=== PATIENT | male | born 1960 | race Hispanic/Latino ===

== ENCOUNTER 2020-05-10 15:14 | Emergency (ER) | payer MEDICARE ==
--- OUTSIDE RECORDS SUMMARY | 2020-05-10 15:16 | XMS REPORT | Continuity of Care Document ---
:1960 Author Organization [facility] t Address [address] [place] [address] Care Team Providers Name Role Phone Unavailable Unavailable Unavailable Problems Condition Condition Condition Status Onset Resolution Last Treating Co mments Source Name Details Category Date Date Treatment Clinician Date Combined Combined Diagnosis Active [facility] - insufficie insufficie Me moria ncy and ncy and l corporo-ve corporo-ve Ou tpati nous nous ent occlusive occlusive Clin ics erectile erectile dysfunctio dysfunctio n n Elevated Elevated Diagnosis Active [facility] PSA PSA [facility] BPH loc BPH loc Diagnosis Active [facility] w/o ur w/o ur [facility] - obs/LUTS obs/LUTS [facility] Allergies, Adverse Reactions, Alerts This patient has no known allergies or adverse reactions. Medications Ordered Filled Start Stop Current Ordering Indication Dosage Frequency Signature Comments Components Source Medication Medication Date Date Medication? Clinician (SIG) Name Name Valsartan Valsartan Yes [place] [address] [facility] Apriso Apriso Yes [place] [address] [facility] [place] [facility] Dexilant Dexilant Yes [place] [address] [facility] Tamsulosin Tamsulosin 2019- No [place] [address] [address] HCl HCl 08-03 Marcelino [facility] - 00:00 [facility] :00 l [facility] Procedures This patient has no known procedures. Encounters Start End Encounter Admission Attending Care Care Encounter Source Date/Time Date/Time Type Type Clinicians Facility Department ID 2020-03-08 2020-03-08 [facility] [id number] [facility] [address] 09[facility]00 09:00:00 t Specialty/U [facility] kes - Specialty rology [facility] /Urology Clinic l Clinic Outpati ent Clinics 2019-12-07 2019-12-07 [facility] [id number] [facility] [address] 09:30[facility]00 09:30:00 t Specialty/U [facility] kes - Specialty rology Memori a /Urology Clinic l Clinic Outpati ent Clinics 2019-09-06 2019-09-06 [facility] [id number] [facility] 10:30:00 10:30:00 t Specialty/U [facility]inta kes - Specialty rology Memori a /Urology Clinic l Clinic Outpati ent Clinics 2019-06-26 2019-06-26 [facility] [id number] [address] 12:44:00 12:44:00 t Specialty/U Aminta kes - Specialty rology Memori a /Urology Clinic l Clinic Outpati ent Clinics 2019-06-20 2019-06-20 [facility] [id number] [address] 10:00:00 10:00:00 t Specialty/U Aminta kes - Specialty rology Memori a /Urology Clinic l Clinic Outpati ent Clinics 2019 2019 [facility] [id number] 12:45:00 12:45:00 t Specialty/U Aminta kes - Specialty rology Memori a /Urology Clinic l Clinic Outpati ent Clinics 2019-06-05 2019-06-05 [facility] [id number] [address] 10:30:00 10:30:00 t Specialty/U Aminta kes - Specialty rology Memori a /Urology Clinic l Clinic Outpati ent Clinics Results This patient has no known results.
--- OUTSIDE RECORDS SUMMARY | 2020-05-10 15:16 | XMS REPORT ---
:1960 Author Organization [employer] Care Team Providers Name Role Phone [place] Benson Provider Role Unavailable Allergies, Adverse Reactions, Alerts Substance Reaction Event Type N.K.D.A. 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 Assessment BPH loc w/o ur obs/LUTS N40.0 Acti ve Assessment Elevated PSA R97.20 Active Medications Medication Code Code Instructions Start End Status Dosage System Date Date Dexilant [facility] 17819149177 60 MG Orally Active 1 caps ule Once a day Valsartan [facility] 50986918459 160 MG Orally Active 1 ta blet Once a day Apriso [facility] 32179804354 0.375 GM Orally Active 4 ca psules Once a day in the morning Tamsulosin HCl [facility] 89804753491 0.4 MG Orally Active 1 capsule Once a day Results No Known Results Summary Purpose eClinicalWorks Submission
--- NOTE | 2020-05-10 16:14 | RAD REPORT ---
EXAM DESCRIPTION: RAD - Chest Single View - 05/10/2020 4:01 pm CLINICAL HISTORY: CHEST PAIN, hypertension COMPARISON: January 2014 TECHNIQUE: AP portable chest image was obtained 05/10/2020 4:01 pm . FINDINGS: Lungs are clear. Heart and vasculature are normal. No measurable pleural effusion and no p neumothorax. No acute bony abnormality seen. No acute aortic findings suspected. IMPRESSION: No acute cardiopulmonary process. No significant change from comparison.
[2020-05-10 16:27] LABS: Absolute Lymphocytes (CBC) 1.7 K/uL (0.7-4.9); Basophils % 1.3 % (0-1.3); Hematocrit 36.8 % (39.6-49.0); Lymphocytes % 24.1 % (15.3-44.8); MPV 11.7 fL (7.6-11.3); RBC Red Blood Cell Count 4.35 M/uL (4.33-5.43)
[2020-05-10 16:28] LABS: Protime INR 1.07
[2020-05-10 16:44] LABS: ALT/SGPT 27 U/L (12-78); AST/SGOT 19 U/L (15-37); Albumin 3.2 g/dL (3.4-5.0); Alkaline Phosphatase 104 U/L (45-117); BUN Blood Urea Nitrogen 21 mg/dL (7-18); Bicarbonate 25 mmol/L (21-32); Bilirubin Direct 0.2 mg/dL (0-0.2); Bilirubin Total 0.6 mg/dL (0.2-1.0); Glucose Level 237 mg/dL (74-106); Magnesium 2.1 mg/dL (1.8-2.4); NT PRO-BNP 422 pg/mL (<125); Potassium 4.9 mmol/L (3.5-5.1); Protein, Total 7.9 g/dL (6.4-8.2); Sodium Level 136 mmol/L (136-145); Troponin (Emerg Dept Use Only) < 0.02 ng/mL (0.0-0.045)
--- NOTE | 2020-05-10 16:52 | ER ---
Nurse's Notes [facility] Name: Ranjit Connor Age: 59 yrs Sex: Male : 1960 Arrival Date: 05/10/2020 Time: 15:17 Bed 2 Private MD: Aracely Orosco H Diagnosis: Essential (primary) hypertension Presentation: 05/10 15:24 Chief complaint: Patient states: BP 206/82 earlier today at the dentists office. + YOST. ll1 Coronavirus screen: Client denies travel out of the [place] in the last 14 days. At this time, the client does not indicate any symptoms associated with coronavirus-19. Ebola Screen: Patient denies travel to an Ebola-affected area in the 21 days before illness onset. Initial Sepsis Screen: Does the patient meet any 2 criteria? No. Patient's initial sepsis screen is negative. Does the patient have a suspected source of infection? No. Patient's initial sepsis screen is negative. Risk Assessment: Do you want to hurt yourself or someone else? Patient reports no desire to harm self or others. Onset of symptoms was May 10, 2020. 15:24 Method Of Arrival: Ambulatory ll1 15:24 Acuity: ALEXANDER 3 ll1 Historical: - Allergies: 15:26 No Known Allergies; ll1 - PMHx: 15:26 Hypertension; Glaucoma; Diabetes - IDDM; ll1 - PSHx: 15:26 L eye retinal surgery S/P 2002; oral; L BKA; ll1 - Immunization history:: Flu vaccine is not up to date. - Social history:: Smoking status: Patient denies any tobacco usage or history of. Screenin:00 Abuse screen: Denies threats or abuse. Nutritional screening: No deficits noted. em Tuberculosis screening: No symptoms or risk factors identified. Fall Risk None identified. Assessment: 16:00 General: Appears in no apparent distress. comfortable, Behavior is calm, cooperative, em appropriate for age, Denies fever. Pain: Complains of pain in chest. Neuro: Level of Consciousness is awake, alert, obeys commands, Oriented to person, place, time, situation, Appropriate for age Reports blurred vision dizziness, headache. Cardiovascular: Capillary refill < 3 seconds Patient's skin is warm and dry. Respiratory: Airway is patent Respiratory effort is even, unlabored, Respiratory pattern is regular, symmetrical. GI: Patient currently denies nausea, vomiting. Derm: Skin is intact, is healthy with good turgor, Skin is pink, warm \T\ dry. 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 Vital Signs: 15:24 BP 180 / 82; Pulse 85; Resp 18; Temp 97.4; Pulse Ox 100% ; Weight 113.85 kg; Height 5 ll1 ft. 6 in. (167.64 cm); Pain 5/10; 16:34 BP 154 / 82; Pulse 82; Resp 18; Pulse Ox 100% on R/A; em 15:24 Body Mass Index 40.51 (113.85 kg, 167.64 cm) ll1 ED Course: 15:17 Patient arrived in ED. mr 15:17 Aracely Orosco DO is Private Physician. mr 15:25 Triage completed. ll1 15:26 Arm band placed on Patient placed in an exam room, on a stretcher. ll1 15:31 Dorita Bunch FNP-C is PHCP. kb 15:31 Alexis Marks MD is Attending Physician. kb 15:53 Mike Partida, PERRY is Primary Nurse. em 16:00 XRAY Chest (1 view) In Process Unspecified. EDMS 16:00 Patient has correct armband on for positive identification. Placed in gown. Bed in low em position. Call light in reach. surveillance monitor on. Pulse ox on. NIBP on. 16:05 Initial lab(s) drawn, by me, sent to lab. Inserted saline lock: 22 gauge in left em antecubital area, using aseptic technique. Blood collected. 16:20 EKG done, by ED staff, reviewed by Dorita BATES. em 16:51 Aracely Orosco DO is Referral Physician. kb 17:05 No provider procedures requiring assistance completed. IV discontinued, intact, tw2 bleeding controlled, No redness/swelling at site. Pressure dressing applied. Administered Medications: No medications were administered Outcome: 16:51 Discharge ordered by . kb 17:05 Discharged to home ambulatory. tw2 17:05 Condition: stable 17:05 Discharge instructions given to patient, Instructed on discharge instructions, follow up and referral plans. Demonstrated understanding of instructions, follow-up care. 17:09 Patient left the ED. tw2 Signatures: Dispatcher [employer] Dorita Saldaña, PAULO DRUMMOND-Francesca Ruano Edgar, RN RN Cordelia Killian RN RN tw2 Eugenie Mota RN RN ll1
--- NOTE | 2020-05-10 16:52 | EDPHYS ---
Physician Documentation [facility] Name: Ranjit Connor Age: 59 yrs Sex: Male : 1960 Arrival Date: 05/10/2020 Time: 15:17 Bed 2 Private MD: Aracely Orosco H ED Physician Alexis Marks HPI: 05/10 16:23 This 59 yrs old Male presents to ER via Ambulatory with complaints of High kb Blood Pressure. 16:23 The patient has elevated blood pressure and discovered this at a physician's office, kb and sent to the emergency department for evaluation. Onset: The symptoms/episode began/occurred this morning. Associated signs and symptoms: Pertinent positives: chest pain, headache, lightheadedness, Pertinent negatives: dizziness, dyspnea, nausea, visual changes, vomiting, weakness. The patient has experienced similar episodes in the past, chronically. The patient has been recently seen by a physician:. Pt reports he went to the dentist this morning and BP was high. States he has had some lightheadedness, headache and "maybe a little chest pressure." States he has had the symptoms for over a year so he didn't think anything of them. Reports he does not check his BP regularly and is on Losartan 50mg BID for HTN. States he hadn't been to the dentist in a long time so he thinks that is what made it high. . Historical: - Allergies: 15:26 No Known Allergies; ll1 - PMHx: 15:26 Hypertension; Glaucoma; Diabetes - IDDM; ll1 - PSHx: 15:26 L eye retinal surgery S/P 2002; oral; L BKA; ll1 - Immunization history:: Flu vaccine is not up to date. - Social history:: Smoking status: Patient denies any tobacco usage or history of. ROS: 16:22 Constitutional: Negative for fever, chills, and weight loss, Neck: Negative for injury, kb pain, and swelling, Respiratory: Negative for shortness of breath, cough, wheezing, and pleuritic chest pain, Abdomen/GI: Negative for abdominal pain, nausea, vomiting, diarrhea, and constipation, Back: Negative for injury and pain, MS/Extremity: Negative for injury and deformity, Skin: Negative for injury, rash, and discoloration. 16:22 Cardiovascular: Positive for chest pressure. 16:22 Neuro: Positive for headache, lightheaded. Exam: 16:22 Constitutional: This is a well developed, well nourished patient who is awake, alert, kb and in no acute distress. Head/Face: Normocephalic, atraumatic. Chest/axilla: Normal chest wall appearance and motion. Nontender with no deformity. No lesions are appreciated. Cardiovascular: Regular rate and rhythm with a normal S1 and S2. No gallops, murmurs, or rubs. Normal PMI, no JVD. No pulse deficits. Respiratory: Lungs have equal breath sounds bilaterally, clear to auscultation and percussion. No rales, rhonchi or wheezes noted. No increased work of breathing, no retractions or nasal flaring. Abdomen/GI: Soft, non-tender, with normal bowel sounds. No distension or tympany. No guarding or rebound. No evidence of tenderness throughout. Back: No spinal tenderness. No costovertebral tenderness. Full range of motion. Skin: Warm, dry with normal turgor. Normal color with no rashes, no lesions, and no evidence of cellulitis. MS/ Extremity: Pulses equal, no cyanosis. Neurovascular intact. Full, normal range of motion. Neuro: Awake and alert, GCS 15, oriented to person, place, time, and situation. Cranial nerves II-XII grossly intact. Motor strength 5/5 in all extremities. Sensory grossly intact. Cerebellar exam normal. Normal gait. 16:22 ECG was reviewed by the Attending Physician. Vital Signs: 15:24 BP 180 / 82; Pulse 85; Resp 18; Temp 97.4; Pulse Ox 100% ; Weight 113.85 kg; Height 5 ll1 ft. 6 in. (167.64 cm); Pain 5/10; 16:34 BP 154 / 82; Pulse 82; Resp 18; Pulse Ox 100% on R/A; em 15:24 Body Mass Index 40.51 (113.85 kg, 167.64 cm) ll1 MDM: 15:31 Patient medically screened. kb 16:22 Data reviewed: vital signs, nurses notes. Data interpreted: Pulse oximetry: on room air kb is 100 %. Interpretation: normal. 16:50 Counseling: I had a detailed discussion with the patient and/or guardian regarding: the kb historical points, exam findings, and any diagnostic results supporting the discharge/admit diagnosis, lab results, radiology results, the need for outpatient follow up, a family practitioner, to return to the emergency department if symptoms worsen or persist or if there are any questions or concerns that arise at home. 05/10 15:38 Order name: Basic Metabolic Panel; Complete Time: 16:48 kb 05/10 15:38 Order name: CBC with Diff; Complete Time: 16:29 kb 05/10 15:38 Order name: LFT's; Complete Time: 16:48 kb 05/10 15:38 Order name: Magnesium; Complete Time: 16:48 kb 05/10 15:38 Order name: NT PRO-BNP; Complete Time: 16:48 kb 05/10 15:38 Order name: PT-INR; Complete Time: 16:35 kb 05/10 15:38 Order name: Troponin (emerg Dept Use Only); Complete Time: 16:48 kb 05/10 15:38 Order name: XRAY Chest (1 view); Complete Time: 16:18 kb 05/10 15:38 Order name: EKG; Complete Time: 15:39 kb 05/10 15:38 Order name: Cardiac monitoring; Complete Time: 16:34 kb 05/10 15:38 Order name: EKG - Nurse/Tech; Complete Time: 16:34 kb 05/10 15:38 Order name: IV Saline Lock; Complete Time: 16:34 kb 05/10 15:38 Order name: Labs collected and sent; Complete Time: 16:34 kb 05/10 15:38 Order name: O2 Per Protocol; Complete Time: 15:39 kb 05/10 15:38 Order name: O2 Sat Monitoring; Complete Time: 15:39 kb EC:22 Rate is 80 beats/min. Rhythm is regular. QRS [place] is Normal. [place] interval is normal at kb 144 msec. QRS interval is normal at 74 msec. QT interval is normal at 368 msec. Administered Medications: No medications were administered Disposition: 05/10/20 16:51 Discharged to Home. Impression: Essential (primary) hypertension. - Condition is Stable. - Discharge Instructions: Hypertension, [id number], Managing Your Hypertension. - Medication Reconciliation Form, Thank You Letter, Antibiotic Education, Prescription Opioid Use form. - Follow up: Emergency Department; When: As needed; Reason: Worsening of condition. Follow up: Aracely Orosco DO; When: 2 - 3 days; Reason: Recheck today's complaints, Continuance of care, Re-evaluation by your physician. - Notes: Keep BP log and take to follow up appt with Dr Orosco Addendum: 05/11/2020 17:55 Co-signature as Attending Physician, Alexis Marks MD I agree with the assessment and c goncalves plan of care. Signatures: Dispatcher [employer] EDDorita Paulson, PAULO DRUMMOND-Alexis Watt MD MD cha Wise, Tara, RN RN tw2 Eugenie Mota RN RN ll1 Corrections: (The following items were deleted from the chart) 05/10 17:09 16:51 05/10/2020 16:51 Discharged to Home. Impression: Essential (primary) tw2 hypertension. Condition is Stable. Forms are Medication Reconciliation Form, Thank You Letter, Antibiotic Education, Prescription Opioid Use. Follow up: Emergency Department; When: As needed; Reason: Worsening of condition. Follow up: Aracely Orosco; When: 2 - 3 days; Reason: Recheck today's complaints, Continuance of care, Re-evaluation by your physician. kb
[2020-05-10 17:56] VITALS: TEMP 97.4; O2SAT 100
[2020-05-10 18:03] VITALS: BP 154/82
--- NOTE | 2020-05-12 11:14 | EKG ---
Test Date: 2020-05-10 Test Time: 16:19:27 Pot Lining Supervisor: HONORIO MEASUREMENT RESULTS: Intervals: Rate: 80 HI: 144 QRSD: 74 QT: 368 QTc: 424 [place]: P: 55 HI: 144 QRS: 51 T: 46 INTERPRETIVE STATEMENTS: Normal sinus rhythm Normal ECG Compared to ECG 02/23/2014 14:56:06 No significant changes Electronically Signed On 05-12-20 11:13:30 CDT by Chace Mcbride
== END 2020-05-10 17:09 | disposition home or self-care (01) ==
LOC: ER 15:14
DX: I10 Essential (primary) hypertension (principal); E11.9 Type 2 diabetes mellitus without complications
CPT/HCPCS: 36415; 71045; 80048; 80076; 83735; 83880; 84484; 85025; 85610; 93005; 99284

== ENCOUNTER 2022-04-14 14:15 | Observation (INO) | payer OTHER ==
--- OUTSIDE RECORDS SUMMARY | 2022-04-14 14:19 | XMS REPORT | Continuity of Care Document ---
:1960 Author Organization [facility] t Address [address] [place] [address] Care Team Providers Name Role Phone Unavailable Unavailable Unavailable Problems This patient has no known problems. Allergies, Adverse Reactions, Alerts This patient has no known allergies or adverse reactions. Medications Ordered Filled Start Stop Current Ordering Indication Dosage Frequency Signature Comments Components Source Medication Medication Date Date Medication? Clinician (SIG) Name Name Valsartan Valsartan Yes [place] 1 tablet Common [facility] Apriso Apriso Yes [place] 4 capsules Comm on [place]ino in the [facility] Dexilant Dexilant Yes [place] 1 capsule C [facility]mon [facility] Tamsulosin Tamsulosin 2019- No [place] 1 capsule Common HCl HCl 03-04 [facility] 00:00 - [facility] : [facility] Procedures This patient has no known procedures. Encounters Start End Encounter Admission Attending Care Care Encounter Source Date/Time Date/Time Type Type Clinicians Facility Department ID 2021-03-12 2021-03-12 [facility] [id number] Common 00:00:00 00:00:00 [facility] 2021-03-11 2021-03-11 [facility] [id number] Common 00:00:00 00:00:00 [facility] 2020-09-09 2020-09-09 [facility] [id number] Common 00:00:00 00:00:00 [facility] 2020-03-08 2020-03-08 [id number] Common 09:00:00 09:00:00 t Specialty/U [facility] Special[facility] - [facility] 2019-12-07 2019-12-07 [facility] [id number] Common 09:30:00 09:30:00 t Specialty/[facility] [place] Specialty [facility] - [facility] 2019-09-06 2019-09-06 Out[facility] [id number] Common 10:30:00 10:30:00 t Specialty/[facility] Specialty [facility] - [facility]rology [facility] 2019-06-26 2019-06-26 Outpatient [facility] [place] [id number] Common 12:44:00 12:44:00 t Specialty/[facility] [place] Specialty [facility]y - [facility]rology [facility] 2019-06-20 2019-06-20 Outpatient [facility] [place] [id number] Common 10:00:00 10:00:00 t Specialty/[facility] [place] Specialty [facility] - [facility] 2019 2019 Outpatient [facility] [place] [id number] Common 12:45:00 12:45:00 t Specialty/U [place] Specialty rology - [facility] 2019-06-05 2019-06-05 Outpatient [facility] [place] [id number] Common 10:30:00 10:30:00 t Specialty/U [facility] [place] Specialty rology - [facility] Results This patient has no known results.
[2022-04-14] MEDS ORDERED: NA CHLORIDE 0.9% 1,000 ML ONE (15:03)
[2022-04-14 15:10] LABS: Urine Blood Trace-intact (Negative); Urine Glucose 3+ (Negative); Urine Protein 2+ (Negative); Urine Specific Gravity 1.025 (1.005-1.030); Urine pH 5.5 (5.0-7.0)
[2022-04-14 15:28] LABS: Protime INR 1.09
[2022-04-14 15:32] LABS: SARS-CoV-2 Antigen Rapid Res Negative (Negative)
[2022-04-14 15:34] LABS: Absolute Lymphocytes (CBC) 1.4 K/uL (0.7-4.9); Hematocrit 36.9 % (39.6-49.0); Lymphocytes % 10.6 % (15.3-44.8); MCV 86.9 fL (80-100); MPV 10.8 fL (7.6-11.3); RBC Red Blood Cell Count 4.24 M/uL (4.33-5.43)
--- NOTE | 2022-04-14 15:53 | RAD REPORT ---
EXAM DESCRIPTION: RAD - Chest Single View - 04/14/2022 3:37 pm CLINICAL HISTORY: COUGH Chest pain. COMPARISON: Chest Single View dated 05/10/2020; CHEST SINGLE VIEW dated 02/23/2014; CHEST SINGLE VIEW dated 01/28/2010 FINDINGS: Portable technique limits examination quality. Interstitial markings are mildly prominent. Small nodular focus in the inferior right lung is noted, nonspecific. The heart is normal in size. No displaced fractures.Followup nonemergent CT chest would be useful for assessment of the nodular density.
[2022-04-14 16:27] LABS: Albumin 3.3 g/dL (3.4-5.0); Bilirubin Direct 0.1 mg/dL (0-0.2); Bilirubin Total 0.6 mg/dL (0.2-1.0); Potassium 5.2 mmol/L (3.5-5.1); Protein, Total 8.2 g/dL (6.4-8.2); Troponin High Sensitivity 12.2 pg/mL (<58.9)
--- NOTE | 2022-04-14 16:57 | EDPHYS ---
Physician Documentation [facility] Name: Ranjit Connor Age: 61 yrs Sex: Male : 1960 Arrival Date: 04/14/2022 Time: 14:17 Bed 14 Private MD: Aracely Orosco H ED Physician Alexis Marks HPI: 04/14 16:48 This 61 yrs old Male presents to ER via Ambulatory with complaints of Abnormal aby Lab Results, Shaking. 16:48 The patient has shortness of breath at rest. Onset: The symptoms/episode began/occurred aby 2 day(s) ago. Duration: The symptoms are continuous, and are steadily getting worse. Historical: - Allergies: 14:45 No Known Allergies; jl7 - Home Meds: 14:46 Apriso 0.375 gram oral cp24 4 caps once daily [Active]; Dexilant 60 mg oral CpDB 1 cap jl7 once daily [Active]; latanoprost ophthalmic (eye) [Active]; Levemir U-100 Insulin 100 unit/mL subcutaneous soln twice a day [Active]; metoprolol tartrate 50 mg Oral tab [Active]; montelukast 10 mg oral tab 1 tab once daily [Active]; pioglitazone 30 mg oral tab 1 tab once daily [Active]; tamsulosin 0.4 mg oral cap 1 cap once daily [Active]; - PMHx: 14:45 Diabetes - IDDM; Glaucoma; Hypertension; ulcerative colitis; jl7 - PSHx: 14:45 BKA - left; jl7 - Immunization history:: Client reports receiving the 2nd dose of the Covid vaccine. - Social history:: Smoking status: Patient denies any tobacco usage or history of. ROS: 16:49 Constitutional: Negative for fever, chills, and weight loss, Eyes: Negative for injury, aby pain, redness, and discharge, ENT: Negative for injury, pain, and discharge, Neck: Negative for injury, pain, and swelling, Abdomen/GI: Negative for abdominal pain, nausea, vomiting, diarrhea, and constipation, Back: Negative for injury and pain, : Negative for injury, bleeding, discharge, and swelling, Skin: Negative for injury, rash, and discoloration, Neuro: Negative for headache, weakness, numbness, tingling, and seizure, Psych: Negative for depression, anxiety, suicide ideation, homicidal ideation, and hallucinations, Allergy/Immunology: Negative for hives, rash, and allergies, Endocrine: Negative for neck swelling, polydipsia, polyuria, polyphagia, and marked weight changes. 16:49 Cardiovascular: Positive for chest pain. 16:49 Respiratory: Positive for cough, shortness of breath, at rest. 16:49 MS/extremity: Positive for decreased range of motion, pain, swelling, of the right leg. Exam: 16:49 Constitutional: This is a well developed, well nourished patient who is awake, alert, aby and in no acute distress. Head/Face: Normocephalic, atraumatic. Eyes: Pupils equal round and reactive to light, extra-ocular motions intact. Lids and lashes normal. Conjunctiva and sclera are non-icteric and not injected. Cornea within normal limits. Periorbital areas with no swelling, redness, or edema. ENT: Nares patent. No nasal discharge, no septal abnormalities noted. Tympanic membranes are normal and external auditory canals are clear. Oropharynx with no redness, swelling, or masses, exudates, or evidence of obstruction, uvula midline. Mucous membranes moist. Neck: Trachea midline, no thyromegaly or masses palpated, and no cervical lymphadenopathy. Supple, full range of motion without nuchal rigidity, or vertebral point tenderness. No Meningismus. Chest/axilla: Normal chest wall appearance and motion. Nontender with no deformity. No lesions are appreciated. Back: No spinal tenderness. No costovertebral tenderness. Full range of motion. Male : Normal genitalia with no discharge or lesions. Skin: Warm, dry with normal turgor. Normal color with no rashes, no lesions, and no evidence of cellulitis. Neuro: Awake and alert, GCS 15, oriented to person, place, time, and situation. Cranial nerves II-XII grossly intact. Motor strength 5/5 in all extremities. Sensory grossly intact. Cerebellar exam normal. Normal gait. Psych: Awake, alert, with orientation to person, place and time. Behavior, mood, and affect are within normal limits. 16:49 Cardiovascular: Rate: tachycardic, actual rate is 101 bpm, Rhythm: regular, Pulses: Pulses are 4+ in bilateral radial, brachial, femoral, popliteal, posterior tibial and and dorsalis pedis arteries.. Heart sounds: normal, normal S1and S2, no S3 or S4, no murmur, no rub, no gallop, Edema: 2+ edema to level of right midcalf, JVD: is noted bilaterally, to 2 cm. 16:49 ECG was reviewed by the Attending Physician. Vital Signs: 14:42 BP 190 / 95; Pulse 103; Resp 17; Temp 98.7; Pulse Ox 98% ; Weight 116.57 kg; Height 5 jl7 ft. 7 in. (170.18 cm); Pain 0/10; 16:00 BP 169 / 78; Pulse 107; Resp 25; Pulse Ox 100% on R/A; em6 19:06 BP 158 / 81; Pulse 101; Resp 19; Pulse Ox 97% on R/A; lg3 14:42 Body Mass Index 40.25 (116.57 kg, 170.18 cm) jl7 MDM: 14:45 Patient medically screened. aby 16:51 Differential diagnosis: CHF exacerbation, abnormal EKG, coronary artery disease chest aby wall pain, Cholelithiasis costochondritis, hiatal hernia, pneumonia, pulmonary embolus, pneumonia, pulmonary edema, reactive airway disease, Sepsis. Antibiotic administration: Not indicated. HEART Score: History: Moderately Suspicious (1), ECG: Non specific repolarization disturbance / LBTB / PM (1), Age: > 45 and < 65 years (1), Risk Factors: > or = 3 Risk factors for atherosclerotic disease (2), [Hypercholesterolemia] [Hypertension] [DM] [+ Family HX] [Obesity] Troponin: < or = 1 x Normal Limit (0). The patient was given aspirin in the Emergency Department. The patient's Wells Deep Vein Thrombosis Score was calculated as follows: the patients entire leg is swollen (1.0 Pts) Heart Rate >100 BPM (1.5 Pts) Total Score: 0-2 Pts- Low Risk. The patient's pulmonary embolism risk score was calculated as follows: the patients heart rate is greater than 100 beats per minute (1.5 Pts) Total Score: 0-2 points. This patient was found to be at low risk for a pulmonary embolism by using the Well's assessment criteria the patients heart rate is greater than 100 beats per minute (1.5 Pts) Total Score: 0-2 points. This patient was found to be at low risk for a pulmonary embolism by using the Well's assessment criteria. DOROTHY Risk Score: 1 - Three or more CAD risk factors, 1- Known CAD, 1 - Recent [<24hrs] Severe Angina, TOTAL SCORE = 3. Immunization status: Influenza vaccine: within last 5 years. Data reviewed: vital signs, nurses notes, EMS record, lab test result(s), EKG, radiologic studies, plain films. Data interpreted: monitor tech: rate is 107 beats/min, rhythm is regular. 04/14 14:47 Order name: Basic Metabolic Panel; Complete Time: 16:39 [facility] 04/14 14:47 Order name: CBC with Diff; Complete Time: 15:59 [facility] 04/14 14:47 Order name: LFT's; Complete Time: 16:39 [facility] 04/14 14:47 Order name: Magnesium; Complete Time: 16:39 [facility] 04/14 14:47 Order name: NT PRO-BNP; Complete Time: 16:39 [facility] 04/14 14:47 Order name: PT-INR; Complete Time: 15:59 [facility] 04/14 14:47 Order name: Troponin HS; Complete Time: 16:39 [facility] 04/14 14:47 Order name: XRAY Chest (1 view); Complete Time: 15:59 [facility] 04/14 14:47 Order name: SARS RAPID; Complete Time: 15:59 [facility] 04/14 15:11 Order name: Urine Dipstick-Ancillary; Complete Time: 15:59 EDMS 04/14 15:55 Order name: Glucose, Ancillary Testing; Complete Time: 15:59 EDMS 04/14 14:47 Order name: EKG - Nurse/Tech; Complete Time: 14:47 mb7 04/14 14:47 Order name: EKG; Complete Time: 14:48 [facility] 04/14 14:47 Order name: Cardiac monitoring; Complete Time: 14:48 [facility] 04/14 14:47 Order name: EKG - Nurse/Tech; Complete Time: 14:48 [facility] 04/14 14:47 Order name: IV Saline Lock; Complete Time: 15:10 [facility] 04/14 14:47 Order name: Labs collected and sent; Complete Time: 15:10 [facility] 04/14 14:47 Order name: O2 Per Protocol; Complete Time: 14:48 [facility] 04/14 14:47 Order name: O2 Sat Monitoring; Complete Time: 14:48 [facility] 04/14 14:47 Order name: Urine Dipstick-Ancillary (obtain specimen); Complete Time: 15:10 [facility] 04/14 16:51 Order name: EKG; Complete Time: 16:52 bd EC:49 Rate is 101 beats/min. Rhythm is regular. QRS Alpine is Normal. SC interval is normal. aby QRS interval is normal. QT interval is normal. No Q waves. T waves are Normal. No ST changes noted. Clinical impression: Abnormal EKG without significant change and No evidence of ischemia. Interpreted by me. Reviewed by me. Administered Medications: 07:20 Drug: Semglee 100 unit/mL 25 units Route: Sub-Q; Site: left lower abdomen; em6 18:00 Follow up: Response: No adverse reaction em6 15:10 Drug: NS 0.9% 1000 ml Route: IV; Rate: 75 ml/hr; Site: left antecubital; em6 17:00 Drug: Nitro-Bid (nitroglycerin) Ointment 2 % 1 inches Route: Transdermal; Site: em6 anterior chest wall; 18:00 Follow up: Response: No adverse reaction em6 17:00 Drug: Lasix (furosemide) 60 mg Route: IVP; Site: left antecubital; em6 18:00 Follow up: Response: No adverse reaction em6 17:00 Drug: Aspirin Chewable Tablet 162 mg Route: PO; em6 18:00 Follow up: Response: No adverse reaction em6 17:00 Drug: Tylenol 1000 mg Route: PO; em6 18:00 Follow up: Response: No adverse reaction em6 17:20 Drug: Kayexalate (polystyrene) 45 grams Route: PO; em6 18:00 Follow up: Response: No adverse reaction em6 17:20 Drug: Lopressor (metoprolol TARTRATE) 50 mg Route: PO; em6 18:00 Follow up: Response: No adverse reaction em6 17:20 Drug: Insulin Regular Human 5 units {Co-Signature: jd3 (Alfred Ibrahim RN).} Route: em6 IVP; Site: left antecubital; 19:23 Follow up: Response: No adverse reaction em6 Disposition Summary: 04/14/22 16:57 Hospitalization Ordered Hospitalization Status: Inpatient Admission aby Provider: Charanjit Fernandez cha Location: Telemetry/MedSurg (Inpatient) aby Condition: Fair aby Problem: new aby Symptoms: have improved aby Bed/Room Type: Standard aby Room Assignment: 425(04/14/22 18:49) dw Diagnosis - Dyspnea aby - Systolic (congestive) heart failure aby - Acute kidney failure, unspecified - ON CHRONIC aby - Hyperkalemia aby - Essential (primary) hypertension aby - Obesity, unspecified aby Forms: - Medication Reconciliation Form aby - SBAR form aby Signatures: Dispatcher [employer] Karen Otero RN RN dw Anderson, Corey, MD MD cha Leal, Jahala, RN RN jl7 Francesca Morrison7 Aminta Parrish RN RN em6 Alfred Ibrahim RN jd3 Corrections: (The following items were deleted from the chart) 18:49 16:57 aby dw
--- NOTE | 2022-04-14 16:57 | ER ---
Nurse's Notes [facility] Name: Ranjit Connor Age: 61 yrs Sex: Male : 1960 Arrival Date: 04/14/2022 Time: 14:17 Bed 14 Private MD: Aracely Orosco H Diagnosis: Dyspnea;Systolic (congestive) heart failure;Acute kidney failure, unspecified-ON CHRONIC;Hyperkalemia;Essential (primary) hypertension;Obesity, unspecified Presentation: 04/14 14:42 Chief complaint: Patient states: Sent by PCP for potassium 6.2. Coronavirus screen: At jl7 this time, the client does not indicate any symptoms associated with coronavirus-19. Ebola Screen: No symptoms or risks identified at this time. Initial Sepsis Screen: Does the patient meet any 2 criteria? No. Patient's initial sepsis screen is negative. Does the patient have a suspected source of infection? No. Patient's initial sepsis screen is negative. Risk Assessment: Do you want to hurt yourself or someone else? Patient reports no desire to harm self or others. Onset of symptoms was April 13, 2022. 14:42 Method Of Arrival: Ambulatory 7 14:42 Acuity: ALEXANDER 2 jl7 Triage Assessment: 14:46 General: Appears in no apparent distress. uncomfortable, Behavior is calm, cooperative, jl7 appropriate for age. Pain: Denies pain. Historical: - Allergies: 14:45 No Known Allergies; jl7 - Home Meds: 14:46 Apriso 0.375 gram oral cp24 4 caps once daily [Active]; Dexilant 60 mg oral CpDB 1 cap jl7 once daily [Active]; latanoprost ophthalmic (eye) [Active]; Levemir U-100 Insulin 100 unit/mL subcutaneous soln twice a day [Active]; metoprolol tartrate 50 mg Oral tab [Active]; montelukast 10 mg oral tab 1 tab once daily [Active]; pioglitazone 30 mg oral tab 1 tab once daily [Active]; tamsulosin 0.4 mg oral cap 1 cap once daily [Active]; - PMHx: 14:45 Diabetes - IDDM; Glaucoma; Hypertension; ulcerative colitis; jl7 - PSHx: 14:45 BKA - left; jl7 - Immunization history:: Client reports receiving the 2nd dose of the Covid vaccine. - Social history:: Smoking status: Patient denies any tobacco usage or history of. Screenin:00 Abuse screen: Denies threats or abuse. Nutritional screening: No deficits noted. em6 Tuberculosis screening: No symptoms or risk factors identified. Fall Risk IV access (20 points). Total Lorenz Fall Scale indicates No Risk (0-24 pts). Assessment: 15:00 General: Appears comfortable, Behavior is cooperative. Pain: Complains of pain in left em6 low back and right low back Pain does not radiate. Pain currently is 6 out of 10 on a pain scale. Quality of pain is described as pressure, sharp, Pain began 1 day ago. Is continuous. Neuro: Chavez Agitation-Sedation Scale (RASS): 0 - Alert and Calm Level of Consciousness is awake, alert, obeys commands, Oriented to person, place, time, situation, Reports headache frontal area. Cardiovascular: Heart tones present Patient's skin is warm and dry. Rhythm is sinus rhythm. Respiratory: Airway is patent Respiratory effort is even, labored, Respiratory pattern is regular, symmetrical, Breath sounds are clear bilaterally. GI: Abdomen is non-distended. : No signs and/or symptoms were reported regarding the genitourinary system. EENT: No signs and/or symptoms were reported regarding the EENT system. Derm: No signs and/or symptoms reported regarding the dermatologic system. Musculoskeletal: Amputation of left leg. shakiness. 15:58 Reassessment: notified provider of the new symptoms. no new orders. . Pain: Complains em6 of pain in back Pain does not radiate. Pain currently is 6 out of 10 on a pain scale. Neuro: Level of Consciousness is awake, alert, obeys commands, Oriented to person, place, time, situation. Cardiovascular: Reports chest pain. Respiratory: Reports shortness of breath. 17:00 Reassessment: Patient appears in no apparent distress at this time. Patient is alert, em6 oriented x 3, equal unlabored respirations, skin warm/dry/pink. Patient states symptoms have improved. shakiness and chest pain has stopped.. 18:00 Reassessment: Patient appears in no apparent distress at this time. Patient and/or em6 family updated on plan of care and expected duration. Pain level reassessed. Patient is alert, oriented x 3, equal unlabored respirations, skin warm/dry/pink. 19:38 General: attempted to call report. no answer on 4th floor. will try again. lg3 20:20 General: spoke with Mulugetae on 4th floor. nurse not avaliable and will call back. . lg3 Vital Signs: 14:42 BP 190 / 95; Pulse 103; Resp 17; Temp 98.7; Pulse Ox 98% ; Weight 116.57 kg; Height 5 jl7 ft. 7 in. (170.18 cm); Pain 0/10; 16:00 BP 169 / 78; Pulse 107; Resp 25; Pulse Ox 100% on R/A; em6 19:06 BP 158 / 81; Pulse 101; Resp 19; Pulse Ox 97% on R/A; lg3 14:42 Body Mass Index 40.25 (116.57 kg, 170.18 cm) jl7 ED Course: 14:17 Patient arrived in ED. mr 14:17 Aracely Orosco DO is Private Physician. mr 14:45 Triage completed. jl7 14:45 Alexis Marks MD is Attending Physician. aby 14:46 Arm band placed on right wrist. jl7 14:47 EKG done, by ED staff, reviewed by Alexis Marks MD. mb7 14:47 Patient has correct armband on for positive identification. Placed in gown. Bed in low mb7 position. Call light in reach. Side rails up X 1. Door closed. Noise minimized. Warm blanket given. Client placed on continuous cardiac and pulse oximetry monitoring. NIBP monitoring applied. compliance monitor on. 15:10 SARS RAPID Sent. em6 15:10 Inserted saline lock: in left antecubital area, using aseptic technique. Blood em6 collected. 15:24 Alfred Ibrahim, PERRY is Primary Nurse. jd3 15:39 XRAY Chest (1 view) In Process Unspecified. EDMS 16:55 Charanjit Fernandez MD is Hospitalizing Provider. aby 19:07 No provider procedures requiring assistance completed. Patient admitted, IV remains in lg3 place. intact, No redness/swelling at site. Administered Medications: 07:20 Drug: Semglee 100 unit/mL 25 units Route: Sub-Q; Site: left lower abdomen; em6 18:00 Follow up: Response: No adverse reaction em6 15:10 Drug: NS 0.9% 1000 ml Route: IV; Rate: 75 ml/hr; Site: left antecubital; em6 17:00 Drug: Nitro-Bid (nitroglycerin) Ointment 2 % 1 inches Route: Transdermal; Site: em6 anterior chest wall; 18:00 Follow up: Response: No adverse reaction em6 17:00 Drug: Lasix (furosemide) 60 mg Route: IVP; Site: left antecubital; em6 18:00 Follow up: Response: No adverse reaction em6 17:00 Drug: Aspirin Chewable Tablet 162 mg Route: PO; em6 18:00 Follow up: Response: No adverse reaction em6 17:00 Drug: Tylenol 1000 mg Route: PO; em6 18:00 Follow up: Response: No adverse reaction em6 17:20 Drug: Kayexalate (polystyrene) 45 grams Route: PO; em6 18:00 Follow up: Response: No adverse reaction em6 17:20 Drug: Lopressor (metoprolol TARTRATE) 50 mg Route: PO; em6 18:00 Follow up: Response: No adverse reaction em6 17:20 Drug: Insulin Regular Human 5 units {Co-Signature: angelique (Alfred Ibrahim RN).} Route: em6 IVP; Site: left antecubital; 19:23 Follow up: Response: No adverse reaction em6 Medication: 19:08 VIS not applicable for this client. lg3 Outcome: 16:57 Decision to Hospitalize by Provider. aby 19:07 Admitted to Med/surg accompanied by tech. lg3 19:07 Condition: stable 19:07 Instructed on the need for admit, Demonstrated understanding of instructions. 21:46 Patient left the ED. kl Signatures: Dispatcher [employer] EDMS Kami Mota RN RN kl Anderson, Corey, MD MD cha Rivera, Mary mr Leal, Jahala, RN RN jl7 Davies, Jonathon, RN RN jd3 Gibson, Lacie, RN RN lg3 Breneman, Mary Aminta Kirkpatrick RN RN em6 Alfred merino Corrections: (The following items were deleted from the chart) 15:16 15:00 Musculoskeletal: Amputation of left leg. em6 em6
[2022-04-14] MEDS ORDERED: ASPIRIN 81 MG CHEWABLE TABLET ONE (17:02)
[2022-04-14] MEDS ORDERED: FUROSEMIDE 20 MG/ 2ML VIAL ONE (17:02)
[2022-04-14] MEDS ORDERED: ACETAMINOPHEN 500 MG TAB ONE (17:03)
[2022-04-14] MEDS ORDERED: FUROSEMIDE 40 MG/4 ML VIAL ONE (17:03)
[2022-04-14] MEDS ORDERED: NITROGLYCERIN 1 GM PKT TD ONE (17:08)
[2022-04-14] MEDS ORDERED: METOPROLOL TAR 50 MG TAB ONE (17:38)
[2022-04-14] MEDS ORDERED: INSULIN GLARGINE 100 UNIT/ML SQ ONE (17:38)
[2022-04-14] MEDS ORDERED: SOD POLYSTYREN SUL 15 GM/60 ML UCUP ONE (17:39)
[2022-04-14] MEDS ORDERED: INSULIN -REGULAR HUMAN 50 UNIT/0.5 ML ML ONE (17:39)
--- NOTE | 2022-04-14 19:48 | P.HP ---
Certification for Inpatient Patient admitted to: Inpatient With expected LOS: <2 Midnights Patient will require the following post-hospital care: None Practitioner: I am a practitioner with admitting privileges, knowledge of patient current condition, hospital course, and medical plan of care. Services: Services provided to patient in accordance with Admission requirements found in Title 42 Section 412.3 of the Code of Federal Regulations <Harvey Duran - Last Filed: 04/14/22 19:43> Patient History Date of Service: 04/14/22 Reason for admission: MANPREET, hyperkalemia History of Present Illness: 61-year-old male with history of CKD 3 baseline creatinine around 1.6, diabetes mellitus type 2insulin-dependent, hypertension and ulcerative colitis presented to the emergency department today for abnormal lab, chest pain. He was told that his sugar was high and his potassium was also elevated by his physician and was referred to the emergency department. He was evaluated here in the emergency department his labs were significant for acute kidney injury with creatinine of 2.06 GFR 36 BUN 42 potassium 5.2 glucose 317 BNP 1065 white blood cell count 13.1 urine with 2+ protein 3+ glucose trace blood. His initial high- sensitivity troponin was 12.2 EKG without STEMI criteria present chest x-ray showed mildly prominent interstitial markings with small nodular focus in the inferior right lung noted which is nonspecific follow-up nonemergent CT chest would be useful for assessment of nodular density. Patient with history of left BKA has pitting edema of the right lower extremity he was given IV Lasix as well as Kayexalate in the emergency department to address his mild hyperkalemia, ED provider wishes to admit for further evaluation and management. - Past Medical/Surgical History Diabetic: Yes -: Diabetes mellitus type 2insulin-dependent -: CKD 3 -: Ulcerative colitis -: Hypertension -: Left BKA Psychosocial/ Personal History: Patient is disabled, lives at home with his daughter - Family History Mother -: Heart disease, Diabetes Father -: Heart disease - Social History Smoking Status: Never smoker Alcohol use: No CD- Drugs: No Caffeine use: Yes Place of Residence: Home <Harvey Duran - Last Filed: 04/14/22 19:43> Date of Service: 04/15/22 <Charanjit Fernandez - Last Filed: 04/15/22 19:25> Allergies No Known Allergies Allergy (Verified 04/14/22 23:07) Home Medications: Dexlansoprazole [Dexilant] 60 mg PO SEECOM 04/15/22 Insulin Detemir [Levemir] See Protocol SQ BID 04/15/22 Latanoprost/Pf [Latanoprost 0.005% Eye Drop] 1 gtt EACH EYE BEDTIME 04/15/22 Mesalamine [Apriso] 4 tab PO DAILY 04/15/22 Metoprolol Succinate [Toprol Xl*] 50 mg PO DAILY 04/15/22 Montelukast [Singulair*] 10 mg PO DAILY 04/15/22 Pioglitazone HCl 30 mg PO DAILY 04/15/22 Tamsulosin [Flomax*] 0.4 mg PO DAILY 04/15/22 Review of Systems 10-point ROS is otherwise unremarkable General: Malaise Cardiovascular: Chest Pain <Harvey Duran - Last Filed: 04/14/22 19:43> Physical Examination - Physical Exam General: Alert, In no apparent distress, Oriented x3 HEENT: Atraumatic, PERRLA, Mucous membr. moist/pink, EOMI, Sclerae nonicteric Neck: Supple, 2+ carotid pulse no bruit, No LAD Respiratory: Clear to auscultation bilaterally, Normal air movement Cardiovascular: Regular rate/rhythm, Normal S1 S2 Capillary refill: <2 Seconds Gastrointestinal: Normal bowel sounds, No tenderness Musculoskeletal: No tenderness Integumentary: No rashes Neurological: Normal speech, Normal strength at 5/5 x4 extr, Normal tone, Normal affect - Studies Laboratory Data (last 24 hrs) 04/14/22 15:01: PT 12.0, INR 1.09 04/14/22 15:01: WBC 13.10 H, Hgb 12.3 L, Hct 36.9 L, Plt Count 110 L 04/14/22 15:01: Sodium 136, Potassium 5.2 H, BUN 42 H, Creatinine 2.06 H, Glucose 317 H, Magnesium 2.0, Total Bilirubin 0.6, AST 16, ALT 23, Alkaline Phosphatase 100 <Harvey Duran - Last Filed: 04/14/22 19:43> Assessment and Plan - Plan Assessment: MANPREET superimposed on CKD 3 with mild hyperkalemia Pedal edema, elevated BNP suspect new onset CHF-unknown EF Diabetes mellitus type 2insulin-dependent with hyperglycemia Hypertension Ulcerative colitis Plan: MANPREET superimposed on CKD 3 with mild hyperkalemia: Nephrology consulted, renal ultrasound ordered patient was given IV Lasix in the emergency department as he appeared to be volume overloaded with pedal edema, elevated BNP. Patient takes hydrochlorothiazide at home continue gentle diuresis with Lasix. Appreciate further input from nephrology. Renal diet. Pedal edema, elevated BNP suspect new onset CHFunknown EF: Echocardiogram ordered, continue gentle diuresis. Patient's beta-garett continued, he was taken off of losartan by his PCP given his renal dysfunction. Hold hydrochlorothiazide at this time. Diabetes mellitus type 2insulin-dependent with hyperglycemia: ACHS Accu-Chek, sliding scale insulin. Continue long-acting insulin when doses verified. Hypertension: Continue home dose of metoprolol was recently taken off of losartan. Ulcerative colitis: No active flare, continue medications once verified. DVT PPX: Heparin Code status: Full Discharge Plan: Home Plan to discharge in: 48 Hours - Advance Directives Does patient have a Living Will: No Does patient have a Durable POA for Healthcare: No - Code Status/Comfort Care Code Status Assessed: Yes (Full code) Critical Care: No Time Spent Managing Pts Care (In Minutes): 70 <Harvey Duran - Last Filed: 04/14/22 19:43> Physician Review: Patient Assessed, Agree with Above Assessment and Plan <Charanjit Fernandez - Last Filed: 04/15/22 19:25>
[2022-04-14] MEDS ORDERED: ONDANSETRON 4 MG/2 ML VIAL IV PRN (21:44)
[2022-04-14] MEDS: INSULIN -REGULAR HUMAN 50 UNIT/0.5 ML ML SQ SCH (21:44)
[2022-04-14] MEDS ORDERED: ACETAMINOPHEN 500 MG TAB PO PRN (21:44)
[2022-04-14] MEDS: TAMSULOSIN 0.4 MG SR CAP PO SCH (22:58)
[2022-04-14] MEDS: HEPARIN 5000 UNIT/ML 1 ML VIAL SQ SCH (22:59)
[2022-04-15 03:44] LABS: Absolute Lymphocytes (CBC) 1.1 K/uL (0.7-4.9); Hematocrit 30.6 % (39.6-49.0); Lymphocytes % 6.4 % (15.3-44.8); MPV 10.9 fL (7.6-11.3); RBC Red Blood Cell Count 3.55 M/uL (4.33-5.43)
[2022-04-15 04:11] LABS: Albumin 2.7 g/dL (3.4-5.0); Bilirubin Total 0.8 mg/dL (0.2-1.0); Magnesium 1.5 mg/dL (1.8-2.4); Potassium 4.4 mmol/L (3.5-5.1); Protein, Total 6.7 g/dL (6.4-8.2); Thyroid Stimulating Hormone 1.08 uIU/mL (0.360-3.740); Troponin High Sensitivity 28.8 pg/mL (<58.9)
[2022-04-15] MEDS: METOPROLOL XL 50 MG TAB PO SCH (05:47)
--- NOTE | 2022-04-15 06:53 | RAD REPORT ---
EXAM DESCRIPTION: US - Renal Ultrasound-Complete - 04/15/2022 4:49 am CLINICAL HISTORY: MANPREET/HyperK COMPARISON: Abdomen Exam Complete dated 12/15/2021 FINDINGS: The right kidney measures grossly 12.5 x 6.1 cm. The left kidney measures grossly 11.3 x 5.8 cm. No significant change in renal size since the November comparison study. Renal cortical thickness and echogenicity are normal. No hydronephrosis or suspicious renal mass. Renal detail is limited by body habitus affects and patient mobility limitations. No bladder wall thickening or mass. No intraluminal stone or mass. IMPRESSION: No hydronephrosis or suspicious renal mass. No significant changes from the November 2021 study.
[2022-04-15] MEDS: INSULIN -REGULAR HUMAN 50 UNIT/0.5 ML ML SQ SCH ×4 (07:30→21:55)
[2022-04-15] MEDS: FUROSEMIDE 20 MG/ 2ML VIAL IV SCH ×2 (09:00→17:48)
[2022-04-15] MEDS: HEPARIN 5000 UNIT/ML 1 ML VIAL SQ SCH ×2 (09:00→21:56)
[2022-04-15 11:51] VITALS: O2SAT 97
--- NOTE | 2022-04-15 12:14 | P.CNS ---
Date of Consult: 04/15/22 Reason for Consult: Renal insufficiency, recent hyperkalemia Requesting Physician: Harvey Duran Chief Complaint: MANPREET, hyperkalemia Allergies No Known Allergies Allergy (Verified 04/14/22 23:07) Home Medications: Dexlansoprazole [Dexilant] 60 mg PO SEECOM 04/15/22 Insulin Detemir [Levemir] See Protocol SQ BID 04/15/22 Latanoprost/Pf [Latanoprost 0.005% Eye Drop] 1 gtt EACH EYE BEDTIME 04/15/22 Mesalamine [Apriso] 4 tab PO DAILY 04/15/22 Metoprolol Succinate [Toprol Xl*] 50 mg PO DAILY 04/15/22 Montelukast [Singulair*] 10 mg PO DAILY 04/15/22 Pioglitazone HCl 30 mg PO DAILY 04/15/22 Tamsulosin [Flomax*] 0.4 mg PO DAILY 04/15/22 - Past Medical/Surgical History Diabetic: Yes -: Diabetes mellitus type 2insulin-dependent -: CKD 3 -: Ulcerative colitis -: Hypertension -: Left BKA Psychosocial/ Personal History: Patient is disabled, lives at home with his daughter - Family History Mother Medical History: Heart disease, Diabetes Father Medical History: Heart disease - Social History Smoking Status: Former smoker Alcohol use: No CD- Drugs: No Caffeine use: Yes Place of Residence: Home Physical Examination Temp Pulse Resp BP Pulse Ox 98.7 F 101 H 19 158/81 H 95 04/15/22 11:43 04/15/22 11:48 04/15/22 11:48 04/15/22 11:48 04/15/22 08:00 Laboratory Data (last 24 hrs) 04/14/22 15:01: PT 12.0, INR 1.09 04/14/22 15:01: WBC 13.10 H, Hgb 12.3 L, Hct 36.9 L, Plt Count 110 L 04/14/22 15:01: Sodium 136, Potassium 5.2 H, BUN 42 H, Creatinine 2.06 H, Glucose 317 H, Magnesium 2.0, Total Bilirubin 0.6, AST 16, ALT 23, Alkaline Phosphatase 100
--- NOTE | 2022-04-15 17:11 | EKG ---
Test Date: 2022-04-14 Test Time: 14:44:50 Flarer: MB MEASUREMENT RESULTS: Intervals: Rate: 101 CT: QRSD: 140 QT: 368 QTc: 477 [place]: P: CT: QRS: 126 T: 67 INTERPRETIVE STATEMENTS: Wide QRS rhythm with fusion complexes Right bundle branch block Abnormal ECG Compared to ECG 05/10/2020 16:19:27 Uncertain supraventricular rhythm now present Fusion complex(es) now present Right bundle-branch block now present Sinus rhythm no longer present Electronically Signed On 04-15-22 17:06:52 CDT by Chace Mcbride
--- NOTE | 2022-04-15 19:10 | P.PN ---
Subjective Date of Service: 04/15/22 Chief Complaint: MANPREET, hyperkalemia Subjective: No new changes No acute events since admission. He reports no specific complaints. He denies dysuria, but has noted urinary dribbling/incontinence at times. Review of Systems 10-point ROS is otherwise unremarkable Genitourinary: Urgency, Incontinence Physical Examination - Vital Signs Temperature: 98.0 F Blood Pressure: 162/74 Pulse: 92 Respirations: 18 Pulse Ox (%): 96 - Physical Exam General: Alert, In no apparent distress, Oriented x2 HEENT: Atraumatic, PERRLA, Mucous membr. moist/pink, EOMI, Sclerae nonicteric Neck: Supple, JVD not distended Respiratory: Normal air movement, Diminished Cardiovascular: Regular rate/rhythm, No gallops, No rubs, No murmurs, Edema (1- 2+ RLE) Gastrointestinal: Normal bowel sounds, Soft and benign, Non-distended, No tenderness, No rebound, No guarding Musculoskeletal: No clubbing, Other (s/p left BKA) Integumentary: No rashes Neurological: Normal speech, Cranial nerves 3-12 intact, Normal affect Assessment And Plan - Plan # KDIGO Stage II Acute Kidney Injury on Chronic Kidney Disease Stage III - Nephrology consulted and spoke with Dr. Sauceda - recommendations appreciated - Creatinine = 2.06 -> 2.17 (baseline creatinine ~1.4-1.6) - Urinalysis = 3+ glucose, trace blood, 2+ protein - Renal ultrasound = "no hydronephrosis or suspicious renal mass. No significant changes from the November 2021 study. " - Monitor creatinine and urine output - Renally dose medications # Suspect Acute on Chronic Decompensated Congestive Heart Failure with Unknown Ejection Fraction # SIRS Criteria (Tachycardia, Tachypnea, Leukocytosis) suspect due to above - currently no evidence of infection - Consult Cardiology - recommendations appreciated - Chest x-ray = "interstitial markings are mildly prominent. Small nodular focus in the inferior right lung is noted, nonspecific. The heart is normal in size. No displaced fractures.Followup nonemergent CT chest would be useful for assessment of the nodular density." - Ordered lactate, BCx, CT chest given SIRS criteria - if evidence of infect ion is noted, antibiotics should be started per sepsis protocol - Ordered transthoracic echocardiogram - Diuresis with IV furosemide for today - Daily weights - Strict I/O - Cardiac diet, 1.5 L fluid restriction, 2 g Na restriction # Hyperglycemia in Type II Diabetes Mellitus - Hgb A1c = 9.0 % - Correction scale insulin ordered # Ulcerative Colitis # Hypertension - Hold home losartan and mesalamine given MANPREET Charanjit Fernandez M.D.
--- NOTE | 2022-04-15 20:40 | RAD REPORT ---
EXAM DESCRIPTION: CT - Thorax Wo Con - 04/15/2022 8:31 pm CLINICAL HISTORY: leukocytosis, abnormal CXR, nodule? COMPARISON: Chest Single View dated 04/14/2022 FINDINGS: Chest Wall: No suspicious thyroid nodules or pathologic lymphadenopathy. Lungs: No acute abnormality. Pleura: No significant effusions or pneumothorax. Mediastinum/heidi: No pathologic lymphadenopathy. Pulmonary arteries/Aorta: Limited evaluation without contrast. No aortic aneurysm. Heart: No significant pericardial effusion. Normal heart size. Mild coronary artery calcifications. Upper abdomen: No acute abnormality. Bones: No acute abnormality. All CT scans are performed using dose optimization technique as appropriate and may include automated exposure control or mA/KV adjustment according to patient size. IMPRESSION: No acute findings within the chest. No suspicious pulmonary nodules. No evidence of pneu monia.
[2022-04-15] MEDS: TAMSULOSIN 0.4 MG SR CAP PO SCH (21:57)
[2022-04-16 03:32] LABS: Urine Bacteria <20 /HPF (<20); Urine Bilirubin NEGATIVE (Negative); Urine Blood 1+ (Negative); Urine Clarity Clear (Clear); Urine Color Light-Yellow (Yellow); Urine Glucose NEGATIVE (Negative); Urine Mucus Slight /HPF (None Seen); Urine Protein 1+ (Negative); Urine RBC <5 /HPF (None Seen); Urine Urobilinogen Normal (Normal); Urine pH 5.5 (5.0-7.0)
[2022-04-16 03:44] LABS: Hematocrit 31.8 % (39.6-49.0); Lymphocytes % 19.5 % (15.3-44.8); MCV 85.7 fL (80-100); MPV 10.8 fL (7.6-11.3); RBC Red Blood Cell Count 3.71 M/uL (4.33-5.43)
[2022-04-16 03:56] LABS: Albumin 2.8 g/dL (3.4-5.0); Bilirubin Total 1.1 mg/dL (0.2-1.0); Magnesium 1.5 mg/dL (1.8-2.4); Potassium 3.5 mmol/L (3.5-5.1)
[2022-04-16] MEDS: METOPROLOL XL 50 MG TAB PO SCH (06:03)
--- NOTE | 2022-04-16 06:53 | ECHO ---
HEIGHT: 5 ft 7 in WEIGHT: 257 lb 0 oz DATE OF STUDY: 04/15/[address]: Harvey Duran NP 2-DIMENSIONAL: YES M.MODE: YES DOPPLER: YES COLOR FLOW: YES TDS: YES PORTABLE: YES DEFINITY: NO BUBBLE STUDY: NO DIAGNOSIS: CHEST PAIN, LEG EDEMA CARDIAC HISTORY: CATHERIZATION: NO SURGERY: NO PROSTHETIC VALVE: NO PACEMAKER: NO MEASUREMENTS (cm) DIASTOLIC (NORMALS) SYSTOLIC (NORMALS) IVSd (0.6-1.2) LA Diam (1.9-4.0) LVEF % LVIDd (3.5-5.7) LVIDs (2.0-3.5) %FS % LVPWd (0.6-1.2) Ao Diam (2.0-3.7) 2 DIMENSIONAL ASSESSMENT: RIGHT ATRIUM: LEFT ATRIUM: RIGHT VENTRICLE: LEFT VENTRICLE: TRICUSPID VALVE: MITRAL VALVE: PULMONIC VALVE: AORTIC VALVE: PERICARDIAL EFFUSION: AORTIC ROOT: LEFT VENTRICULAR WALL MOTION: DOPPLER/COLOR FLOW: COMMENTS: TECHNICALLY DIFFICULT. GROSSLY NORMAL LEFT VENTRICULAR EJECTION FRACTION AND SIZE. NO EFFUSION. TECHNOLOGIST: MANA MORRELL
[2022-04-16 06:54] VITALS: BMI 39.8
--- NOTE | 2022-04-16 08:06 | P.DS ---
Admission Date: 04/14/22 Discharge Date: 04/16/22 Primary Care Provider: Dr. Orosco Disposition: ROUTINE DISCHARGE Discharge Condition: GOOD Reason for Admission: MANPREET, hyperkalemia Consultations: 1. Nephrology 2. Cardiology Hospital Course: - Plan DIAGNOSES: # KDIGO Stage II Acute Kidney Injury on Chronic Kidney Disease Stage III # Suspect Acute on Chronic Decompensated Congestive Heart Failure with Unknown Ejection Fraction # SIRS Criteria (Tachycardia, Tachypnea, Leukocytosis) suspect due to above - currently no evidence of infection # Hyperglycemia in Type II Diabetes Mellitus # Ulcerative Colitis # Hypertension HOSPITAL COURSE: Mr. Ranjit Connor is a pleasant 61-year-old male with a past medical history significant for chronic kidney disease stage III, chronic congestive heart failure, type 2 diabetes mellitus, ulcerative colitis, hypertension who was admitted to the [facility] on 04/14/2022 for acute kidney injury and congestive heart failure exacerbation. He was admitted to the Medicine service. Initially, he met SIRS criteria, which was thought to be secondary to his congestive heart failure exacerbation. No infection was identified during his hospital course. Urinalysis was not consistent with a urinary tract infection. CT chest revealed, "No acute findings within the chest. No suspicious pulmonary nodules. No evidence of pneumonia." Cardiology was consulted and he was treated with IV diuretics, with improvement in symptoms. Nephrology was consulted and he was evaluated by Dr. Sauceda. He believes the acute kidney injury to be multifactorial in nature and that the anasarca may have been exacerbated by the pioglitazone that he takes at home. His creatinine and urine output have remained stable during his hospitalization and Dr. Sauceda has cleared him for discharge with close outpatient follow-up. He recommended that, at discharge, he started taking losartanhydrochlorothiazide 50 mg-12.5 mg daily. He was provided diabetic education, and he was able to check his blood glucose himself under the supervision of our nursing staff. On 04/16/2022, he was seen on morning rounds and deemed medically stable for discharge. He was discharged with instructions to schedule follow-up appointments with his PCP (Dr. Orosco) in 3-5 days, with Cardiology (Dr. Mcbride) in 5-7 days, and with Nephrology (Dr. Sauceda) in 3-5 days. He was provided prescriptions for losartanhydrochlorothiazide and magnesium oxide. He and his family members were given the opportunity to ask questions and reported no further questions. Furthermore, all questions were answered to the best of my ability. Today, I personally spent 20 minutes on his case, of which greater than 50% of the time was spent in patient education, counseling, and coordination of care as described above. - Physical Exam General: Alert, In no apparent distress, Oriented x2 HEENT: Atraumatic, PERRLA, Mucous membr. moist/pink, EOMI, Sclerae nonicteric Neck: Supple, JVD not distended Respiratory: Normal air movement, Diminished Cardiovascular: Regular rate/rhythm, No gallops, No rubs, No murmurs, Edema (1- 2+ RLE) Gastrointestinal: Normal bowel sounds, Soft and benign, Non-distended, No tenderness, No rebound, No guarding Musculoskeletal: No clubbing, Other (s/p left BKA) Integumentary: No rashes Neurological: Normal speech, Cranial nerves 3-12 intact, Normal affect Vital Signs/Physical Exam: Temp Pulse Resp BP Pulse Ox 97.5 F 85 17 141/65 H 96 04/16/22 04:00 04/16/22 06:03 04/16/22 04:00 04/16/22 06:03 04/16/22 04:00 Laboratory Data at Discharge: WBC 10.40 K/uL (4.3-10.9) 04/16/22 03:04 Hgb 11.0 g/dL (13.6-17.9) L 04/16/22 03:04 Hct 31.8 % (39.6-49.0) L 04/16/22 03:04 Plt Count 97 K/uL (152-406) L 04/16/22 03:04 PT 12.0 SECONDS (9.5-12.5) 04/14/22 15:01 INR 1.09 04/14/22 15:01 Sodium 136 mmol/L (136-145) 04/16/22 03:04 Potassium 3.5 mmol/L (3.5-5.1) D 04/16/22 03:04 BUN 42 mg/dL (7-18) H 04/16/22 03:04 Creatinine 2.18 mg/dL (0.55-1.3) H 04/16/22 03:04 Glucose 157 mg/dL (74-106) H 04/16/22 03:04 Magnesium 1.5 mg/dL (1.8-2.4) L 04/16/22 03:04 Total Bilirubin 1.1 mg/dL (0.2-1.0) H 04/16/22 03:04 AST 32 U/L (15-37) 04/16/22 03:04 ALT 31 U/L (12-78) 04/16/22 03:04 Alkaline Phosphatase 91 U/L (45-117) 04/16/22 03:04 Triglycerides 100 mg/dL (<150) 04/15/22 02:57 Cholesterol 118 mg/dL (<200) 04/15/22 02:57 HDL Cholesterol 35 mg/dL (40-60) L 04/15/22 02:57 Cholesterol/HDL Ratio 3.37 04/15/22 02:57 Home Medications: Dexlansoprazole [Dexilant] 60 mg PO SEECOM 04/15/22 Insulin Detemir [Levemir] See Protocol SQ BID 04/15/22 Latanoprost/Pf [Latanoprost 0.005% Eye Drop] 1 gtt EACH EYE BEDTIME 04/15/22 Mesalamine [Apriso] 4 tab PO DAILY 04/15/22 Metoprolol Succinate [Toprol Xl*] 50 mg PO DAILY 04/15/22 Montelukast [Singulair*] 10 mg PO DAILY 04/15/22 Tamsulosin [Flomax*] 0.4 mg PO DAILY 04/15/22 Lancets/Blood Glucose Strips [Fora [id number] Strp-Lnct] 1 each TID #100 unit 04/16/22 Lancets/Blood Glucose Strips [Gojji Lancet 30G-Gluc Tst Strp] 1 each TID #100 strip 04/16/22 Lancets/Blood Glucose Strips [Pogo Automatic Test Cartridge] 1 each SEECOM #1 unit 04/16/22 Losartan/Hydrochlorothiazide [Losartan-Hctz 50-12.5 mg Tab] 1 tab PO DAILY #30 tab 04/16/22 Magnesium Oxide [Mag 0X*] 400 mg PO DAILY #30 tab 04/16/22 New Medications: Lancets/Blood Glucose Strips [Fora [id number] Strp-Lnct] 1 each MC TID #100 unit Lancets/Blood Glucose Strips [Gojji Lancet 30G-Gluc Tst Strp] 1 each TID #100 strip Losartan/Hydrochlorothiazide [Losartan-Hctz 50-12.5 mg Tab] 1 tab PO DAILY #30 tab Magnesium Oxide [Mag 0X*] 400 mg PO DAILY #30 tab Lancets/Blood Glucose Strips [Pogo Automatic Test Cartridge] 1 each SEECOM #1 unit Physician Discharge Instructions: 1. Please schedule a follow-up appointment with your PCP (Dr. Orosco) in 3-5 days 2. Please schedule a follow-up appointment with Nephrology (Dr. Sauceda) in 3-5 days Please stop taking Pioglitazone (Actos) as this may worsen your swelling Diet: Renal Activity: Ad blanca Followup: Marlon Sauceda [ACTIVE - CAN ADMIT] - Kwesi WEBSTER,Aracely Sotelo DO [Primary Care Provider] - Chace Mcbride MD [ACTIVE - CAN ADMIT] - Time spent managing pt's care (in minutes): 20
[2022-04-16 08:51] VITALS: BP 118/58; TEMP 97
[2022-04-16] MEDS: FUROSEMIDE 20 MG/ 2ML VIAL IV SCH (09:06)
[2022-04-16] MEDS: HEPARIN 5000 UNIT/ML 1 ML VIAL SQ SCH (09:06)
[2022-04-16] MEDS: INSULIN -REGULAR HUMAN 50 UNIT/0.5 ML ML SQ SCH ×2 (09:06→11:43)
--- NOTE | 2022-04-16 10:50 | P.PN ---
Nephrology note (S) Pt feels better overall, no CP or dyspnea, discharge plan discussed (O) Vitals reviewed in the EMR PE: Gen: Appears ill, NAD HEENT: Head atraumatic, sclera anicteric, LFNC Resp: b/l air entry, no rhonchi CVS: RRR, no loud murmurs Abd: Soft, obese, NT Ext: 2+ edema of Rt leg, Lt BKA Derm: No rashes Neuro: Awake, alert, oriented, no myoclonus or tremors observed Labs reviewed in the EMR 1. Abnormal results of kidney function studies 2. Stage II MANPREET 3. Underlying CKD III unspecified 4. Hyperkalemia 5. Proteinuria, unspecified 6. 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 Leukocytosis -Cr level higher today than level checked as an OP Mon which was ~ 1.8 and levels earlier in the year ranged from ~ 1.3-1.6 mg/dl. Sub-acute worsening of renal function may be multifactorial, no obstructive uropathy noted on u/s although pt reports some dribbling/reduced stream of urine at times. -UA does not show any active sediment other than proteinuria, UACR done recently revealed macroalbumiuria. -ACEi on hold but will need to resume as OP once renal function stable for anti proteinuric effects, may place on concurrent scheduled cation exchanger to prev ent hyperkalemia issues. Will employ lower dose of Losartan initially coupled with HCTZ at 50/12.5 mg qd -Needs optimized DM control and diabetic education, was not check FSBG at home, resumed basal Insulin. Educate potentially on bolus insulin. As OP will explore use of SGLT2i and GLP-1 agonist additional therapies -Will seek to optimize BP control as OP Marlon Sauceda MD, SINAN
[2022-04-17] MEDS ORDERED: LOSARTAN/HCTZ 50-12.5 PO SCH (09:00)
[2022-04-17] MEDS ORDERED: MAGNESIUM OXIDE 400 MG TAB PO SCH (10:00)
--- NOTE | 2022-04-19 18:25 | CON ---
Date of Consultation: 04/15/2022 Reason For Consultation: Atypical chest pain. History Of Present Illness: Mr. Connor is a patient, who has had diabetes, hypertension, ulcerative colitis. He is status post left BKA. Came in with nonspecific symptoms including atypical chest alfredo n. He had some abnormal lab results by his primary care. He came in with shaking. No nausea, vomit ing, diaphoresis, PND, orthopnea, pedal edema, palpitations, or syncope. He has already ruled out fo r an NC. Past Medical History: As stated above. Allergies: NONE. Medications: Include aspirin, Dexilant, insulin, metoprolol, Singulair, tamsulosin, and he also take s pioglitazone. Review of Systems: Negative. Social History: Negative. Family History: Negative. Physical Examination: Vital Signs: His blood pressure is 162/74, pulse is 92, afebrile, sinus rhythm. HEENT: Negative. Neck: Supple with no bruit. Chest: Clear to auscultation and percussion. Cardiac: Revealed a regular rhythm and rate. No murmurs, gallops, or rubs. Abdomen: Benign. Extremities: Revealed no clubbing, cyanosis, or edema. Diagnostic Data: Creatinine was 2.17. White count is 17,000, hemoglobin is 10.4. Glucose was 133. BNP was 1065. Echocardiogram was perfectly normal. Chest x-ray showed nodular density in the infer ior right lung, CT was recommended. Chest CT was negative. Renal ultrasound was negative. Impression And Plan: This is a patient with nonspecific symptoms check atypical chest pain, myocardi al infarction ruled out. Echocardiogram is normal. Chest x-ray is normal. EKG showed sinus rhythm, wide-complex right bundle-branch block. He has a left below-knee amputation, has some kind of infec tion causing his white count to be so elevated. His kidney function needs to be evaluated and follow ed by Nephrology down the road and his primary care physician. I agree with his present regimen. Lo w-dose Lasix was given. The patient is feeling better. I am comfortable with him going home. I viraj l make plans for him to have an outpatient Lexiscan and see me because of his very high risk factor p rofile. BUBBA/RENO Voice ID: [id number] Report ID: [id number]
== END 2022-04-16 12:45 | disposition home or self-care (01) ==
LOC: ER 14:15 → 4TH 19:03 → INTOOBSV 19:03
PROVIDERS: ADMIT Internal Medicine; ATTEND Internal Medicine
DX: N17.9 Acute kidney failure, unspecified (principal); I12.9 Hypertensive chronic kidney disease with stage 1 through stage 4 chronic kidney disease, or unspecified chronic kidney disease; N18.30 Chronic kidney disease, stage 3 unspecified; R60.0 Localized edema; E87.5 Hyperkalemia; K51.90 Ulcerative colitis, unspecified, without complications; R00.0 Tachycardia, unspecified; D72.829 Elevated white blood cell count, unspecified; R06.82 Tachypnea, not elsewhere classified; E11.65 Type 2 diabetes mellitus with hyperglycemia; Z89.512 Acquired absence of left leg below knee; Z79.4 Long term (current) use of insulin; I50.9 Heart failure, unspecified
CPT/HCPCS: 93005; 93306; 87040 ×2; 87088; 85025 ×3; 81001; 87086; 80048; 36415 ×2; 83735 ×3; 85610; 80061; 82947 ×8; 80076; 83605; 84443; 81003; 83036; 84484 ×3; 84439; 80053 ×2; 84145; 83880; 71250; 71045; 76770; 96375; 96372; 96374; 99285; 87811; J1940 ×5; J1815 ×4; J1644 ×4; J7030; G0378 ×3

== ENCOUNTER 2024-05-30 10:34 | Inpatient (IN) | payer OTHER ==
[2024-05-30] MEDS ORDERED: VANCOMYCIN 1 GM/VIAL ONE (11:20)
[2024-05-30] MEDS ORDERED: CEFEPIME 2 GM VIAL ONE (11:20)
[2024-05-30] MEDS ORDERED: NA CHLORIDE 0.9% 250 ML ONE (11:21)
[2024-05-30] MEDS ORDERED: NA CHLORIDE 0.9% 100 ML ONE ×2 (11:21→13:52)
[2024-05-30 11:55] LABS: Absolute Basophils 0.1 K/uL (0-0.5); Absolute Lymphocytes (CBC) 1.4 K/uL (0.7-4.9); Absolute Monocytes 1.4 K/uL (0.1-1.3); Basophils % 0.4 % (0-1.3); Eosinophils % 0.2 % (0-4.4); Hematocrit 37.7 % (39.6-49.0); Hemoglobin 12.2 g/dL (13.6-17.9); Lymphocytes % 8.7 % (15.3-44.8); MCH 27.4 pg (27.0-35.0); MCHC 32.3 g/dL (32.0-36.0); MCV 84.7 fL (80-100); MPV 10.2 fL (7.6-11.3); Monocytes % 8.7 % (3.3-12.3); Platelets 144 thou/uL (152-406); RBC Red Blood Cell Count 4.45 M/uL (4.33-5.43); Red Cell Distribution Width 15.6 % (12.1-15.2)
--- NOTE | 2024-05-30 11:58 | RAD REPORT ---
Exam:Foot Right 3 View CLINICAL HISTORY: Right foot pain FINDINGS: No fracture seen. Subluxation second, third and fourth proximal phalanges. Lucency with a sclerotic border proximal aspect of the fifth metatarsal appears chronic. No acute bony destruction seen. Vascular calcifications noted. Large plantar calcaneal spur
[2024-05-30 11:59] LABS: PT Prothrombin Time 13.7 SECONDS (9.4-12.5); PTT, Activated Partial Thromb 33.1 SECONDS (24.3-36.9); Protime INR 1.23
[2024-05-30 12:07] LABS: Albumin 2.8 g/dL (3.4-5.0); Albumin/Globulin Ratio 0.6 (1.1-1.8); Anion Gap 10.2 mEq/L (5.0-15.0); Bilirubin Total 1.3 mg/dL (0.2-1.0); Globulin 4.8 g/dL (2.3-3.5); Potassium 4.2 mEq/L (3.5-5.1); Protein, Total 7.6 g/dL (6.4-8.2)
[2024-05-30] MEDS ORDERED: NA CHLORIDE 0.9% 500 ML ONE (12:44)
--- NOTE | 2024-05-30 12:44 | EDPHYS ---
Physician Documentation [facility] Name: Ranjit Connor Age: 63 yrs Sex: Male : 1960 Arrival Date: 05/30/2024 Time: 10:34 Bed 18 Private MD: ED Physician Donald Gutierres HPI: 05/30 11:37 This 63 yrs old Male presents to ER via Wheelchair with complaints of Foot rt sores. 11:37 Patient presents to the ED with wound to the right foot starting 5 days ago. Patient rt has a discoloration of the fourth digit, drainage from that area. Start having proximal erythema, streaking. Was seen by PCP, sent to ED for further evaluation. Symptoms are moderate in severity, no other aggravating or alleviating factors.. Historical: - Allergies: : No Known Allergies; iw - PMHx: :54 Diabetes - IDDM; Hypertension; Glaucoma; ulcerative colitis; iw - PSHx: :54 BKA - left; iw - Immunization history:: Adult Immunizations not up to date. - Infectious Disease History:: Denies. - Social history:: Smoking status: Patient denies any tobacco usage or history of. - Family history:: not pertinent. ROS: 11:37 Constitutional: Negative for fever, chills, and weight loss, Cardiovascular: Negative rt for chest pain, palpitations, and edema, Respiratory: Negative for shortness of breath, cough, wheezing, and pleuritic chest pain, Abdomen/GI: Negative for abdominal pain, nausea, vomiting, diarrhea, and constipation, 11:37 MS/extremity: Positive for erythema, Wound, Exam: 11:37 Constitutional: This is a well developed, well nourished patient who is awake, alert, rt and in no acute distress. Head/Face: Normocephalic, atraumatic. Chest/axilla: Normal chest wall appearance and motion. Nontender with no deformity. No lesions are appreciated. Cardiovascular: Regular rate and rhythm with a normal S1 and S2. No gallops, murmurs, or rubs. Normal PMI, no JVD. No pulse deficits. Respiratory: Lungs have equal breath sounds bilaterally, clear to auscultation and percussion. No rales, rhonchi or wheezes noted. No increased work of breathing, no retractions or nasal flaring. Abdomen/GI: Soft, non-tender, with normal bowel sounds. No distension or tympany. No guarding or rebound. No evidence of tenderness throughout. 11:37 ECG was reviewed by the Attending Physician. 11:37 Musculoskeletal/extremity: Right fourth toe is dusky, there is proximal erythema with warmth, scant amount malodorous drainage. Vital Signs: 10:52 BP 128 / 71; Pulse 107; Resp 16; Temp 97.8; Pulse Ox 100% ; Weight 84.82 kg; Height 5 iw ft. 7 in. ; Pain 10/10; 11:30 BP 121 / 67; Pulse 102; Resp 18; Pulse Ox 99% on R/A; db 10:52 Body Mass Index 29.29 (84.82 kg, 170.18 cm) iw 10:52 Pain Scale: Adult iw MDM: 10:58 Medical Screening Exam initiated rt 12:44 Differential Diagnosis Cellulitis, osteomyelitis, gangrene. Data reviewed: vital signs, rt nurses notes, lab test result(s), EKG, radiologic studies. Consideration of Admission/Observation Patient was admitted/placed on observation. Management of patient was discussed with the following: Filling Winder: Discussed with patient's surgeon, will operate tomorrow. Independent interpretation of the following test(s) in the Emergency Department X-Ray: My interpretation is No osteomyelitis seen on my interpretation of x-ray images. Care significantly affected by the following chronic conditions: Diabetes. Counseling: I had a detailed discussion with the patient and/or guardian regarding the historical points, exam findings, and any diagnostic results supporting the discharge/admit diagnosis, lab results, radiology results, the need for further work-up and treatment in the hospital. Response to treatment: There is no appreciated change of the patient's symptoms at this time. 05/30 11:08 Order name: Blood Culture Adult (2) rt 05/30 11:08 Order name: CBC with Diff; Complete Time: 12:00 rt 05/30 11:08 Order name: CMP; Complete Time: 12:18 rt 05/30 11:08 Order name: Lactate w/ 2H reflex if indic.; Complete Time: 12:18 rt 05/30 11:08 Order name: Protime (+inr); Complete Time: 12:00 rt 05/30 11:08 Order name: Ptt, Activated; Complete Time: 12:00 rt 05/30 13:08 Order name: CBC with Automated Diff EDMS 05/30 13:08 Order name: CBC with Automated Diff EDMS 05/30 13:08 Order name: CBC with Automated Diff EDMS 05/30 13:08 Order name: CBC with Automated Diff EDMS 05/30 13:08 Order name: Comprehensive Metabolic Panel EDMS 05/30 13:08 Order name: Comprehensive Metabolic Panel EDMS 05/30 13:08 Order name: Comprehensive Metabolic Panel EDMS 05/30 13:08 Order name: Comprehensive Metabolic Panel EDMS 05/30 13:08 Order name: Lipid Profile EDMS 05/30 13:08 Order name: Lipid Profile EDMS 05/30 13:08 Order name: Magnesium EDMS 05/30 13:08 Order name: Magnesium EDMS 05/30 13:08 Order name: Magnesium EDMS 05/30 13:08 Order name: Magnesium EDMS 05/30 13:08 Order name: Troponin High Sensitivity EDMS 05/30 13:08 Order name: Troponin High Sensitivity EDMS 05/30 13:08 Order name: Troponin High Sensitivity EDMS 05/30 13:21 Order name: Vancomycin Level Trough EDMS 05/30 11:08 Order name: Foot Right 3 View XRAY; Complete Time: 12:00 rt 05/30 16:13 Order name: US; Complete Time: 16:13 EDMS 05/30 13:08 Order name: CONS Physician Consult EDMS 05/30 11:08 Order name: Cardiac monitoring; Complete Time: 11:52 rt 05/30 11:08 Order name: EKG - Nurse/Tech; Complete Time: 11:52 rt 05/30 11:08 Order name: IV Saline Lock - Large Bore; Complete Time: 11:57 rt 05/30 11:08 Order name: Labs collected and sent; Complete Time: 11:52 rt 05/30 11:08 Order name: O2 Per Protocol; Complete Time: 11:52 rt 05/30 11:08 Order name: O2 Sat Monitoring; Complete Time: 11:52 rt 05/30 11:08 Order name: Vital Signs; Complete Time: 11:52 rt EC:37 Rate is 106 beats/min. Rhythm is regular, Sinus tachycardia with No ectopy. Right axis rt deviation noted. ME interval is normal. QRS interval is normal. QT interval is normal. No Q waves. T waves are Normal. No ST changes noted. Interpreted by me. Administered Medications: 12:41 Discontinued: cefepime2 grams IVPB at 200 ml/hr once over 30 mins; (mix in NS 100 mL) ar6 14:51 Discontinued: vancomycin1 grams IVPB once over 2 hrs ar6 14:52 Discontinued: ns 0.9% 500 ml IV at 500 ml once; to be given as a bolus over 60 minutes ar6 11:48 Drug: Cefepime IVPB 2 grams IVPB at 200 ml/hr once over 30 mins; (mix in NS 100 mL) db Route: IVPB; Rate: 200 ml/hr; Infused Over: 30 mins; Site: right antecubital; 12:18 Follow up: Response: No adverse reaction; IV Status: Completed infusion; IV Intake: ar6 100ml 12:30 Drug: vancoMYCIN IVPB 1 grams IVPB once over 2 hrs Route: IVPB; Infused Over: 2 hrs; ar6 Site: right antecubital; 14:51 Follow up: Response: No adverse reaction; IV Status: Completed infusion ar6 12:47 Drug: NS 0.9% IV 500 ml IV at 500 ml once; to be given as a bolus over 60 minutes ar6 Route: IV; Rate: 500 ml; Site: right antecubital; 14:52 Follow up: Response: No adverse reaction; IV Status: Completed infusion; IV Intake: ar6 500ml Disposition Summary: 05/30/24 12:43 Hospitalization Ordered Notes: Hospitalization Status: Inpatient Admission rt Provider: Timur Bustamante rt Location: Telemetry/[facility] (Inpatient) rt Condition: Fair rt Problem: new rt Symptoms: are unchanged rt Bed/Room Type: Standard rt Room Assignment: 219(05/30/24 13:12) bd Diagnosis - Gangrene to right fourth toe rt - Sepsis rt Forms: - Medication Reconciliation Form rt - SBAR form rt - Leadership Thank You Letter rt Critical care time excluding procedures: 12:44 Critical care time: Bedside Care: 30 minutes, Consultation: 5 minutes. Total time: 35 rt minutes Signatures: Dispatcher [employer] EDMS Mami Fenton Irene, RN RN iw Marcelle Carballo RN RN db Donald Gutierres MD MD rt Natalya Henriquez RN RN ar6 Corrections: (The following items were deleted from the chart) 11:08 11:08 BLOOD CULTURE*+BA.LAB.BRZ ordered. EDMS EDMS : 11:08 CBC+H.LAB.BRZ ordered. EDMS EDMS : 11:08 COMPREHENSIVE METABOLIC PANEL+C.LAB.BRZ ordered. EDMS EDMS : 11:08 LACTATE+C.LAB.BRZ ordered. EDMS EDMS : 11:08 PROTIME (+INR)+COAG.LAB.BRZ ordered. EDMS EDMS : 11:08 PTT, ACTIVATED+COAG.LAB.BRZ ordered. EDMS EDMS : 11:08 Foot Right 3 View+RAD.RAD.BRZ ordered. EDMS EDMS 13:12 12:43 rt bd
--- NOTE | 2024-05-30 12:44 | ER ---
Nurse's Notes [facility] Name: Ranjit Connor Age: 63 yrs Sex: Male : 1960 Arrival Date: 05/30/2024 Time: 10:34 Bed 18 Private MD: Diagnosis: Gangrene to right fourth toe;Sepsis Presentation: 05/30 10:52 Chief complaint: Patient states: wound to right 4th and fifth toes for about 5 days, is iw diabetic. Coronavirus screen: At this time, the client does not indicate any symptoms associated with coronavirus-19. Ebola Screen: No symptoms or risks identified at this time. Initial Sepsis Screen: Does the patient meet any 2 criteria? HR > 90 bpm. Does the patient have a suspected source of infection? No. Patient's initial sepsis screen is negative. Risk Assessment: Do you want to hurt yourself or someone else? Patient reports no desire to harm self or others. Onset of symptoms was May 25, 2024. 10:52 Method Of Arrival: Wheelchair iw 10:52 Acuity: ALEXANDER 3 iw Historical: - Allergies: 10:54 No Known Allergies; iw - PMHx: 10:54 Diabetes - IDDM; Hypertension; Glaucoma; ulcerative colitis; iw - PSHx: 10:54 BKA - left; iw - Immunization history:: Adult Immunizations not up to date. - Infectious Disease History:: Denies. - Social history:: Smoking status: Patient denies any tobacco usage or history of. - Family history:: not pertinent. Screenin:56 [facility] ED Fall Risk Assessment (Adult) History of falling in the last 3 months, db including since admission No falls in past 3 months (0 pts) Confusion or Disorientation No (0 pts) Intoxicated or Sedated No (0 pts) Impaired Gait Yes (1 pt) Mobility Assist Device Used Yes (1 pt) Altered Elimination No (0 pt) Score/Fall Risk Level 0 - 2 = Low Risk Oriented to surroundings, Maintained a safe environment. Abuse screen: Denies threats or abuse. Denies injuries from another. Nutritional screening: No deficits noted. Tuberculosis screening: No symptoms or risk factors identified. Assessment: 11:27 Reassessment: Patient appears in no apparent distress at this time. Patient and/or db family updated on plan of care and expected duration. Pain level reassessed. Patient is alert, oriented x 3, equal unlabored respirations, skin warm/dry/pink. General: Appears in no apparent distress. comfortable, Behavior is calm, cooperative. Pain: Complains of pain in left foot. Neuro: Level of Consciousness is awake, alert, obeys commands, Oriented to person, place, time, situation. Respiratory: Airway is patent Respiratory effort is even, unlabored, Respiratory pattern is regular, symmetrical. Derm: Skin is black, Wound noted right foot. 11:57 Reassessment: DR. DE PAZ AT BEDSIDE. db 13:43 Reassessment: per pharmacy; add additional vancomycin to order. ar6 14:50 Reassessment: pt to go up at 1519. ar6 Vital Signs: 10:52 BP 128 / 71; Pulse 107; Resp 16; Temp 97.8; Pulse Ox 100% ; Weight 84.82 kg; Height 5 iw ft. 7 in. ; Pain 10/10; 11:30 BP 121 / 67; Pulse 102; Resp 18; Pulse Ox 99% on R/A; db 10:52 Body Mass Index 29.29 (84.82 kg, 170.18 cm) iw 10:52 Pain Scale: Adult iw ED Course: 10:39 Patient arrived in ED. mr 10:40 Donald Gutierres MD is Attending Physician. rt 10:54 Triage completed. iw 10:55 Arm band placed on. iw 10:57 Marcelle Carballo, RN is Primary Nurse. db 11:27 First set of blood cultures drawn by me. db 11:27 EKG done, reviewed by Donald Gutierres MD. db 11:38 Initial lab(s) drawn, by me, sent to lab. Inserted saline lock: 20 gauge in right db antecubital area, using aseptic technique. Blood collected. Flushed with 10 mL NS. 11:38 Second set of blood cultures drawn by me. db 11:50 Foot Right 3 View XRAY In Process Unspecified. EDMS 11:56 Patient has correct armband on for positive identification. Bed in low position. Call db light in reach. Side rails up X 1. Pulse ox on. NIBP on. Warm blanket given. 12:24 Primary Nurse role handed off by Marcelle Carballo, PERRY bd 12:40 Natalya Henriquez RN is Primary Nurse. ar6 12:43 Timur Bustamante MD is Hospitalizing Provider. rt Administered Medications: 12:41 Discontinued: cefepime2 grams IVPB at 200 ml/hr once over 30 mins; (mix in NS 100 mL) ar6 14:51 Discontinued: vancomycin1 grams IVPB once over 2 hrs ar6 14:52 Discontinued: ns 0.9% 500 ml IV at 500 ml once; to be given as a bolus over 60 minutes ar6 11:48 Drug: Cefepime IVPB 2 grams IVPB at 200 ml/hr once over 30 mins; (mix in NS 100 mL) db Route: IVPB; Rate: 200 ml/hr; Infused Over: 30 mins; Site: right antecubital; 12:18 Follow up: Response: No adverse reaction; IV Status: Completed infusion; IV Intake: ar6 100ml 12:30 Drug: vancoMYCIN IVPB 1 grams IVPB once over 2 hrs Route: IVPB; Infused Over: 2 hrs; ar6 Site: right antecubital; 14:51 Follow up: Response: No adverse reaction; IV Status: Completed infusion ar6 12:47 Drug: NS 0.9% IV 500 ml IV at 500 ml once; to be given as a bolus over 60 minutes ar6 Route: IV; Rate: 500 ml; Site: right antecubital; 14:52 Follow up: Response: No adverse reaction; IV Status: Completed infusion; IV Intake: ar6 500ml Intake: 12:18 IV: 100ml; Total: 100ml. ar6 14:52 IV: 500ml; Total: 600ml. ar6 Outcome: 12:43 Decision to Hospitalize by Provider. rt 16:27 Patient left the ED. ar6 Signatures: Dispatcher [employer] EDMS Mami Fenton Mary, Reg Reg mr Gale Duran, PERRY AMADOR iw Marcelle Carballo RN RN db Donald Gutierres MD MD rt Natalya Henriquez RN RN ar6 Corrections: (The following items were deleted from the chart) 10:55 10:52 Pulse 107bpm; Resp 16bpm; Pulse Ox 100%; Temp 97.8F; 84.82 kg; Height 5 ft. 7 iw in.; BMI: 29.2; Pain 10, Adult; iw
--- NOTE | 2024-05-30 12:57 | CON ---
Date of Consultation: 05/30/2024 Reason For Service: Gangrene of the right fourth toe with cellulitis of the foot. History Of Present Illness: This is the case of a 63-year-old patient, known by us in the past due t o history of peripheral vascular disease. Unfortunately, he also had amputation of the opposite leg, now comes with few-day history of discoloration of the right fourth toe. There is also erythema of the right foot. He does not recall any trauma to that area. There is no dysuria, hematuria, hematoc hezia, melena. Denies any recent traveling out of the country. Denies any family member sick at [facility]. Past Medical History: Peripheral vascular disease, hypertension, heart disease. Social History: He does not smoke. He does not drink alcohol. Medications: Reviewed. Past Surgical History: Include left below-knee amputations, multiple right leg wounds in the past, a nd also heart stent. Review of Systems: Ten points otherwise unremarkable. Physical Examination: General: The patient is awake, alert, in no distress. HEENT: Pupils are equal and reactive. Anicteric. No jaundice. Neck: Supple. Chest: Bilateral breath sounds. Heart: S1, S2. Abdomen: Soft and depressible. No tenderness. Extremities: Over the right foot area, the patient has diminished pulses, dorsal, chronic, and on th e right fourth toe, the patient has a gangrenous toe with wet component on it. Over the dorsum of th e foot, the patient has erythema associated with cellulitis. X-ray shows no fracture seen. Assessment: This is a 63-year-old patient with gangrene of the fourth toe and cellulitis of the foot . The patient was explained the need for amputation of the fourth toe. I will not leave an open wou nd in that area and will require wound care. We still encouraged him antibiotics and control diabete s. We also advised him vascular workup while we are taking care of the wound that this amputation wi ll leave since we might have to leave it close by secondary intention. Even with little bit of infec tion and still healing process to happen, I need to control diabetes, nutrition, offloading, diabetic shoes, and also check his circulation. He understands. The patient was booked in OR. PEE/RENO Voice ID: [id number] Report ID: [id number]
[2024-05-30] MEDS ORDERED: ACETAMINOPHEN 500 MG TAB PO PRN (12:58)
[2024-05-30] MEDS: VANCOMYCIN 500 MG in NA CHLORIDE 0.9% 100 ML IVPB SCH (13:30)
[2024-05-30] MEDS ORDERED: HYDRALAZINE HCL 10 MG TABLET PO PRN (13:36)
[2024-05-30] MEDS ORDERED: SODIUM CHLORIDE 0.9% 10ML INJ IV PRN (13:43)
--- NOTE | 2024-05-30 13:44 | P.HP ---
Certification for Inpatient Patient admitted to: Inpatient With expected LOS: >2 Midnights <AryanKerri Khan - Last Filed: 05/30/24 16:52> Patient History Date of Service: 05/30/24 Reason for admission: Diabetic ulcer/necrotic fourth toe History of Present Illness: Mr. Connor is a 63-year-old male with a past medical history of diabetes, hypertension, CAD, CKD III, PAD, ulcerative colitis, and GERD. He has been seeing Dr. Parrish for a right foot wound for several weeks. On evaluation today his right lower leg was tense, warm, erythematous, with a fourth toe necrosis. He was directed to the ED to be admitted for surgical debridement/amputation tomorrow. Vital signs stable, afebrile, on assessment patient is in no acute distress. Left BKA well-healed right leg from knee to toes with tight edema, erythema, fourth toe with necrosis. Will obtain arterial ultrasound prior to admission. Labs CBC shows a white count of 15.8 with neutrophils of 82%, H/H 12.2/37.7, creatinine 2.38 with a GFR of 30, blood cultures obtained, lactate 1.2 Imaging "No fracture seen. Subluxation second, third, and fourth proximal phalanges. Lucency with sclerotic border proximal aspect of the fifth metatarsal appears chronic. No acute bony destruction seen. Vascular calcifications noted. Large plantar calcaneal spur." Vancomycin and cefepime started in the ED - Past Medical/Surgical History Diabetic: Yes -: Diabetes mellitus type 2insulin-dependent -: CKD 3 -: Ulcerative colitis -: Hypertension -: Left BKA -: cardiac stents Psychosocial/ Personal History: Patient is disabled, lives at home with his daughter - Family History Mother -: Heart disease, Diabetes Father -: Heart disease - Social History Smoking Status: Former smoker Alcohol use: No CD- Drugs: No Caffeine use: Yes Place of Residence: Home <Kerri Baeza - Last Filed: 05/30/24 16:52> Date of Service: 06/02/24 <Timur Bustamante - Last Filed: 06/02/24 19:43> Allergies No Known Allergies Allergy (Verified 04/08/23 06:05) Home Medications: Insulin Detemir [Levemir] See Protocol SQ BID 04/15/22 Metoprolol Succinate [Toprol Xl*] 100 mg PO DAILY 04/15/22 Montelukast [Singulair*] 10 mg PO DAILY 04/15/22 Tamsulosin [Flomax*] 0.4 mg PO DAILY 04/15/22 Losartan/Hydrochlorothiazide [Losartan-Hctz 50-12.5 mg Tab] 1 tab PO DAILY #30 tab 04/16/22 Aspirin Chewable [Aspirin Chewable*] 81 mg PO DAILY 04/06/23 Clopidogrel Bisulfate [Plavix] 75 mg PO DAILY 04/06/23 Empagliflozin [Jardiance] 25 mg PO DAILY 04/06/23 Rosuvastatin Calcium 5 mg PO DAILY 04/06/23 Insulin Glargine,Hum.rec.anlog [Lantus] unit SQ 05/30/24 Isosorbide Mononitrate [Isosorbide Mononitrate ER] 30 mg PO DAILY 05/30/24 Review of Systems 10-point ROS is otherwise unremarkable General: As per HPI Eyes: Unremarkable ENT: Unremarkable Respiratory: Unremarkable Cardiovascular: Unremarkable Gastrointestinal: Unremarkable Genitourinary: Unremarkable Musculoskeletal: Foot Pain Integumentary: As per HPI Neurological: Unremarkable Lymphatics: Unremarkable <Kerri Baeza Bill - Last Filed: 05/30/24 16:52> Physical Examination - Physical Exam General: Alert, In no apparent distress, Oriented x3 HEENT: Atraumatic, Normocephalic Neck: Supple Respiratory: Normal air movement Cardiovascular: Regular rate/rhythm, Normal S1 S2 Capillary refill: <2 Seconds Gastrointestinal: Soft and benign, Non-distended Musculoskeletal: Other (Tenderness to right dorsal foot, scant pulses, left BKA) Integumentary: Erythema, Warmth, Other (Fourth toe with dark blue cyanotic coloration) Neurological: Normal speech, Normal tone, Normal affect Lymphatics: No axilla or inguinal lymphadenopathy External genitalia: Deferred Rectal: Deferred - Studies Laboratory Data (last 24 hrs) 05/30/24 05/30/24 05/30/24 11:38 11:38 11:38 WBC 15.80 H Hgb 12.2 L Hct 37.7 L Plt Count 144 L PT 13.7 H INR 1.23 APTT 33.1 Sodium 134 L Potassium 4.2 BUN 26 H Creatinine 2.38 H Glucose 70 L Total Bilirubin 1.3 H AST 45 H ALT 42 Alkaline Phosphatase 148 H <Kerri Baeza - Last Filed: 05/30/24 16:52> - Studies Microbiology Data (last 24 hrs): 05/30/24 11:38 Blood - Blood Aerobic Blood Culture - Final Staph Aureus 05/30/24 11:38 Blood - Blood Blood Culture Gram Stain - Final 05/30/24 11:38 Blood - Blood Anaerobic Blood Culture - Final Staph Aureus 05/30/24 11:38 Blood - Blood Gram Stain - Final 05/30/24 11:27 Blood - Blood Aerobic Blood Culture - Final Staph Aureus 05/30/24 11:27 Blood - Blood Blood Culture Gram Stain - Final 05/30/24 11:27 Blood - Blood Anaerobic Blood Culture - Final Staph Aureus 05/30/24 11:27 Blood - Blood Gram Stain - Final <Timur Bustamante - Last Filed: 06/02/24 19:43> Assessment and Plan - Plan Necrosis fourth left toe Arterial ultrasound right lower extremity (within normal, mild PAD) Consult Dr. Parrish Continue IV antibiotics Pain control Heparin 5000 subcu every 8h NPO p MN Diabetes Monitor and trend SSI coverage ADA diet CKD Vancomycin levels Monitor creatinine closely Avoid nephrotoxic substances Consult Dr. Sauceda CAD EKG Serial troponins Metoprolol 100 mg p.o. daily Isosorbide 30 mg p.o. daily Plavix 75 mg p.o. daily Ulcerative colitis/GERD Mesalamine Protonix - Advance Directives Does patient have a Living Will: No Does patient have a Durable POA for Healthcare: No - Code Status/Comfort Care Code Status Assessed: Yes (Full) <Kerri Baeza - Last Filed: 05/30/24 16:52> Date of Service: 05/30/24 Patient was seen and examined. Events of the last 24 hours have been noted. Spoke with with ANG regarding patient's clinical picture after evaluating and examining the patient independently. I performed a substantial part of the MDM during this patient's care today. I personally made or approved the documented management plan and acknowledge its risk of complications. I agree with the findings and documentation provided in the ANG's notes. Patient doing better. Continue with antibiotic therapy and continue with surgical intervention. PT eval <Timur Bustamante - Last Filed: 06/02/24 19:43>
[2024-05-30] MEDS ORDERED: VANCOMYCIN 500 MG/VIAL ONE (13:52)
[2024-05-30] MEDS: MESALAMINE 400 MG CAPSULE.DR PO SCH ×2 (14:00→17:54)
--- NOTE | 2024-05-30 16:12 | RAD REPORT ---
EXAMINATION: US Lower Extremity Artery [employer] CLINICAL INDICATION: Male, 63 years old. [facility] right lower leg right lower ext TECHNIQUE: Arterial duplex ultrasound was performed of the Right lower extremity with real-time, colo r-flow, and spectral wave Doppler evaluation. COMPARISON: No prior exam. FINDINGS: Mild plaque throughout the evaluated arterial system. Triphasic waveforms are seen throughout the ev aluated Right lower extremity arterial system, to the level of the dorsalis pedis artery, with the exception of the SPECK DYER which shows biphasic waveforms. No other suspicious findings. IMPRESSION: Mild peripheral vascular disease.
[2024-05-30] MEDS: HEPARIN 5000 UNIT/ML 1 ML VIAL SQ SCH (17:54)
[2024-05-30] MEDS: INSULIN REGULAR (HUMAN) 100 UNIT/ML SQ SCH (18:00)
[2024-05-30] MEDS: FENTANYL CITR 100 MCG/2 ML IV PRN (20:19)
[2024-05-30] MEDS: MONTELUKAST 10 MG TAB PO SCH (20:19)
[2024-05-30] MEDS: PANTOPRAZOLE 40 MG INJ IVP SCH (20:19)
[2024-05-30] MEDS: CEFEPIME 1 GM in NA CHLORIDE 0.9% 100 ML IV SCH (20:19)
[2024-05-30] MEDS: ROSUVASTATIN 5 MG TAB PO SCH (20:19)
[2024-05-31 04:49] LABS: Absolute Basophils 0.1 K/uL (0-0.5); Absolute Eosinophils 0.1 K/uL (0-0.5); Absolute Lymphocytes (CBC) 1.1 K/uL (0.7-4.9); Absolute Monocytes 1.2 K/uL (0.1-1.3); Absolute Neutrophil 10.1 K/uL (1.8-8.0); Basophils % 0.6 % (0-1.3); Eosinophils % 0.5 % (0-4.4); Hematocrit 32.1 % (39.6-49.0); Hemoglobin 10.6 g/dL (13.6-17.9); Lymphocytes % 9.1 % (15.3-44.8); MCH 27.9 pg (27.0-35.0); MCV 84.4 fL (80-100); Monocytes % 9.4 % (3.3-12.3); Neutrophils % 80.4 % (41.7-73.7); Platelets 129 thou/uL (152-406); Red Cell Distribution Width 14.9 % (12.1-15.2)
[2024-05-31] MEDS: D10W 250 ML IV ONE (05:05)
[2024-05-31] MEDS ORDERED: D50W 25 GM/50 ML SYRINGE IV PRN (05:08)
[2024-05-31] MEDS: D10W 125 ML IV PRN (05:13)
[2024-05-31 05:31] LABS: Albumin 2.2 g/dL (3.4-5.0); Albumin/Globulin Ratio 0.5 (1.1-1.8); Anion Gap 11.7 mEq/L (5.0-15.0); Bilirubin Total 1.1 mg/dL (0.2-1.0); Globulin 4.2 g/dL (2.3-3.5); Potassium 3.7 mEq/L (3.5-5.1); Protein, Total 6.4 g/dL (6.4-8.2); Troponin High Sensitivity 34.6 pg/mL (<58.9)
--- NOTE | 2024-05-31 07:33 | P.PN ---
Date of Service: 05/31/24 subjective Right heel ulcer, cellulitis N.p.o. for surgery today Review of Systems As per HPI 10-point ROS is otherwise unremarkable Physical Examination - Physical Exam vital signs Reviewed General: Alert, In no apparent distress, Oriented x3 HEENT: Atraumatic, Normocephalic Respiratory: Normal air movement, unlabored Cardiovascular: Regular rate/rhythm, Normal S1 S2 Capillary refill: <2 Seconds Gastrointestinal: Soft and benign, Non-distended Musculoskeletal: Other (Tenderness to right dorsal foot, scant pulses, left BKA) Integumentary: Left BKA, right heel ulcer erythema, Warmth, Other (Fourth toe with dark blue cyanotic coloration) Neurological: Normal speech, Normal tone, Normal affect Lymphatics: No axilla or inguinal lymphadenopathy Assessment and Plan - Plan Necrosis fourth right toe SIRS secondary to necrosis of the right foot Leukocytosis Arterial ultrasound right lower extremity (within normal, mild PAD) Consult Dr. Parrish Continue IV antibiotics Pain control Heparin 5000 subcu every 8h Right foot x-ray Subluxation second, third and fourth proximal phalanges. Lucency with a sclerotic border proximal aspect of the fifth metatarsal appears chronic.No acute bony destruction seen.Vascular calcifications noted.Large plantar calcaneal spur Arterial Doppler Mild peripheral vascular disease 05/31 amputation of the right fourth toe Diabetes Hypoglycemia Monitor and trend SSI coverage ADA diet MANPREET, CKD stage III Anemia of chronic disease Vancomycin levels Monitor creatinine closely Avoid nephrotoxic substances Consult Dr. Sauceda CAD EKG Serial troponins Metoprolol 100 mg p.o. daily Isosorbide 30 mg p.o. daily Plavix 75 mg p.o. daily Ulcerative colitis/GERD Mesalamine Protonix - Advance Directives Does patient have a Living Will: No Does patient have a Durable POA for Healthcare: No - Code Status/Comfort Care Code Status Assessed: Yes (Full) Time with patient 35 minutes <Corazon Lazar - Last Filed: 05/31/24 21:19> Patient was seen and examined. Events of the last 24 hours have been noted. Spoke with with ANG regarding patient's clinical picture after evaluating and examining the patient independently. I performed a substantial part of the MDM during this patient's care today. I personally made or approved the documented management plan and acknowledge its risk of complications. I agree with the findings and documentation provided in the ANG's notes. Patient doing better. Continue with antibiotic therapy and continue with surgical intervention. PT angelita <Timur Bustamante - Last Filed: 06/02/24 19:44>
[2024-05-31] MEDS: METOPROLOL TAR 50 MG TAB PO SCH (08:38)
[2024-05-31] MEDS: CLOPIDOGREL 75 MG TABLET PO SCH (08:38)
[2024-05-31] MEDS: ISOSORBIDE MONO SR 30 MG TAB PO SCH (08:39)
--- NOTE | 2024-05-31 10:04 | P.CNS ---
Date of Consult: 05/31/24 Reason for Consult: MANPREET/ CKD Requesting Physician: Timur Bustamante Chief Complaint: Diabetic ulcer/necrotic fourth toe History of Present Illness: Mr. Connor is a 63-year-old male with a past medical history of diabetes, hypertension, CAD, CKD III, PAD, ulcerative colitis, and GERD. He has been seeing Dr. Parrish for a right foot wound for several weeks. On evaluation today his right lower leg was tense, warm, erythematous, with a fourth toe necrosis. He was directed to the ED to be admitted for surgical debridement/amputation tomorrow. Vital signs stable, afebrile, on assessment patient is in no acute distress. Left BKA well-healed right leg from knee to toes with tight edema, erythema, fourth toe with necrosis. Will obtain arterial ultrasound prior to admission. Labs CBC shows a white count of 15.8 with neutrophils of 82%, H/H 12.2/37.7, creatinine 2.38 with a GFR of 30, blood cultures obtained, lactate 1.2 Imaging "No fracture seen. Subluxation second, third, and fourth proximal phalanges. Lucency with sclerotic border proximal aspect of the fifth metatarsal appears chronic. No acute bony destruction seen. Vascular calcifications noted. Large plantar calcaneal spur." Vancomycin and cefepime started in the ED [id number] 11:37 This 63 yrs old Male presents to ER via Wheelchair with complaints of Foot rt sores. 11:37 Patient presents to the ED with wound to the right foot starting 5 days ago. Patient rt has a discoloration of the fourth digit, drainage from that area. Start having proximal erythema, streaking. Was seen by PCP, sent to ED for further evaluation. Symptoms are moderate in severity, no other aggravating or alleviating factors.. Allergies No Known Allergies Allergy (Verified 04/08/23 06:05) Home medications list reviewed: Yes Home Medications: Insulin Detemir [Levemir] See Protocol SQ BID 04/15/22 Metoprolol Succinate [Toprol Xl*] 100 mg PO DAILY 04/15/22 Montelukast [Singulair*] 10 mg PO DAILY 04/15/22 Tamsulosin [Flomax*] 0.4 mg PO DAILY 04/15/22 Losartan/Hydrochlorothiazide [Losartan-Hctz 50-12.5 mg Tab] 1 tab PO DAILY #30 tab 04/16/22 Aspirin Chewable [Aspirin Chewable*] 81 mg PO DAILY 04/06/23 Clopidogrel Bisulfate [Plavix] 75 mg PO DAILY 04/06/23 Empagliflozin [Jardiance] 25 mg PO DAILY 04/06/23 Rosuvastatin Calcium 5 mg PO DAILY 04/06/23 Insulin Glargine,Hum.rec.anlog [Lantus] unit SQ 05/30/24 Isosorbide Mononitrate [Isosorbide Mononitrate ER] 30 mg PO DAILY 05/30/24 - Past Medical/Surgical History Diabetic: Yes -: HTN -: DM II -: CKD IIIb (Dr. Sauceda/ [place]) -: BPH with LUTS -: Ulcerative colitis -: Left BKA 2013 -: Cardiac stents Psychosocial/ Personal History: Patient is disabled, lives at home with his daughter - Family History Mother Medical History: Heart disease, Diabetes Father Medical History: Heart disease - Social History Smoking Status: Former smoker Alcohol use: No CD- Drugs: No Caffeine use: Yes Place of Residence: Home Review of Systems 10-point ROS is otherwise unremarkable Musculoskeletal: Foot Pain Physical Examination Temp Pulse Resp BP Pulse Ox 98.9 F 91 H 18 151/70 H 97 05/31/24 08:00 05/31/24 08:00 05/31/24 08:00 05/31/24 08:00 05/31/24 08:00 General: In no apparent distress, Oriented x3, Cooperative HEENT: Atraumatic Neck: Supple Respiratory: Normal air movement Cardiovascular: No edema Gastrointestinal: Soft and benign, Non-distended Musculoskeletal: No clubbing, No contractures, Other (Left BKA 2013) Integumentary: No rashes, Tenderness/swelling, Cyanosis, Other (4th right black) Laboratory Data (last 24 hrs) 05/30/24 05/30/24 05/30/24 11:38 11:38 11:38 WBC 15.80 H Hgb 12.2 L Hct 37.7 L Plt Count 144 L PT 13.7 H INR 1.23 APTT 33.1 Sodium 134 L Potassium 4.2 BUN 26 H Creatinine 2.38 H Glucose 70 L Total Bilirubin 1.3 H AST 45 H ALT 42 Alkaline Phosphatase 148 H Imagings Data: [id number] Exam:Foot Right 3 View CLINICAL HISTORY: Right foot pain FINDINGS: No fracture seen. Subluxation second, third and fourth proximal phalanges. Lucency with a sclerotic border proximal aspect of the fifth metatarsal appears chronic. No acute bony destruction seen. Vascular calcifications noted. Large plantar calcaneal spur [id number] EXAMINATION: US Lower Extremity Artery Uni Ltd CLINICAL INDICATION: Male, 63 years old. [facility] MA[facility] right lower leg right lower ext TECHNIQUE: Arterial duplex ultrasound was performed of the Right lower extremity with real-time, color-flow, and spectral wave Doppler evaluation. COMPARISON: No prior exam. FINDINGS: Mild plaque throughout the evaluated arterial system. Triphasic waveforms are seen throughout the evaluated Right lower extremity arterial system, to the level of the dorsalis pedis artery, with the exception of the UI APPLICATION DEVELOPER which shows biphasic waveforms. No other suspicious findings. IMPRESSION: Mild peripheral vascular disease. Conclusions/Impression: Stage I MANPREET may be due to hypovolemia CKD IIIb -No NSAIDs -Start gentle IVF with LR HTN with CKD -Continue Metoprolol DM II with CKD -RISS Hypoalbuminemia -Start Nepro Anemia in chronic illness Thrombocytopenia -Monitor CBC BPH with LUTS -Restart tamsulosin Right 4th toe gangrene with foot cellulitis PAD/ CAD -Surgery following -Continue Abx -Continue Plavix Hospitalist and ER notes reviewed Thank you kindly for the consultation
[2024-05-31] MEDS ORDERED: GLUCAGON 1 MG/VIAL IV PRN (10:16)
[2024-05-31] MEDS: TAMSULOSIN 0.4 MG SR CAP PO SCH (10:36)
[2024-05-31] MEDS: D5LR 1,000 ML IV SCH (10:42)
[2024-05-31] MEDS ORDERED: Ringers Lactate 1,000 ML IV SCH (11:00)
[2024-05-31] MEDS: INSULIN REGULAR (HUMAN) 100 UNIT/ML SQ SCH (11:00)
[2024-05-31] MEDS: dexAMETHasone 10 MG/ML VIAL ONE (11:04)
[2024-05-31] MEDS: EPINEPHRINE 1 MG/ML VIAL ONE (11:04)
[2024-05-31] MEDS: LIDOCAINE 1% MPF 5 ML VIAL ONE (11:04)
[2024-05-31] MEDS: FENTANYL CITR 100 MCG/2 ML ONE (11:04)
[2024-05-31] MEDS: MIDAZOLAM HCL 2 MG/2 ML INJ ONE (11:05)
[2024-05-31] MEDS: BUPIVACAINE 0.5% PF 10 ML VIAL ONE (11:05)
[2024-05-31] MEDS: propofoL 1,000 MG/100 ML VIAL IV ONE (11:58)
[2024-05-31] MEDS: NA CHLORIDE 0.9% 1,000 ML ONE (12:15)
[2024-05-31] MEDS ORDERED: dexAMETHasone 4 MG/ML VIAL ONE (12:24)
[2024-05-31] MEDS ORDERED: ONDANSETRON 4 MG/2 ML VIAL ONE (12:24)
[2024-05-31] MEDS: MUPIROCIN 2% OINT 22GM TUBE TOP ONE (12:45)
--- NOTE | 2024-05-31 12:49 | P.BOP ---
Preoperative diagnosis: gangrene right 4th toe with cellulitis of right foot Postoperative diagnosis: same Primary procedure: Amputation of gangrenous right 4th toe Estimated blood loss: none Specimen: toe Findings: as above Anesthesia: MAC Complications: None Transferred to: Recovery Room Condition: Good
[2024-05-31 13:24] VITALS: O2SAT 97
[2024-05-31] MEDS: NEPRO SHAKE 237 ML CAN PO SCH (13:30)
--- NOTE | 2024-05-31 14:51 | EKG ---
Test Date: 2024-05-30 Test Time: 11:27:49 Embedded Software Design Engineer: DEVIKA MEASUREMENT RESULTS: Intervals: Rate: 106 WV: 134 QRSD: 70 QT: 312 QTc: 414 [place]: P: 67 WV: 134 QRS: 106 T: 57 INTERPRETIVE STATEMENTS: Sinus tachycardia Rightward axis Borderline ECG Compared to ECG 04/14/2022 14:44:50 Right-axis deviation now present Uncertain supraventricular rhythm no longer present Fusion complex(es) no longer present Right bundle-branch block no longer present Electronically Signed On 05-31-24 14:46:36 CDT by Alli Lynn
[2024-05-31] MEDS ORDERED: HYDROMORPHONE HCL 0.5 MG/0.5 ML INJ IV PRN (16:04)
[2024-05-31] MEDS: LACTOBACILLUS/ACIDOPHILUS TAB PO SCH (17:09)
[2024-05-31] MEDS: DOCUSATE NA 100 MG CAP PO SCH (22:38)
[2024-05-31] MEDS: PANTOPRAZOLE 40MG TABLET PO SCH (22:39)
--- NOTE | 2024-05-31 23:13 | OP ---
Date of Procedure: 05/31/2024 Surgeon: Jesus Parrish MD Preoperative Diagnosis: Gangrene of the right fourth toe with cellulitis of the foot. Postoperative Diagnosis: Gangrene of the right fourth toe with cellulitis of the foot. Procedure: Amputation of the gangrenous right fourth toe. Estimated Blood Loss: None. Specimen: Gangrenous toe, poor circulation. Anesthesia: MAC plus block. Complications: None. Indication: This is a case of a male who comes to us with a black toe, also cellulitis of the right foot area. The benefits, alternatives, and risks of amputation of the right toe were fully explained , which include, but not limited to, infection, bleeding, damage to adjacent structures, anesthesia c omplication, recurrence, WA, and even . He also understands this may not relieve symptoms. He might need more than one surgical intervention. He was also explained that the circulation of that a antoinette is very poor. He still have to follow up with his vascular doctors to make sure that they can do what they can to improve the circulation there. Otherwise, unfortunately, he may end up likely oppo site side with higher amputation. We also will be treating him with antibiotics. He signed a consen t. Procedure In Detail: The patient was brought to the operating room, placed in supine position. Anes thesia was done without complication. A block of that area was done by Anesthesia Department. The t sloane-out was called. After that, we proceeded then to make an incision at the base of the right toe. The toe was removed at the area of the metatarsophalangeal joint with the head of that metatarsal ar ea also excoriated and the callus removed. During the case, I did not see any bleeding that indicate d severe peripheral vascular disease and may require more than one surgical intervention. At least w e have his toe out of the way because it was wet gangrene and we are afraid that this infection may j ust damage the entire foot, but we are going to continue now with Bactroban in that area today and th en we are going to go back to [facility] trying to remove any devitalized tissue that may form from the l ack of circulation. HM/MODL Voice ID: [id number] Report ID: [id number]
[2024-06-01] MEDS: VANCOMYCIN 1.5 GM in NA CHLORIDE 0.9% 500 ML IVPB SCH (00:36)
[2024-06-01 07:31] LABS: Absolute Lymphocytes (CBC) 0.9 K/uL (0.7-4.9); Absolute Monocytes 0.7 K/uL (0.1-1.3); Absolute Neutrophil 18.1 K/uL (1.8-8.0); Basophils % 0.1 % (0-1.3); Hematocrit 38.2 % (39.6-49.0); Hemoglobin 12.2 g/dL (13.6-17.9); Lymphocytes % 4.4 % (15.3-44.8); MCH 27.1 pg (27.0-35.0); MCHC 31.9 g/dL (32.0-36.0); MCV 85.2 fL (80-100); MPV 10.7 fL (7.6-11.3); Monocytes % 3.4 % (3.3-12.3); Neutrophils % 92.1 % (41.7-73.7); Nucleated RBC Absolute Count 0.1 (0-0); Nucleated Red Blood Cells % 0.3 % (0-0); Platelets 140 thou/uL (152-406); RBC Red Blood Cell Count 4.49 M/uL (4.33-5.43); Red Cell Distribution Width 15.1 % (12.1-15.2)
[2024-06-01 07:42] LABS: Albumin 2.3 g/dL (3.4-5.0); Albumin/Globulin Ratio 0.4 (1.1-1.8); Anion Gap 10.6 mEq/L (5.0-15.0); Bilirubin Total 1.1 mg/dL (0.2-1.0); Globulin 5.4 g/dL (2.3-3.5); Magnesium 2.2 mg/dL (1.6-2.4); Potassium 4.6 mEq/L (3.5-5.1); Protein, Total 7.7 g/dL (6.4-8.2)
[2024-06-01 08:59] LABS: Blood Morphology Comment NOTED (NOT SEEN); Differential Total Cells Count 100; Lymphocytes 1 % (15-42); Monocytes 4 % (0-10); Platelet Estimate ADEQ; Platelets, Giant NOTED; Segmented Neutrophils 94 % (40-80); Spherocyte 1+
[2024-06-01] MEDS: DRISDOL (VITAMIN D=ERGOCALCIFEROL) 50000 UNIT CAP PO SCH (09:23)
[2024-06-01] MEDS: HYDROCODONE/APAP 7.5/325 MG TAB PO PRN (09:26)
--- NOTE | 2024-06-01 11:18 | P.PN ---
Date of Service: 06/01/24 Vital Signs Temp Pulse Resp BP Pulse Ox 97.7 F 81 18 165/75 H 97 06/01/24 08:00 06/01/24 09:30 06/01/24 09:26 06/01/24 09:30 06/01/24 09:26 Medications Acetaminophen (Acetaminophen 500 Mg Tab) 500 mg PO Q4HP PRN PRN Reason: TEMP > 100' F Hydrocodone Bitart/Acetaminophen (Hydrocodone/Apap 7.5/325 Mg Tab) 1 tab PO Q6H PRN PRN Reason: Pain scale 5-7 (Moderate) Last Admin: 06/01/24 09:26 Dose: 1 tab Clopidogrel Bisulfate (Clopidogrel 75 Mg Tablet) 75 mg PO DAILY [facility] Last Admin: 06/01/24 09:25 Dose: 75 mg Docusate Sodium (Docusate Na 100 Mg Cap) 100 mg PO BID [facility] Last Admin: 06/01/24 09:22 Dose: 100 mg Enteral Nutritional Formula (Nepro Shake 237 Ml Can) 240 ml PO TID [facility] Last Admin: 06/01/24 09:00 Dose: 240 ml Ergocalciferol (Drisdol (Vitamin D=Ergocalciferol) 32638 Unit Cap) 50,000 unit PO DAILY [facility] Stop: 06/02/24 09:01 Last Admin: 06/01/24 09:23 Dose: 50,000 unit Fentanyl Citrate (Fentanyl Citr 100 Mcg/2 Ml) 25 mcg IV Q4H PRN PRN Reason: Pain scale 8-10 (Severe) Glucagon (Glucagon 1 Mg/Vial) 1 mg IV Q6HP PRN; Protocol PRN Reason: HYPOGLYCEMIA Heparin Sodium (Porcine) (Heparin 5000 Unit/Ml 1 Ml Vial) 5,000 unit SQ Q8HR [facility] Last Admin: 06/01/24 09:29 Dose: 5,000 unit Hydralazine HCl (Hydralazine Hcl 10 Mg Tablet) 10 mg PO BID PRN PRN Reason: SBP>160 MMHG Cefepime HCl 1 gm/ Sodium (Chloride) 100 mls @ 200 mls/hr IV Q12HR ALDO; Protocol Last Admin: 06/01/24 09:31 Dose: 100 mls Vancomycin HCl 1.5 gm/ Sodium (Chloride) 500 mls @ 250 mls/hr IVPB Q36H ALDO; Protocol Last Admin: 06/01/24 00:36 Dose: 500 mls Dextrose (Dextrose 10% Water Iv Soln.) 125 mls @ 0 mls/hr IV PRN PRN; Protocol PRN Reason: HYPOGLYCEMIA Last Admin: 05/31/24 08:37 Dose: 125 mls Dextrose/Lactated Ringer's (Dextrose 5%-Lactated Ringers) 1,000 mls @ 75 mls/hr IV .[id number] ALDO Last Admin: 05/31/24 22:35 Dose: 1,000 mls Insulin Human Regular (Insulin Regular (Human) 100 Unit/Ml) 0 unit SQ Q6HR ALDO; Protocol Last Admin: 06/01/24 05:58 Dose: 4 unit Isosorbide Mononitrate (Isosorbide Kent Sr 30 Mg Tab) 30 mg PO DAILY [facility] Last Admin: 06/01/24 09:27 Dose: 30 mg Lactobacillus Acidoph/Bulgaricus (Lactobacillus/Acidophilus Tab) 1 tab PO BIDPC ALDO Last Admin: 06/01/24 09:28 Dose: 1 tab Mesalamine (Mesalamine 400 Mg Capsule.Dr) 1,200 mg PO TID ALDO Last Admin: 06/01/24 09:23 Dose: 1,200 mg Metoprolol Tartrate (Metoprolol Tar 50 Mg Tab) 100 mg PO DAILY [facility] Last Admin: 06/01/24 09:30 Dose: 100 mg Montelukast Sodium (Montelukast 10 Mg Tab) 10 mg PO BEDTIME ALDO Last Admin: 05/31/24 22:39 Dose: 10 mg Pantoprazole Sodium (Pantoprazole 40mg Tablet) 40 mg PO Q12HR [facility]; Protocol Last Admin: 06/01/24 09:27 Dose: 40 mg Rosuvastatin Calcium (Rosuvastatin 5 Mg Tab) 5 mg PO BEDTIME ALDO Last Admin: 05/31/24 22:38 Dose: 5 mg Sodium Chloride (Sodium Chloride 0.9% 10ml Inj) 10 ml IV UD PRN PRN Reason: Diluant Tamsulosin HCl (Tamsulosin 0.4 Mg Sr Cap) 0.4 mg PO DAILY [facility] Last Admin: 06/01/24 09:29 Dose: 0.4 mg Microbiology Results 05/30/24 11:38 Blood - Blood Aerobic Blood Culture - Preliminary 05/30/24 11:38 Blood - Blood Blood Culture Gram Stain - Final 05/30/24 11:38 Blood - Blood Anaerobic Blood Culture - Preliminary 05/30/24 11:38 Blood - Blood Gram Stain - Final 05/30/24 11:27 Blood - Blood Aerobic Blood Culture - Preliminary 05/30/24 11:27 Blood - Blood Blood Culture Gram Stain - Final 05/30/24 11:27 Blood - Blood Anaerobic Blood Culture - Preliminary 05/30/24 11:27 Blood - Blood Gram Stain - Final Assessment/ Plan: Nephrology Progress Note No Dyspnea No Chest Pain Right foot pain Reports good urine output No Acute Events Overnight Vital Signs, Medications, Blood Work, and Imaging reviewed in the chart General: In no apparent distress, Oriented x3, Cooperative HEENT: Atraumatic Neck: Supple Respiratory: Normal air movement Cardiovascular: No edema Gastrointestinal: Soft and benign, Non-distended Musculoskeletal: No clubbing, No contractures, Other (Left BKA 2013) Integumentary: No rashes, Tenderness/swelling, Cyanosis, Other (4th right black) Laboratory Data (last 24 hrs) 05/30/24 05/30/24 05/30/24 11:38 11:38 11:38 WBC 15.80 H Hgb 12.2 L Hct 37.7 L Plt Count 144 L PT 13.7 H INR 1.23 APTT 33.1 Sodium 134 L Potassium 4.2 BUN 26 H Creatinine 2.38 H Glucose 70 L Total Bilirubin 1.3 H AST 45 H ALT 42 Alkaline Phosphatase 148 H Imagings Data: [id number] Exam:Foot Right 3 View CLINICAL HISTORY: Right foot pain FINDINGS: No fracture seen. Subluxation second, third and fourth proximal phalanges. Lucency with a sclerotic border proximal aspect of the fifth metatarsal appears chronic. No acute bony destruction seen. Vascular calcifications noted. Large plantar calcaneal spur [id number] EXAMINATION: US Lower Extremity Artery Uni Ltd CLINICAL INDICATION: Male, 63 years old. [facility] MA[facility] right lower leg right lower ext TECHNIQUE: Arterial duplex ultrasound was performed of the Right lower extremity with real-time, color-flow, and spectral wave Doppler evaluation. COMPARISON: No prior exam. FINDINGS: Mild plaque throughout the evaluated arterial system. Triphasic waveforms are seen throughout the evaluated Right lower extremity arterial system, to the level of the dorsalis pedis artery, with the exception of the RESEARCH NUTRITIONIST which shows biphasic waveforms. No other suspicious findings. IMPRESSION: Mild peripheral vascular disease. Conclusions/Impression: Stage I MANPREET may be due to hypovolemia CKD IIIb -No NSAIDs -Continue gentle IVF with LR HTN with CKD -Continue Metoprolol XL -Continue Imdur -Start Amlodipine DM II with CKD -RISS Hypoalbuminemia -Continue Nepro Anemia in chronic illness Thrombocytopenia -Monitor CBC BPH with LUTS -Continue tamsulosin Right 4th toe gangrene with foot cellulitis sp amputation 05-31-24 PAD/ CAD -Surgery following -Continue Abx -Continue Plavix Hospitalist and Surgery notes reviewed
[2024-06-01] MEDS: AMLODIPINE 5 MG TAB PO SCH (12:58)
[2024-06-01] MEDS: Ringers Lactate 1,000 ML IV SCH (12:59)
--- NOTE | 2024-06-01 14:30 | P.DS ---
Admission Date: 05/30/24 Discharge Date: 06/03/24 Disposition: DC HOME/HOME HEALTH CARE Discharge Condition: GOOD Reason for Admission: Diabetic ulcer/necrotic fourth toe Brief History of Present Illness: Mr. Connor is a 63-year-old male with a past medical history of diabetes, hypertension, CAD, CKD III, PAD, ulcerative colitis, and GERD. He has been seeing Dr. Parrish for a right foot wound for several weeks. On evaluation tomagen blanchard his right lower leg was tense, warm, erythematous, with a fourth toe necrosis. He was directed to the ED to be admitted for surgical debridement/amputation tomorrow. Vital signs stable, afebrile, on assessment patient is in no acute distress. Left BKA well-healed right leg from knee to toes with tight edema, erythema, fourth toe with necrosis. Will obtain arterial ultrasound prior to admission. - Physical Exam General: Alert, In no apparent distress, Oriented x3 HEENT: Atraumatic, Normocephalic Neck: Supple Respiratory: Normal air movement Cardiovascular: Regular rate/rhythm, Normal S1 S2 Capillary refill: <2 Seconds Gastrointestinal: Soft and benign, Non-distended Musculoskeletal: Other (Tenderness to right dorsal foot, scant pulses, left BKA) Integumentary: Erythema, Warmth, Other (Fourth toe with dark blue cyanotic coloration) Neurological: Normal speech, Normal tone, Normal affect Lymphatics: No axilla or inguinal lymphadenopathy Hospital Course: 63-year-old male with a past medical history of diabetes, hypertension, CAD, CKD III, PAD, ulcerative colitis, and GERD. He has been seeing Dr. Parrish for a right foot wound for several weeks. On evaluation today his right lower leg was tense, warm, erythematous, with a fourth toe necrosis. He was directed to the ED to be admitted for surgical debridement/amputation tomorrow. Vital signs stable, afebrile, on assessment patient is in no acute distress. Left BKA well- healed right leg from knee to toes with tight edema, erythema, fourth toe with necrosis. Will obtain arterial ultrasound prior to admission. seen by Dr Parrish and s/p debridment of toe, plan to discharge with HHC, wound care, PT a fter discharge. RW walker ordered by SS. He needs to follow up with vascular surgery after discharge. Follow-up with Dr. Molina vascular surgeon Wednesday 4 PM [address], next to the hospital imaging Right foot x-ray Subluxation second, third and fourth proximal phalanges. Lucency with a sclerotic border proximal aspect of the fifth metatarsal appears chronic.No acute bony destruction seen.Vascular calcifications noted.Large plantar calcaneal spur Arterial Doppler Mild peripheral vascular disease 05/31 amputation of the right fourth toe Continue home medicines as previously prescribed GOAL: Clear understanding of disease process INSTRUCTIONS: Physician Discharge Instructions: -follow up with Dr Parrish, call office for appt -Follow up with Vascular surgery after discharge, call office for apt -Follow-up with PCP in 1 to 2 weeks -Please call Dr. Bustamante at [phone] if any questions regarding hospital stay -Please call nursing station at [phone] if any nursing or medication questions -Return to the emergency room if symptoms worsen Diet: ADA, low sodium Activity: Fall precautions Vital Signs/Physical Exam: Temp Pulse Resp BP Pulse Ox 98.0 F 78 16 139/72 99 06/01/24 12:00 06/01/24 12:58 06/01/24 12:00 06/01/24 12:58 06/01/24 12:00 Laboratory Data at Discharge: WBC 19.60 thou/uL (4.3-10.9) H 06/01/24 06:37 Hgb 12.2 g/dL (13.6-17.9) L D 06/01/24 06:37 Hct 38.2 % (39.6-49.0) L 06/01/24 06:37 Plt Count 140 thou/uL (152-406) L 06/01/24 06:37 PT 13.7 SECONDS (9.4-12.5) H 05/30/24 11:38 INR 1.23 05/30/24 11:38 APTT 33.1 SECONDS (24.3-36.9) 05/30/24 11:38 Sodium 135 mEq/L (136-145) L 06/01/24 06:37 Potassium 4.6 mEq/L (3.5-5.1) D 06/01/24 06:37 BUN 22 mg/dL (7-18) H 06/01/24 06:37 Creatinine 2.02 mg/dL (0.70-1.30) H 06/01/24 06:37 Glucose 292 mg/dL (74-106) H 06/01/24 06:37 Magnesium 2.2 mg/dL (1.6-2.4) 06/01/24 06:37 Total Bilirubin 1.1 mg/dL (0.2-1.0) H 06/01/24 06:37 AST 54 U/L (15-37) H 06/01/24 06:37 ALT 60 U/L (16-61) 06/01/24 06:37 Alkaline Phosphatase 181 U/L (45-117) H D 06/01/24 06:37 Triglycerides 100 mg/dL (<150) 05/31/24 04:09 Cholesterol 77 mg/dL (<200) 05/31/24 04:09 HDL Cholesterol 33 mg/dL (40-60) L 05/31/24 04:09 Cholesterol/HDL Ratio 2.33 05/31/24 04:09 Home Medications: Insulin Detemir [Levemir] See Protocol SQ BID 04/15/22 Metoprolol Succinate [Toprol Xl*] 100 mg PO DAILY 04/15/22 Montelukast [Singulair*] 10 mg PO DAILY 04/15/22 Tamsulosin [Flomax*] 0.4 mg PO DAILY 04/15/22 Losartan/Hydrochlorothiazide [Losartan-Hctz 50-12.5 mg Tab] 1 tab PO DAILY #30 tab 04/16/22 Aspirin Chewable [Aspirin Chewable*] 81 mg PO DAILY 04/06/23 Clopidogrel Bisulfate [Plavix*] 75 mg PO DAILY 04/06/23 Empagliflozin [Jardiance] 25 mg PO DAILY 04/06/23 Rosuvastatin Calcium 5 mg PO DAILY 04/06/23 Insulin Glargine,Hum.rec.anlog [Lantus] unit SQ 05/30/24 Isosorbide Mononitrate [Isosorbide Mononitrate ER] 30 mg PO DAILY 05/30/24 Cephalexin [Keflex] 500 mg PO BID 7 Days #14 cap 06/03/24 traMADol HCL [Ultram*] 50 mg PO Q6H PRN 10 Days #20 tab 06/03/24 New Medications: Cephalexin [Keflex] 500 mg PO BID 7 Days #14 cap traMADol HCL [Ultram*] 50 mg PO Q6H PRN 10 Days #20 tab PRN Reason: Pain Physician Discharge Instructions: PROBLEM: Diabetic Foot Ulcer/Wet Gangrene/Wound care GOAL: Clear understanding of disease process Diet: ADA/ Low sodium Activity: Fall precautions Continue Home Medications as previously prescribed. INSTRUCTIONS: Physician Discharge Instructions: -Follow-up with Dr. Wilkes after -follow up with Dr Parrish, call office for appt -Follow up with Vascular surgery after discharge, call office for apt (Dr Henrry Molina's office) -Follow-up with PCP in 1 to 2 weeks -Please call Dr. Bustamante at [phone] if any questions regarding hospital stay -Please call nursing station at [phone] if any nursing or medication questions -Return to the emergency room if symptoms worsen HOME HEALTH ARRANGED WITH: [facility] P:[phone] WHEELCHAIR ordere and delivered to patient's room: [employer] [facility] P: [facility] Patient - order placed for bedside commode pending insurance auth - 06/02/24 [facility]-[address] [place] [address] [id number], [place] [address] DME DME: Date Ordered: 06/01/24 Name of Company: [employer] [facility] Services Needed: Home Health Name of Company: [employer] Date or Referral: 06/01/24 : 63-year-old male with a past medical history of diabetes, hypertension, CAD, CKD III, PAD, ulcerative colitis, and GERD. He has been seeing Dr. Parrish for a right foot wound for several weeks. On evaluation today his right lower leg was tense, warm, erythematous, with a fourth toe necrosis. He was directed to the ED to be admitted for surgical debridement/amputation tomorrow. Vital signs stable, afebrile, on assessment patient is in no acute distress. Left BKA well-healed right leg from knee to toes with tight edema, erythema, fourth toe with necrosis. Will obtain arterial ultrasound prior to admission. seen by Dr Parrish and s/p debridment of toe, plan to discharge with HHC, wound care, PT after discharge. RW walker ordered by . He needs to follow up with vascular surgery after discharge. Discharged home on p.o. Keflex imaging Right foot x-ray Subluxation second, third and fourth proximal phalanges. Lucency with a sclerotic border proximal aspect of the fifth metatarsal appears chronic.No acute bony destruction seen.Vascular calcifications noted.Large plantar calcaneal spur Arterial Doppler Mild peripheral vascular disease 05/31 amputation of the right fourth toe Followup: Marlon Sauceda [ACTIVE - CAN ADMIT] - Aracely Orosco DO, DO [Primary Care Provider] - Jesus Parrish MD [ACTIVE - CAN ADMIT] - Henrry Molina MD [ACTIVE - CAN ADMIT] - Time spent managing pt's care (in minutes): 55
--- NOTE | 2024-06-01 14:45 | P.PN ---
Date of Service: 06/01/24 subjective Right heel ulcer, cellulitis-status post I&D PT to eval for DME needs Review of Systems As per HPI 10-point ROS is otherwise unremarkable Physical Examination - Physical Exam vital signs Reviewed General: Alert, In no apparent distress, Oriented x3 HEENT: Atraumatic, Normocephalic Respiratory: Normal air movement, unlabored Cardiovascular: Regular rate/rhythm, Normal S1 S2 Capillary refill: <2 Seconds Gastrointestinal: Soft and benign, Non-distended Musculoskeletal: Other (Tenderness to right dorsal foot, scant pulses, left BKA) unsteady gait Integumentary: Left BKA, right heel ulcer erythema, Warmth, Other (Fourth toe with dark blue cyanotic coloration) Neurological: Normal speech, Normal tone, Normal affect Lymphatics: No axilla or inguinal lymphadenopathy Assessment and Plan - Plan Necrosis fourth right toe SIRS secondary to necrosis of the right foot Leukocytosis worsening Arterial ultrasound right lower extremity (within normal, mild PAD) Consult Dr. Parrish Continue IV antibiotics Pain control Heparin 5000 subcu every 8h Right foot x-ray Subluxation second, third and fourth proximal phalanges. Lucency with a sclerotic border proximal aspect of the fifth metatarsal appears chronic.No acute bony destruction seen.Vascular calcifications noted.Large plantar calcaneal spur Arterial Doppler Mild peripheral vascular disease 05/31 amputation of the right fourth toe PT to eval for DME needs Follow-up with Dr. Molina vascular after discharge for next Wednesday Diabetes Hypoglycemia Monitor and trend SSI coverage ADA diet MANPREET, CKD stage III Anemia of chronic disease Vancomycin levels Monitor creatinine closely Avoid nephrotoxic substances Consult Dr. Sauceda CAD EKG Serial troponins Metoprolol 100 mg p.o. daily Isosorbide 30 mg p.o. daily Plavix 75 mg p.o. daily Ulcerative colitis/GERD Mesalamine Protonix - Advance Directives Does patient have a Living Will: No Does patient have a Durable POA for Healthcare: No - Code Status/Comfort Care Code Status Assessed: Yes (Full) Time with patient 35 minutes <Corazon Lazar - Last Filed: 06/02/24 09:28> Patient was seen and examined. Events of the last 24 hours have been noted. Spoke with with ANG regarding patient's clinical picture after evaluating and examining the patient independently. I performed a substantial part of the MDM during this patient's care today. I personally made or approved the documented management plan and acknowledge its risk of complications. I agree with the findings and documentation provided in the ANG's notes. Patient doing better. Continue with antibiotic therapy and s/p amputation; scheduled for vascular surgery follow-up outpt. PT angelita <Timur Bustamante - Last Filed: 06/02/24 19:44>
[2024-06-01] MEDS: FENTANYL CITR 100 MCG/2 ML IV PRN (16:19)
[2024-06-01] MEDS: COLLAGENASE 30 GM OINTMENT TOP SCH (16:30)
[2024-06-01] MEDS: INSULIN REGULAR (HUMAN) 100 UNIT/ML SQ SCH (18:05)
--- NOTE | 2024-06-01 19:13 | PN ---
Date of Progress Note: 06/01/2024 Diagnosis: Diabetic ulcer with gangrene of the fourth toe, status post amputation. Subjective: The patient is doing well. Discussed the case with the patient, the importance of offlo ading, Santyl dressings, but the most important part here is to consult his vascular doctor either he re as an outpatient to try to bring irrigation to that foot. Since during the surgery, we found that there is minimal if any circulation to that toe and that is why gangrenous, but we will h ave to check the rest of the foot, so this does not keep happening to him. If possible, fix that. I f not, then he knows the consequences since he has an amputation of the opposite side higher level. He understands. We would like to see him next Wednesday or Wednesday at [facility]. DAMIEN Voice ID: [id number] Report ID: [id number]
[2024-06-01] MEDS: METOPROLOL TAR 50 MG TAB PO SCH (22:37)
[2024-06-01] MEDS: GLUCERNA SHAKE 237 ML CAN PO SCH (22:38)
[2024-06-02] MEDS: METOPROLOL XL 100 MG TAB PO SCH (05:22)
[2024-06-02 06:11] LABS: Absolute Lymphocytes (CBC) 1.3 K/uL (0.7-4.9); Absolute Monocytes 0.8 K/uL (0.1-1.3); Basophils % 0.1 % (0-1.3); Hemoglobin 10.5 g/dL (13.6-17.9); Lymphocytes % 5.5 % (15.3-44.8); MCH 27.5 pg (27.0-35.0); MCHC 32.8 g/dL (32.0-36.0); MCV 83.8 fL (80-100); MPV 10.4 fL (7.6-11.3); Monocytes % 3.6 % (3.3-12.3); Neutrophils % 90.8 % (41.7-73.7); Platelets 166 thou/uL (152-406); RBC Red Blood Cell Count 3.82 M/uL (4.33-5.43); Red Cell Distribution Width 15.2 % (12.1-15.2)
[2024-06-02 06:14] LABS: Albumin/Globulin Ratio 0.5 (1.1-1.8); Anion Gap 8.7 mEq/L (5.0-15.0); Bilirubin Total 0.4 mg/dL (0.2-1.0); Globulin 4.3 g/dL (2.3-3.5); Magnesium 2.3 mg/dL (1.6-2.4); Potassium 4.7 mEq/L (3.5-5.1); Protein, Total 6.3 g/dL (6.4-8.2)
[2024-06-02 07:38] VITALS: BMI 29.1
[2024-06-02] MEDS: ASPIRIN 81 MG CHEWABLE TABLET PO SCH (09:00)
[2024-06-02] MEDS: NA CHLORIDE 0.9% 1,000 ML IV SCH (10:00)
[2024-06-02 10:18] LABS: Band Neutrophils 1 % (0-1); Blood Morphology Comment NOT SEEN (NOT SEEN); Differential Total Cells Count 100; Lymphocytes 4 % (15-42); Monocytes 6 % (0-10); Platelet Estimate ADEQ; Segmented Neutrophils 89 % (40-80)
--- NOTE | 2024-06-02 11:07 | P.PN ---
Nephrology Progress Note (S) Seen working with PT, denies orthostasis, dizziness, CP, dyspnea, Rt foot pain controlled s/p toe amputation Vital Signs, Medications, Blood Work, and Imaging reviewed in the chart General: In no apparent distress HEENT: Atraumatic, sclera anicteric, not on O2 Neck: Supple Respiratory: Normal air movement, no wheezing Cardiovascular: RRR mostly, mild Rt leg edema Gastrointestinal: ND, NT Musculoskeletal: (Left BKA 2013), Rt foot dressed NEURO: Awake, alert, non focal Integumentary: No rashes, Conclusions/Impression: Stage I MANPREET on underlying CKD Stage IIIb, Cr level on admission was above baseline range but has long fluctuated on a regimen off HAROON inhibitors, diuretics/other 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
[2024-06-02 16:22] LABS: Absolute Lymphocytes (CBC) 1.7 K/uL (0.7-4.9); Absolute Monocytes 0.8 K/uL (0.1-1.3); Absolute Neutrophil 16.4 K/uL (1.8-8.0); Basophils % 0.2 % (0-1.3); Eosinophils % 0.2 % (0-4.4); Hematocrit 34.5 % (39.6-49.0); Hemoglobin 10.9 g/dL (13.6-17.9); Lymphocytes % 8.7 % (15.3-44.8); MCH 26.8 pg (27.0-35.0); MCHC 31.5 g/dL (32.0-36.0); MCV 85.1 fL (80-100); MPV 10.7 fL (7.6-11.3); Monocytes % 4.3 % (3.3-12.3); Neutrophils % 86.6 % (41.7-73.7); Platelets 167 thou/uL (152-406); RBC Red Blood Cell Count 4.05 M/uL (4.33-5.43); Red Cell Distribution Width 15.3 % (12.1-15.2)
[2024-06-02 17:08] LABS: Anion Gap 7.9 mEq/L (5.0-15.0); C-Reactive Protein 69.3 mg/L (<3.00); Potassium 4.9 mEq/L (3.5-5.1)
--- NOTE | 2024-06-02 19:49 | P.PN ---
Date of Service: 06/01/24 Subjective Patient is doing better; WBC ct elevated; nephrology wants to hydrate Physical Examination Vitals Reviewed - Physical Exam General: Alert, In no apparent distress, Oriented x3 HEENT: Atraumatic, Normocephalic Respiratory: Normal air movement, unlabored Cardiovascular: Regular rate/rhythm, Normal S1 S2 Capillary refill: <2 Seconds Gastrointestinal: Soft and benign, Non-distended Musculoskeletal: Other (Tenderness to right dorsal foot, scant pulses, left BKA) unsteady gait Integumentary: Left BKA, right heel ulcer erythema, Warmth, Other (Fourth toe with dark blue cyanotic coloration) Neurological: Normal speech, Normal tone, Normal affect Lymphatics: No axilla or inguinal lymphadenopathy Assessment and Plan - Assessment/Plan Necrosis fourth right toe SIRS secondary to necrosis of the right foot Leukocytosis worsening Arterial ultrasound right lower extremity reviewed and vascular surgery is pending outpt Appreciate Dr. Parrish; s/p surgical debridement and ampuation-05/31 amputation of the right fourth toe;outpt po abx and po pain meds Arterial Doppler Mild peripheral vascular disease PT to eval for DME needs Follow-up with Dr. Molina vascular after discharge for next Wednesday Diabetes Hypoglycemia Monitor and trend SSI coverage ADA diet MANPREET, CKD stage III Anemia of chronic disease Vancomycin levels Monitor creatinine closely Avoid nephrotoxic substances Consulted Dr. Sauceda/Harrison appreciated CAD stable; Serial troponins no change Metoprolol 100 mg p.o. daily Isosorbide 30 mg p.o. daily Plavix 75 mg p.o. daily Ulcerative colitis/GERD Mesalamine Protonix - Advance Directives Does patient have a Living Will: No Does patient have a Durable POA for Healthcare: No
[2024-06-03 08:18] LABS: Absolute Eosinophils 0.2 K/uL (0-0.5); Absolute Lymphocytes (CBC) 1.4 K/uL (0.7-4.9); Absolute Monocytes 0.6 K/uL (0.1-1.3); Absolute Neutrophil 6.5 K/uL (1.8-8.0); Basophils % 0.5 % (0-1.3); Eosinophils % 2.1 % (0-4.4); Hematocrit 32.6 % (39.6-49.0); Hemoglobin 10.6 g/dL (13.6-17.9); MCH 27.5 pg (27.0-35.0); MCHC 32.3 g/dL (32.0-36.0); MCV 85.1 fL (80-100); MPV 10.3 fL (7.6-11.3); Monocytes % 6.6 % (3.3-12.3); Neutrophils % 74.8 % (41.7-73.7); Nucleated Red Blood Cells % 0.1 % (0-0); Platelets 159 thou/uL (152-406); RBC Red Blood Cell Count 3.84 M/uL (4.33-5.43); Red Cell Distribution Width 15.6 % (12.1-15.2)
[2024-06-03 08:30] LABS: Anion Gap 8.4 mEq/L (5.0-15.0); C-Reactive Protein 43.4 mg/L (<3.00); Magnesium 2.2 mg/dL (1.6-2.4); Phosphorus 3.4 mg/dL (2.5-4.9); Potassium 4.4 mEq/L (3.5-5.1)
[2024-06-03] MEDS: AMLODIPINE 5 MG TAB PO SCH (09:17)
[2024-06-03 12:54] VITALS: BP 133/64; TEMP 97.3
--- NOTE | 2024-06-04 18:09 | P.PN ---
Date of Service: 06/02/24 subjective moderate leukocytosis on IV antibiotic Unsteady gait working with PT Review of Systems As per HPI 10-point ROS is otherwise unremarkable Physical Examination - Physical Exam vital signs Reviewed General: Alert, In no apparent distress, Oriented x3, afebrile HEENT: Atraumatic, Normocephalic Respiratory: Normal air movement, unlabored Cardiovascular: Regular rate/rhythm, Normal S1 S2 Capillary refill: <2 Seconds Gastrointestinal: Soft and benign, Non-distended Musculoskeletal: Other (Tenderness to right dorsal foot, scant pulses, left BKA) unsteady gait Integumentary: Left BKA, right heel ulcer erythema, Warmth, Other (Fourth toe with dark blue cyanotic coloration) Neurological: Normal speech, Normal tone, Normal affect Assessment and Plan - Plan Necrosis fourth right toe SIRS secondary to necrosis of the right foot Leukocytosis worsening Arterial ultrasound right lower extremity (within normal, mild PAD) Consult Dr. Parrish Continue IV antibiotics Pain control Heparin 5000 subcu every 8h Right foot x-ray Subluxation second, third and fourth proximal phalanges. Becker ncy with a sclerotic border proximal aspect of the fifth metatarsal appears chronic.No acute bony destruction seen.Vascular calcifications noted.Large plantar calcaneal spur Arterial Doppler Mild peripheral vascular disease 05/31 amputation of the right fourth toe PT to eval for DME needs Follow-up with Dr. Tracy pierre after discharge for next Wednesday Diabetes Hypoglycemia improved Monitor and trend SSI coverage ADA diet MANPREET, CKD stage III Anemia of chronic disease Vancomycin levels Monitor creatinine closely Avoid nephrotoxic substances Consult Dr. Sauceda CAD EKG Serial troponins Metoprolol 100 mg p.o. daily Isosorbide 30 mg p.o. daily Plavix 75 mg p.o. daily Ulcerative colitis/GERD Mesalamine Protonix - Advance Directives Does patient have a Living Will: No Does patient have a Durable POA for Healthcare: No - Code Status/Comfort Care Code Status Assessed: Yes (Full) Time with patient 35 minutes
== END 2024-06-03 15:16 | disposition home health service (06) | DRG 854 ==
LOC: ER 10:34 → ERHOLD 12:58 → 2ND 14:30
PROVIDERS: ADMIT Hospitalist; ATTEND Internal Medicine Sleep Medicine
PROC: 0Y6V0Z0 Detachment at Right 4th Toe, Complete, Open Approach (ICD-10-PCS; principal; 2024-05-31 14:45)
DX: A41.2 Sepsis due to unspecified staphylococcus (principal); E11.52 Type 2 diabetes mellitus with diabetic peripheral angiopathy with gangrene; N17.9 Acute kidney failure, unspecified; I96 Gangrene, not elsewhere classified; K51.90 Ulcerative colitis, unspecified, without complications; R65.20 Severe sepsis without septic shock; L03.031 Cellulitis of right toe; E11.621 Type 2 diabetes mellitus with foot ulcer; L97.519 Non-pressure chronic ulcer of other part of right foot with unspecified severity; I12.9 Hypertensive chronic kidney disease with stage 1 through stage 4 chronic kidney disease, or unspecified chronic kidney disease; N18.32 Chronic kidney disease, stage 3b; E11.22 Type 2 diabetes mellitus with diabetic chronic kidney disease; E11.649 Type 2 diabetes mellitus with hypoglycemia without coma; D63.1 Anemia in chronic kidney disease; D69.6 Thrombocytopenia, unspecified; K21.9 Gastro-esophageal reflux disease without esophagitis; E88.09 Other disorders of plasma-protein metabolism, not elsewhere classified; I25.10 Atherosclerotic heart disease of native coronary artery without angina pectoris; Z79.4 Long term (current) use of insulin; Z95.5 Presence of coronary angioplasty implant and graft; Z79.82 Long term (current) use of aspirin; Z79.02 Long term (current) use of antithrombotics/antiplatelets; Z89.411 Acquired absence of right great toe; Z89.512 Acquired absence of left leg below knee; Z87.891 Personal history of nicotine dependence
CPT/HCPCS: 36415; 80048; 80053; 80061; 80069; 80202; 82947; 83605; 83735; 84484; 85025; 85610; 85730; 86140; 87040; 87077; 87186; 87205; 88305; 93005; 93926; 96365; 96366; 96367; 97116; 97161; 99284; J0171; J0692; J1100; J1644; J2003; J2250; J2405; J2470; J2704; J3010; J3590; J7030; J7040; J7050; J7120; J7121

== ENCOUNTER 2024-06-12 11:11 | Emergency (ER) | payer OTHER ==
[2024-06-12 13:56] LABS: Absolute Basophils 0.1 K/uL (0-0.5); Absolute Eosinophils 0.1 K/uL (0-0.5); Absolute Lymphocytes (CBC) 2.1 K/uL (0.7-4.9); Absolute Monocytes 0.6 K/uL (0.1-1.3); Absolute Neutrophil 6.3 K/uL (1.8-8.0); Basophils % 0.6 % (0-1.3); Eosinophils % 0.8 % (0-4.4); Hematocrit 39.8 % (39.6-49.0); Hemoglobin 12.7 g/dL (13.6-17.9); Lymphocytes % 23.4 % (15.3-44.8); MCH 27.4 pg (27.0-35.0); MCHC 31.9 g/dL (32.0-36.0); MPV 9.7 fL (7.6-11.3); Monocytes % 6.9 % (3.3-12.3); Neutrophils % 68.3 % (41.7-73.7); Platelets 216 thou/uL (152-406); RBC Red Blood Cell Count 4.64 M/uL (4.33-5.43); Red Cell Distribution Width 15.6 % (12.1-15.2)
[2024-06-12 14:02] LABS: PT Prothrombin Time 12.8 SECONDS (9.4-12.5); PTT, Activated Partial Thromb 31.8 SECONDS (24.3-36.9); Protime INR 1.15
[2024-06-12 14:14] LABS: Albumin 2.9 g/dL (3.4-5.0); Albumin/Globulin Ratio 0.5 (1.1-1.8); Anion Gap 10.1 mEq/L (5.0-15.0); Bilirubin Total 0.8 mg/dL (0.2-1.0); Globulin 6.1 g/dL (2.3-3.5); Potassium 4.1 mEq/L (3.5-5.1)
--- NOTE | 2024-06-12 14:41 | RAD REPORT ---
EXAMINATION: XR Foot Right 3 View CLINICAL INDICATION: Male, 64 years old. [facility] MAIN PAIN Bed Name: 3 TECHNIQUE: 3 view radiographs of the right foot were obtained. COMPARISON: 05/30/2024 FINDINGS: No evidence of fracture or dislocation. Sequelae of fourth digit amputation. Some irregular ity at the level of the head of the fourth metatarsal may relate to postsurgical changes. Overlying soft tissue wound with packing. No evidence of arthropathy or other focal bone lesion. IMPRESSION: Osseous irregularity at the level of the head of the fourth metatarsal may relate to postsurgical aby nges following amputation. If there is persistent concern for acute osteomyelitis, additional evaluation by MRI with provide improved sensitivity.
--- NOTE | 2024-06-12 15:09 | EDPHYS ---
Physician Documentation [facility] Name: Ranjit Connor Age: 64 yrs Sex: Male : 1960 Arrival Date: 06/12/2024 Time: 11:11 Bed 3 Private MD: ED Physician Alexis Marks HPI: 06/12 12:07 This 64 yrs old Male presents to ER via Wheelchair with complaints of Wound dr5 Recheck - right leg. 12:07 Patient presents to ED for recheck of: 4th toe amputation. dr5 12:08 The affected area is on the right fourth toe and right fifth toe. Patient is a dr5 64-year-old gentleman recently discharged on June 03 for same issue presenting with increased pain, streaking, redness to right foot below fourth amputated toe. Patient reports he finished his last cephalexin pill this morning. Patient also states he is having purulent and serosanguineous discharge from wound.. Historical: - Allergies: :33 No Known Allergies; ll1 - PMHx: :33 Hypertension; Glaucoma; Diabetes - IDDM; ulcerative colitis; ll1 - PSHx: 11:33 BKA - left; ll1 - Immunization history:: Adult Immunizations up to date. - Infectious Disease History:: Denies. - Social history:: Smoking status: Patient denies any tobacco usage or history of. ROS: 12:08 Constitutional: as per hpi dr5 Exam: 12:08 Constitutional: This is a well developed, well nourished patient who is awake, alert, dr5 and in no acute distress. Head/Face: Normocephalic, atraumatic. Chest/axilla: Normal chest wall appearance and motion. Nontender with no deformity. No lesions are appreciated. Cardiovascular: Regular rate and rhythm with a normal S1 and S2. Normal PMI, no JVD. No pulse deficits. Respiratory: Lungs have equal breath sounds bilaterally, clear to auscultation. No rales, rhonchi or wheezes noted. No increased work of breathing, no retractions or nasal flaring. 12:08 Skin: Wound recheck: Amputation of right 4th toe noted with serosanguineous drainage on gauze. Wound is packed with tenderness proximal to wound. NVI. 5/5 strength. Mild swelling noted to entire foot., 12:08 Neuro: Orientation: appropriate for stated age, Vital Signs: 11:33 BP 137 / 67; Pulse 65; Resp 17; Temp 97.6; Pulse Ox 100% on R/A; Weight 83.91 kg; ll1 Height 5 ft. 7 in. ; Pain 8/10; 14:31 BP 149 / 64; Pulse 67; Resp 16; Pulse Ox 100% on R/A; mb9 15:32 BP 140 / 68; Pulse 74; Resp 16; Pulse Ox 100% on R/A; mb9 11:33 Body Mass Index 28.97 (83.91 kg, 170.18 cm) ll1 11:33 Pain Scale: Adult ll1 MDM: 11:18 Medical Screening Exam initiated dr5 17:22 Differential diagnosis: cellulitis, Osteomyelitis, cellulitis, acute kidney injury. dr5 Data reviewed: vital signs, nurses notes. Consideration of Admission/Observation Escalation of care including admission/observation considered. Considered admission if x-ray showed osteomyelitis or lab work revealed sepsis. Historians other than the Patient: Spouse/Significant Other: . Care significantly affected by the following chronic conditions: Diabetes, Hypertension, Glaucoma. Care significantly affected by the following Social Determinants of Health: Poor access to healthcare and/or lack of insurance, Poor access to transportation. Counseling: I had a detailed discussion with the patient and/or guardian regarding the historical points, exam findings, and any diagnostic results supporting the discharge/admit diagnosis, the presence of at least one elevated blood pressure reading (>120/80) during this emergency department visit, lab results, radiology results, the need for outpatient follow up, a family practitioner, a general surgeon, to return to the emergency department if symptoms worsen or persist or if there are any questions or concerns that arise at home. Special discussion: I discussed with the patient/guardian in detail that at this point there is no indication for admission to the hospital. It is understood, however, that if the symptoms persist or worsen the patient needs to return immediately for re-evaluation. I discussed in detail with the patient the higher chance of wound infection based on his presenting history. ED course: Discussed with patient to follow-up with vascular surgeon appointment that he has since . Will continue antibiotics. Went over lab work and x-ray results with patient. Lactic acid is normal. No evidence of osteomyelitis. Patient is agreeable to plan. Patient's wound was wrapped. Explained the patient that wound is well-appearing and clear drainage is expected.. 06/12 11:43 Order name: CBC with Diff; Complete Time: 14:16 [facility] 06/12 11:43 Order name: CMP; Complete Time: 14:32 [facility] 06/12 11:43 Order name: Lactate w/ 2H reflex if indic.; Complete Time: 14:16 [facility] 06/12 11:43 Order name: Protime (+inr); Complete Time: 14:16 [facility] 06/12 11:43 Order name: Ptt, Activated; Complete Time: 14:16 [facility] 06/12 11:44 Order name: Blood Culture Adult (2) dr5 06/12 11:43 Order name: Foot Right 3 View XRAY; Complete Time: 14:45 [facility] 06/12 11:43 Order name: Labs collected and sent; Complete Time: 13:50 [facility] 06/12 11:43 Order name: O2 Per Protocol; Complete Time: 12:56 [facility] 06/12 11:43 Order name: O2 Sat Monitoring; Complete Time: 12:56 [facility] 06/12 11:43 Order name: Vital Signs; Complete Time: 12:56 dr5 Administered Medications: No medications were administered Disposition Summary: 06/12/24 15:08 Discharge Ordered Notes: Location: Home dr5 Condition: Stable dr5 Diagnosis - Pain in right foot dr5 Followup: dr5 - With: Emergency Department - When: As needed - Reason: Worsening of condition Followup: dr5 - With: Private Physician - When: 1 - 2 days - Reason: Recheck today's complaints, Continuance of care, Re-evaluation by your physician Discharge Instructions: - Discharge Summary Sheet dr5 - Diabetes Mellitus and Foot Care dr5 Forms: - Medication Reconciliation Form dr5 - Patient Portal Instructions dr5 - Leadership Thank You Letter dr5 Prescriptions: - Cephalexin 500 mg Oral Capsule - take 1 capsule ORAL route every 8 hours for 10 days; 30 capsule; Refills: 0, dr5 Product Selection Permitted - Tramadol 50 mg Oral tablet - take 1 tablet ORAL route every 8 hours as needed; 20 tablet; Refills: 0, dr5 Product Selection Permitted Signatures: Dispatcher [employer] Eugenie Tesfaye RN RN ll1 Oj, Francesca Rendon RN RN mb9 Indra Vanessa, INSPECTOR BALANCE WHEEL MOTION-C INSPECTOR BALANCE WHEEL MOTION-Cdr5 Corrections: (The following items were deleted from the chart) 11:44 11:44 CBC+H.LAB.BRZ ordered. EDMS EDMS 11: 11:44 COMPREHENSIVE METABOLIC PANEL+C.LAB.BRZ ordered. EDMS EDMS : 11:44 LACTATE+C.LAB.BRZ ordered. EDMS EDMS 11:44 PROTIME (+INR)+COAG.LAB.BRZ ordered. EDMS EDMS 11:44 PTT, ACTIVATED+COAG.LAB.BRZ ordered. EDMS EDMS 11:44 Foot Right 3 View+RAD.RAD.BRZ ordered. EDMS EDMS 12: 12:07 Patient presents to ED for recheck of: 4th toe amputation, dr5 dr5
--- NOTE | 2024-06-12 15:09 | ER ---
Nurse's Notes [facility] Name: Ranjit Connor Age: 64 yrs Sex: Male : 1960 Arrival Date: 06/12/2024 Time: 11:11 Bed 3 Private MD: Diagnosis: Pain in right foot Presentation: 06/12 11:33 Chief complaint: Patient states: R foot wound just isn't healing well. Had surgery last ll1 week on it. Coronavirus screen: Client denies travel out of the [place] in the last 14 days. At this time, the client does not indicate any symptoms associated with coronavirus-19. Ebola Screen: Patient denies travel to an Ebola-affected area in the 21 days before illness onset. Initial Sepsis Screen: Does the patient meet any 2 criteria? No. Patient's initial sepsis screen is negative. Does the patient have a suspected source of infection? No. Patient's initial sepsis screen is negative. Risk Assessment: Do you want to hurt yourself or someone else? Patient reports no desire to harm self or others. Onset of symptoms was June 02, 2024. 11:33 Method Of Arrival: Wheelchair ll1 11:33 Acuity: ALEXANDER 3 ll1 Historical: - Allergies: 11:33 No Known Allergies; ll1 - PMHx: 11:33 Hypertension; Glaucoma; Diabetes - IDDM; ulcerative colitis; ll1 - PSHx: 11:33 BKA - left; ll1 - Immunization history:: Adult Immunizations up to date. - Infectious Disease History:: Denies. - Social history:: Smoking status: Patient denies any tobacco usage or history of. Screenin:48 [facility] [place] ED Fall Risk Assessment (Adult) History of falling in the last 3 months, mb9 including since admission No falls in past 3 months (0 pts) Confusion or Disorientation No (0 pts) Intoxicated or Sedated No (0 pts) Impaired Gait No (0 pts) Mobility Assist Device Used No (0 pt) Altered Elimination No (0 pt) Score/Fall Risk Level 0 - 2 = Low Risk Oriented to surroundings, Maintained a safe environment, Educated pt \T\ family on fall prevention, incl call for assistance when getting out of bed. Abuse screen: Denies threats or abuse. Nutritional screening: No deficits noted. Tuberculosis screening: No symptoms or risk factors identified. Assessment: 13:22 General: Appears in no apparent distress. Behavior is calm, cooperative. Pain: mb9 Complains of pain in right foot Quality of pain is described as throbbing. Neuro: Chavez Agitation-Sedation Scale (RASS): 0 - Alert and Calm Level of Consciousness is awake, alert, obeys commands, Oriented to person, place, time, situation, Appropriate for age. Cardiovascular: Patient's skin is warm and dry. Respiratory: Airway is patent Respiratory effort is even, unlabored, Respiratory pattern is regular, symmetrical. GI: Abdomen is round non-distended. : No signs and/or symptoms were reported regarding the genitourinary system. EENT: No signs and/or symptoms were reported regarding the EENT system. Musculoskeletal: Musculoskeletal: Amputation of right fifth toe and right fourth toe. 13:22 Derm: Skin is red. mb9 Vital Signs: 11:33 BP 137 / 67; Pulse 65; Resp 17; Temp 97.6; Pulse Ox 100% on R/A; Weight 83.91 kg; ll1 Height 5 ft. 7 in. ; Pain 8/10; 14:31 BP 149 / 64; Pulse 67; Resp 16; Pulse Ox 100% on R/A; mb9 15:32 BP 140 / 68; Pulse 74; Resp 16; Pulse Ox 100% on R/A; mb9 11:33 Body Mass Index 28.97 (83.91 kg, 170.18 cm) ll1 11:33 Pain Scale: Adult ll1 ED Course: 11:16 Patient arrived in ED. im 11:18 Indra Vanessa FNP-C is PHCP. dr5 11:18 Alexis Marks MD is Attending Physician. dr5 11:34 Triage completed. ll1 11:34 Arm band placed on Patient placed in an exam room, on a stretcher. ll1 12:48 Francesca Mcwilliams RN is Primary Nurse. mb9 12:48 Placed in gown. Bed in low position. Call light in reach. Side rails up X 1. Provided mb9 Education on: press call light if needing anything. Client placed on continuous cardiac and pulse oximetry monitoring. NIBP monitoring applied. Door closed. Noise minimized. Warm blanket given. Pillow given. 12:51 Foot Right 3 View XRAY In Process Unspecified. EDMS 13:13 Missed attempt(s): 20 gauge in left forearm. Bleeding controlled, band aid applied, am7 catheter tip intact. 13:14 Missed attempt(s): 20 gauge in right forearm. Bleeding controlled, band aid applied, am7 catheter tip intact. 13:24 No provider procedures requiring assistance completed. mb9 13:49 Initial lab(s) drawn, by me, sent to lab. Inserted saline lock: 20 gauge in right mb9 forearm, using aseptic technique. Blood collected. Flushed with 10 mL NS. 13:50 CBC with Diff Sent. mb9 13:50 CMP Sent. mb9 13:50 Protime (+inr) Sent. mb9 13:50 Ptt, Activated Sent. mb9 13:50 Blood Culture Adult (2) Sent. mb9 15:32 IV discontinued, intact, bleeding controlled, No redness/swelling at site. Pressure mb9 dressing applied. Administered Medications: No medications were administered Medication: 12:48 VIS not applicable for this client. mb9 Outcome: 15:08 Discharge ordered by . dr5 15:33 Discharged to home ambulatory, mb9 15:33 Condition: stable 15:33 Discharge instructions given to patient, Instructed on discharge instructions, follow up and referral plans. Demonstrated understanding of instructions, follow-up care, medications, Prescriptions given X 2, 15:33 Patient left the ED. mb9 Signatures: Dispatcher [employer] EDMS Eugenie Mota, RN RN ll1 Francesca Mcwilliams RN RN mb9 Kenyetta Blackmon Dustin, MEDICAL INSURANCE CODER-C MEDICAL INSURANCE CODER-Cdr5 Melvi Herron am7 Corrections: (The following items were deleted from the chart) 13:24 13:22 Musculoskeletal: Amputation of BKA. Musculoskeletal: Amputation of BKA. mb9 mb9
[2024-06-12 15:56] VITALS: TEMP 97.6; O2SAT 100
[2024-06-12 16:08] VITALS: BP 140/68
== END 2024-06-12 15:33 | disposition home or self-care (01) ==
LOC: ER 11:11
DX: M79.671 Pain in right foot (principal); Z89.421 Acquired absence of other right toe(s); E11.9 Type 2 diabetes mellitus without complications; I10 Essential (primary) hypertension; Z89.512 Acquired absence of left leg below knee
CPT/HCPCS: 36415; 80053; 83605; 85025; 85610; 85730; 87040; 99284

== ENCOUNTER 2024-06-17 10:07 | Inpatient (IN) | payer OTHER ==
[2024-06-17] MEDS ORDERED: CEFEPIME 2 GM VIAL ONE (11:18)
[2024-06-17] MEDS ORDERED: NA CHLORIDE 0.9% 100 ML ONE (11:18)
[2024-06-17] MEDS ORDERED: NA CHLORIDE 0.9% 250 ML ONE (11:18)
[2024-06-17] MEDS ORDERED: VANCOMYCIN 1 GM/VIAL ONE (11:18)
[2024-06-17 12:05] LABS: Absolute Basophils 0.1 K/uL (0-0.5); Absolute Eosinophils 0.1 K/uL (0-0.5); Absolute Lymphocytes (CBC) 1.6 K/uL (0.7-4.9); Absolute Monocytes 0.6 K/uL (0.1-1.3); Basophils % 1.4 % (0-1.3); Eosinophils % 1.7 % (0-4.4); Hematocrit 31.9 % (39.6-49.0); Hemoglobin 10.1 g/dL (13.6-17.9); Lymphocytes % 24.6 % (15.3-44.8); MCH 26.9 pg (27.0-35.0); MCHC 31.7 g/dL (32.0-36.0); MCV 84.9 fL (80-100); MPV 9.5 fL (7.6-11.3); Monocytes % 9.5 % (3.3-12.3); Neutrophils % 62.8 % (41.7-73.7); Platelets 187 thou/uL (152-406); RBC Red Blood Cell Count 3.75 M/uL (4.33-5.43); Red Cell Distribution Width 15.1 % (12.1-15.2)
[2024-06-17 12:09] LABS: PT Prothrombin Time 13.5 SECONDS (9.4-12.5); Protime INR 1.21
[2024-06-17] MEDS ORDERED: FENTANYL CITR 100 MCG/2 ML ONE (12:09)
[2024-06-17 12:22] LABS: ALT/SGPT < 14 U/L (16-61); AST/SGOT 25 U/L (15-37); Albumin 2.5 g/dL (3.4-5.0); Albumin/Globulin Ratio 0.5 (1.1-1.8); Alkaline Phosphatase 103 U/L (45-117); Anion Gap 9.9 mEq/L (5.0-15.0); BUN Blood Urea Nitrogen 13 mg/dL (7-18); Bicarbonate 26 mEq/L (21-32); Bilirubin Total 0.6 mg/dL (0.2-1.0); Globulin 5.2 g/dL (2.3-3.5); Glomerular Filtration Rate 42 ml/min (=/>90); Glucose Level 170 mg/dL (74-106); Potassium 4.9 mEq/L (3.5-5.1); Protein, Total 7.7 g/dL (6.4-8.2); Sodium Level 135 mEq/L (136-145)
--- NOTE | 2024-06-17 12:42 | RAD REPORT ---
EXAMINATION: XR Foot Right 3 View CLINICAL INDICATION: Male, 64 years old. [facility] infection Bed Name: 20 TECHNIQUE: 3 view radiographs of the right foot were obtained. COMPARISON: 06/12/2024 FINDINGS: Sequelae of fourth digit amputation at the level of the fourth metatarsal head. Stable mild osseous irregularity of the fourth metatarsal head, with wound containing gas in the overlying soft tissues. Stable alignment. No evidence of arthropathy. Scattered up to moderate degenerative aby nges are again seen . IMPRESSION: Stable mild osseous irregularity at the fourth metatarsal head. Stable overlying soft tissue wound. I f there is persistent clinical concern for acute osteomyelitis, additional evaluation by MRI would be warranted.
--- NOTE | 2024-06-17 13:45 | EDPHYS ---
Physician Documentation [facility] Name: Ranjit Connor Age: 64 yrs Sex: Male : 1960 Arrival Date: 06/17/2024 Time: 10:07 Bed 20 Private MD: ED Physician Donald Gutierres HPI: 06/17 13:13 This 64 yrs old Male presents to ER via Wheelchair with complaints of FOOT rt INFECTION. 13:13 Patient with history of diabetes with recent mission for foot wound presents to the ED rt with worsening pain to the right foot as well as black discoloration for the past week. States that symptoms have worsened today. Denies other acute complaints at this time, symptoms are moderate in severity, no other aggravating or alleviating factors.. Historical: - Allergies: :34 No Known Allergies; hb - PMHx: :34 Diabetes - IDDM; Hypertension; ulcerative colitis; Glaucoma; hb - Immunization history:: Adult Immunizations unknown. - Infectious Disease History:: Denies. - Family history:: not pertinent. - Social history:: Smoking status: unknown. ROS: 13:13 Constitutional: Negative for fever, chills, and weight loss, Cardiovascular: Negative rt for chest pain, palpitations, and edema, Respiratory: Negative for shortness of breath, cough, wheezing, and pleuritic chest pain, Abdomen/GI: Negative for abdominal pain, nausea, vomiting, diarrhea, and constipation, Neuro: Negative for headache, weakness, numbness, tingling, and seizure, 13:13 MS/extremity: Positive for Wound, pain, Exam: 13:13 Constitutional: This is a well developed, well nourished patient who is awake, alert, rt and in no acute distress. Head/Face: Normocephalic, atraumatic. Chest/axilla: Normal chest wall appearance and motion. Nontender with no deformity. No lesions are appreciated. Cardiovascular: Regular rate and rhythm with a normal S1 and S2. No gallops, murmurs, or rubs. Normal PMI, no JVD. No pulse deficits. Respiratory: Lungs have equal breath sounds bilaterally, clear to auscultation and percussion. No rales, rhonchi or wheezes noted. No increased work of breathing, no retractions or nasal flaring. Abdomen/GI: Soft, non-tender, with normal bowel sounds. No distension or tympany. No guarding or rebound. No evidence of tenderness throughout. Neuro: Awake and alert, GCS 15, oriented to person, place, time, and situation. Cranial nerves II-XII grossly intact. Motor strength 5/5 in all extremities. Sensory grossly intact. Cerebellar exam normal. Normal gait. 13:13 ECG was reviewed by the Attending Physician. 13:13 Musculoskeletal/extremity: Dry gangrene noted to the right fourth digit with proximal dark discoloration, palpable pulses, skin is warm. Vital Signs: 10:32 BP 152 / 75; Pulse 107; Resp 16; Temp 99.5(O); Pulse Ox 97% on R/A; Weight 83.91 kg; hb Height 5 ft. 7 in. ; Pain 8/10; 12:00 BP 140 / 70; Pulse 81; Resp 18; Pulse Ox 99% on R/A; ph 13:00 BP 154 / 76; Pulse 90; Resp 16; Pulse Ox 99% on R/A; ph 14:30 BP 162 / 75; Pulse 87; Resp 16; Pulse Ox 99% on R/A; ph 16:00 BP 170 / 84; Pulse 92; Resp 18; Pulse Ox 98% on R/A; ph 16:59 BP 151 / 74; Pulse 85; Resp 18; Pulse Ox 98% ; ph 18:00 BP 169 / 80; Pulse 84; Resp 18; Temp 97.9; Pulse Ox 99% on R/A; ph 10:32 Body Mass Index 28.97 (83.91 kg, 170.18 cm) hb 10:32 Pain Scale: Adult hb MDM: 10:35 Medical Screening Exam initiated rt 13:44 Differential Diagnosis Diabetic foot wound, osteomyelitis, gangrene. Data reviewed: rt vital signs, nurses notes, lab test result(s), radiologic studies. Consideration of Admission/Observation Patient was admitted/placed on observation. Management of patient was discussed with the following: Hospitalist: Agrees to admit. I considered the following discharge prescriptions or medication management in the emergency department Medications were administered in the Emergency Department. See MAR. Independent interpretation of the following test(s) in the Emergency Department X-Ray: My interpretation is No fracture seen on interpretation of x-ray images. Care significantly affected by the following chronic conditions: Diabetes. Counseling: I had a detailed discussion with the patient and/or guardian regarding the historical points, exam findings, and any diagnostic results supporting the discharge/admit diagnosis, lab results, radiology results, the need for further work-up and treatment in the hospital. Response to treatment: There is no appreciated change of the patient's symptoms at this time. 06/17 10:43 Order name: Blood Culture Adult (2) rt 06/17 10:43 Order name: CBC with Diff; Complete Time: 12:24 rt 06/17 10:43 Order name: CMP; Complete Time: 12:24 rt 06/17 10:43 Order name: Lactate w/ 2H reflex if indic.; Complete Time: 12:24 rt 06/17 10:43 Order name: Protime (+inr); Complete Time: 12:24 rt 06/17 10:43 Order name: Ptt, Activated; Complete Time: 12:24 rt 06/17 16:37 Order name: CBC with Automated Diff EDMS 06/17 16:37 Order name: CBC with Automated Diff EDMS 06/17 16:37 Order name: Comprehensive Metabolic Panel EDMS 06/17 16:37 Order name: Comprehensive Metabolic Panel EDMS 06/17 16:37 Order name: Magnesium EDMS 06/17 16:37 Order name: Magnesium EDMS 06/17 16:37 Order name: Phosphorus EDMS 06/17 16:37 Order name: Phosphorus EDMS 06/17 16:37 Order name: Protime (+INR) EDMS 06/17 16:37 Order name: Protime (+INR) EDMS 06/17 16:37 Order name: PTT, Activated Partial Thromb EDMS 06/17 16:37 Order name: PTT, Activated Partial Thromb EDMS 06/17 16:53 Order name: CHROMOGRANIN A EDMS 06/17 16:53 Order name: CHROMOGRANIN A EDMS 06/17 16:53 Order name: Urine 5HIAA (Serotonin) EDMS 06/17 16:53 Order name: Urine 5HIAA (Serotonin) EDMS 06/17 10:43 Order name: Foot Right 3 View XRAY; Complete Time: 12:43 rt 06/17 16:53 Order name: Abdomen EDMS 06/17 16:53 Order name: Abdomen EDMS 06/17 16:53 Order name: Echo with Doppler EDMS 06/17 16:53 Order name: Echo with Doppler EDMS 06/17 16:53 Order name: Chest Single View [facility] 06/17 16:53 Order name: Chest Single View [facility] 06/17 16:37 Order name: CONS Physician Consult [facility] 06/17 16:37 Order name: CONS Physician Consult [facility] 06/17 10:43 Order name: Accucheck; Complete Time: 13:03 rt 06/17 10:43 Order name: Cardiac monitoring; Complete Time: 12:28 rt 06/17 10:43 Order name: EKG - Nurse/Tech; Complete Time: 12:27 rt 06/17 10:43 Order name: IV Saline Lock - Large Bore; Complete Time: 13:03 rt 06/17 10:43 Order name: Labs collected and sent; Complete Time: 13:03 rt 06/17 10:43 Order name: O2 Per Protocol; Complete Time: 13:03 rt 06/17 10:43 Order name: O2 Sat Monitoring; Complete Time: 13:03 rt 06/17 10:43 Order name: Vital Signs; Complete Time: 13:03 rt EC:13 Rate is 86 beats/min. Rhythm is regular, Normal Sinus Rhythm with No ectopy. QRS Barnard rt is Normal. NM interval is normal. QRS interval is normal. QT interval is normal. No Q waves. T waves are Normal. No ST changes noted. Interpreted by me. Administered Medications: 12:42 Drug: fentaNYL (PF) IVP 75 mcg IVP once Route: IVP; Site: right hand; ph 13:15 Follow up: Response: No adverse reaction; Pain is decreased; RASS: Alert and Calm (0) ph 12:43 Drug: Cefepime IVPB 2 grams IVPB at 200 ml/hr once over 30 mins; (mix in NS 100 mL) ph Route: IVPB; Rate: 200 ml/hr; Infused Over: 30 mins; Site: right hand; 19:13 Follow up: Response: No adverse reaction; IV Status: Completed infusion ph 13:14 Drug: vancoMYCIN IVPB 1 grams IVPB once over 2 hrs Route: IVPB; Infused Over: 2 hrs; ph Site: right hand; 15:15 Follow up: Response: No adverse reaction; IV Status: Completed infusion ph Disposition Summary: 06/17/24 13:44 Hospitalization Ordered Notes: Hospitalization Status: Inpatient Admission rt Provider: Timur Bustamante rt Location: Telemetry/MedSurg (Inpatient) rt Condition: Stable rt Problem: an ongoing problem rt Symptoms: are unchanged rt Bed/Room Type: Standard rt Room Assignment: 411(06/17/24 16:46) eb Diagnosis - Diabetic foot wound rt Forms: - Medication Reconciliation Form rt - SBAR form rt - Leadership Thank You Letter rt Signatures: Dispatcher [employer] Annamaria Singleton RN RN Mera Saleh RN RN Latanya Hemphill Ryan, MD MD rt Corrections: (The following items were deleted from the chart) 10:43 10:43 Foot Right 3 View+RAD.RAD.BRZ ordered. [facility] 16:46 13:44 rt eb
--- NOTE | 2024-06-17 13:45 | ER ---
Nurse's Notes [facility] Name: Ranjit Connor Age: 64 yrs Sex: Male : 1960 Arrival Date: 06/17/2024 Time: 10:07 Bed 20 Private MD: Diagnosis: Diabetic foot wound Presentation: 06/17 10:32 Chief complaint: Chronic right foot wound, reports worsening pain and chills x 2-3 hb days. Coronavirus screen: At this time, the client does not indicate any symptoms associated with coronavirus-19. Ebola Screen: No symptoms or risks identified at this time. Initial Sepsis Screen: Does the patient meet any 2 criteria? HR > 90 bpm. No. Patient's initial sepsis screen is negative. Does the patient have a suspected source of infection? No. Patient's initial sepsis screen is negative. Risk Assessment: Do you want to hurt yourself or someone else? Patient reports no desire to harm self or others. Onset of symptoms was June 15, 2024. 10:32 Method Of Arrival: Wheelchair hb 10:32 Acuity: ALEXANDER 3 hb Historical: - Allergies: 10:34 No Known Allergies; hb - PMHx: 10:34 Diabetes - IDDM; Hypertension; ulcerative colitis; Glaucoma; hb - Immunization history:: Adult Immunizations unknown. - Infectious Disease History:: Denies. - Family history:: not pertinent. - Social history:: Smoking status: unknown. Screenin:56 [facility] ED Fall Risk Assessment (Adult) History of falling in the last 3 months, ph including since admission No falls in past 3 months (0 pts) Confusion or Disorientation No (0 pts) Intoxicated or Sedated No (0 pts) Impaired Gait Yes (1 pt) Mobility Assist Device Used Yes (1 pt) Altered Elimination No (0 pt) Score/Fall Risk Level 0 - 2 = Low Risk Oriented to surroundings, Maintained a safe environment, Provided non-skid footwear, Hourly rounding (assess needs \T\ fall precautionary measures) done. Abuse screen: Denies threats or abuse. Denies injuries from another. Nutritional screening: No deficits noted. Tuberculosis screening: No symptoms or risk factors identified. Assessment: 11:54 General: Appears in no apparent distress. comfortable, Behavior is calm, cooperative, ph appropriate for age. Pain: Complains of pain in right foot. Neuro: Level of Consciousness is awake, alert, obeys commands, Oriented to person, place, time, situation. Cardiovascular: Capillary refill < 3 seconds in bilateral fingers Patient's skin is warm and dry. Respiratory: Airway is patent Respiratory effort is even, unlabored, Respiratory pattern is regular, symmetrical. Derm: Skin is pink, warm \T\ dry. Derm: Wound noted lateral side of right foot, right third toe and right fifth toe Wound is blackened in appearance w/ minimal drainage noted. Musculoskeletal: Amputation of left BKA. Circulation, motion, and sensation intact. Musculoskeletal: Amputation of right fourth toe. 14:00 Reassessment: Patient appears in no apparent distress at this time. Patient and/or ph family updated on plan of care and expected duration. Pain level reassessed. Patient is alert, oriented x 3, equal unlabored respirations, skin warm/dry/pink. 16:00 Reassessment: Patient appears in no apparent distress at this time. Patient and/or ph family updated on plan of care and expected duration. Pain level reassessed. Patient is alert, oriented x 3, equal unlabored respirations, skin warm/dry/pink. Vital Signs: 10:32 BP 152 / 75; Pulse 107; Resp 16; Temp 99.5(O); Pulse Ox 97% on R/A; Weight 83.91 kg; hb Height 5 ft. 7 in. ; Pain 8/10; 12:00 BP 140 / 70; Pulse 81; Resp 18; Pulse Ox 99% on R/A; ph 13:00 BP 154 / 76; Pulse 90; Resp 16; Pulse Ox 99% on R/A; ph 14:30 BP 162 / 75; Pulse 87; Resp 16; Pulse Ox 99% on R/A; ph 16:00 BP 170 / 84; Pulse 92; Resp 18; Pulse Ox 98% on R/A; ph 16:59 BP 151 / 74; Pulse 85; Resp 18; Pulse Ox 98% ; ph 18:00 BP 169 / 80; Pulse 84; Resp 18; Temp 97.9; Pulse Ox 99% on R/A; ph 10:32 Body Mass Index 28.97 (83.91 kg, 170.18 cm) hb 10:32 Pain Scale: Adult hb ED Course: 10:11 Patient arrived in ED. sj2 10:21 Donald Gutierres MD is Attending Physician. rt 10:25 Annamaria Wilson, RN is Primary Nurse. ph 10:34 Triage completed. hb 11:33 Foot Right 3 View XRAY In Process Unspecified. EDMS 11:53 Arm band placed on Patient placed in an exam room, on a stretcher. ph 11:53 Initial lab(s) drawn, by me, sent to lab. Missed attempt(s): 22 gauge in right forearm. ph Bleeding controlled, band aid applied, catheter tip intact. Inserted saline lock: 22 gauge in right hand, using aseptic technique. Blood collected. Flushed with 10 mL NS. 11:56 Patient has correct armband on for positive identification. Bed in low position. Call ph light in reach. Side rails up X 1. Pulse ox on. NIBP on. Door closed. Noise minimized. Warm blanket given. 12:27 No provider procedures requiring assistance completed. IV discontinued, intact, ph bleeding controlled, No redness/swelling at site. Pressure dressing applied. 12:27 EKG done, by ED staff, reviewed by Donald Gutierres MD. cc6 13:44 Timur Bustamante MD is Hospitalizing Provider. rt Administered Medications: 12:42 Drug: fentaNYL (PF) IVP 75 mcg IVP once Route: IVP; Site: right hand; ph 13:15 Follow up: Response: No adverse reaction; Pain is decreased; RASS: Alert and Calm (0) ph 12:43 Drug: Cefepime IVPB 2 grams IVPB at 200 ml/hr once over 30 mins; (mix in NS 100 mL) ph Route: IVPB; Rate: 200 ml/hr; Infused Over: 30 mins; Site: right hand; 19:13 Follow up: Response: No adverse reaction; IV Status: Completed infusion ph 13:14 Drug: vancoMYCIN IVPB 1 grams IVPB once over 2 hrs Route: IVPB; Infused Over: 2 hrs; ph Site: right hand; 15:15 Follow up: Response: No adverse reaction; IV Status: Completed infusion ph Medication: 11:56 VIS not applicable for this client. ph Outcome: 13:44 Decision to Hospitalize by Provider. rt 18:46 Patient left the ED. ph 18:46 Admitted to Med/surg accompanied by tech, family with patient, via wheelchair, with ph chart, 18:46 Condition: good 18:46 Instructed on the need for admit, Signatures: Dispatcher [employer] Annamaria Singleton RN RN ph Mera Saleh RN RN Donald Gutierres MD MD rt Julita Lynn cc6 Sonya Coelho sj2 Corrections: (The following items were deleted from the chart) 12: Condition: good ph ph 12: Discharged to home via wheelchair, with significant other, ph ph : Discharge instructions given to patient, Instructed on discharge instructions, ph follow up and referral plans. medication usage, Demonstrated understanding of instructions, follow-up care, medications, Prescriptions given X 1, ph 19:13 13:15 IV Status: Completed infusion ph ph
[2024-06-17] MEDS ORDERED: ONDANSETRON 4 MG/2 ML VIAL IV PRN (16:30)
--- NOTE | 2024-06-17 16:44 | P.HP ---
Certification for Inpatient Patient admitted to: Inpatient With expected LOS: >2 Midnights Patient will require the following post-hospital care: Rehabilitation Practitioner: I am a practitioner with admitting privileges, knowledge of patient current condition, hospital course, and medical plan of care. Services: Services provided to patient in accordance with Admission requirements found in Title 42 Section 412.3 of the Code of Federal Regulations Patient History Date of Service: 06/17/24 Reason for admission: Gangrene of the right foot History of Present Illness: Patient is a 64-year-old gentleman who presents to the emergency room with gangrene of the right foot. Patient has a history of diabetes and diabetic neuropathy. Patient was admitted to the hospital 2 weeks ago for gangrene of the fourth toe which required amputation. Patient was discharged home and he followed up with the vascular surgery and had a angiogram performed of the right leg. Patient states that the gangrene on the right foot has started spreading even prior to his angiogram day before yesterday-that was on June 15. Patient did not have any large vessel occlusion. Patient noted that his right foot was worsening so he decided to come into the emergency room. In the ER patient has significant gangrene to the right foot which extends into the metatarsal. Patient's third and fifth toe are involved as well as part of the metatarsal. Spoke with general surgery and plan is for possible amputation on Wednesday. Will continue with IV antibiotic therapy at this time. Will get cardiac clearance prior to surgery with consultation to batch roller operator. Currently, patient denies any significant chest pain and there is no EKG abnormality. Patient will be admitted for inpatient hospitalization. Allergies No Known Allergies Allergy (Verified 04/08/23 06:05) Home Medications: Insulin Detemir [Levemir] See Protocol SQ BID 04/15/22 Metoprolol Succinate [Toprol Xl*] 100 mg PO DAILY 04/15/22 Montelukast [Singulair*] 10 mg PO DAILY 04/15/22 Tamsulosin [Flomax*] 0.4 mg PO DAILY 04/15/22 Losartan/Hydrochlorothiazide [Losartan-Hctz 50-12.5 mg Tab] 1 tab PO DAILY #30 tab 04/16/22 Aspirin Chewable [Aspirin Chewable*] 81 mg PO DAILY 04/06/23 Clopidogrel Bisulfate [Plavix*] 75 mg PO DAILY 04/06/23 Empagliflozin [Jardiance] 25 mg PO DAILY 04/06/23 Rosuvastatin Calcium 5 mg PO DAILY 04/06/23 Insulin Glargine,Hum.rec.anlog [Lantus] unit SQ 05/30/24 Isosorbide Mononitrate [Isosorbide Mononitrate ER] 30 mg PO DAILY 05/30/24 Cephalexin [Keflex] 500 mg PO BID 7 Days #14 cap 06/03/24 traMADol HCL [Ultram*] 50 mg PO Q6H PRN 10 Days #20 tab 06/03/24 - Past Medical/Surgical History Diabetic: Yes -: HTN -: DM II -: CKD IIIb (Dr. Sauceda/ [facility]) -: BPH with LUTS -: Ulcerative colitis -: Left BKA 2013 -: Cardiac stents Psychosocial/ Personal History: Patient is disabled, lives at home with his daughter - Family History Mother Medical History: Heart disease, Diabetes Father Medical History: Heart disease - Social History Smoking Status: Former smoker Alcohol use: No CD- Drugs: No Caffeine use: Yes Review of Systems 10-point ROS is otherwise unremarkable Physical Examination - Vital Signs Temperature: 98 F Blood Pressure: 140/80 Pulse: 80 Respirations: 18 Pulse Ox (%): 95 - Physical Exam General: Alert, In no apparent distress, Oriented x3 HEENT: Atraumatic, PERRLA, Mucous membr. moist/pink, EOMI, Sclerae nonicteric Neck: Supple, 2+ carotid pulse no bruit, No LAD, Without JVD or thyroid abnormality Respiratory: Clear to auscultation bilaterally, Normal air movement Cardiovascular: Regular rate/rhythm, Normal S1 S2 Gastrointestinal: Normal bowel sounds, Soft and benign, Non-distended, No tenderness Musculoskeletal: No clubbing, No swelling, No tenderness Integumentary: No rashes Neurological: Normal speech, Normal tone, Normal affect, Abnormal gait, Abnormal strength, Abnormal sensation Lymphatics: No axilla or inguinal lymphadenopathy - Studies Laboratory Data (last 24 hrs) 06/17/24 06/17/24 06/17/24 11:45 11:45 11:45 WBC 6.40 Hgb 10.1 L Hct 31.9 L Plt Count 187 PT 13.5 H INR 1.21 APTT 36.0 Sodium 135 L Potassium 4.9 BUN 13 Creatinine 1.77 H Glucose 170 H Total Bilirubin 0.6 AST 25 ALT < 14 L Alkaline Phosphatase 103 Assessment & Plan - Problems (Diagnosis) (1) Gangrene of right foot Current Visit: Yes Status: Acute (2) Diabetic neuropathy Current Visit: Yes Status: Acute (3) Diabetes mellitus, type II Current Visit: No Status: Acute (4) HTN (hypertension) Current Visit: Yes Status: Acute (5) CKD (chronic kidney disease) stage 3, GFR 30-59 ml/min Current Visit: Yes Status: Acute (6) BPH (benign prostatic hyperplasia) Current Visit: Yes Status: Acute (7) Ulcerative colitis Current Visit: Yes Status: Acute - Plan Plan: 1. Patient with osteomyelitis of the right foot; continue with IV antibiotic therapy. N.p.o. for midnight for possible amputation. Cardiac clearance pending. Recent vascular surgery consultation for possible PAD; angiogram with no abnormality and no obvious obstruction 2. Type 2 diabetes with diabetic neuropathy; strict blood sugar control and continue with medication for neuropathic pain 3. History of hypertension; continue with strict blood pressure control 4. BPH; continue with Flomax 5. GI DVT prophylaxis Discharge Plan: Home Plan to discharge in: Greater than 2 days - Advance Directives Does patient have a Living Will: No Does patient have a Durable POA for Healthcare: No - Code Status/Comfort Care Code Status Assessed: Yes Code Status: Full Code Critical Care: No Time Spent Managing PTS Care (In Minutes): 45
--- NOTE | 2024-06-17 18:49 | RAD REPORT ---
EXAMINATION: CT Abdomen Pelvis Wo Contrast CLINICAL INDICATION: Male, 64 years old. abd mass TECHNIQUE: CT abdomen and pelvis was performed, without IV contrast, as per department protocol. Axia l, sagittal and coronal reconstructions were obtained. One or more of the following dose reduction techniques were used: Automated exposure control, adjustment of the mA and kV according to the patien t size, and iterative reconstruction. Unless otherwise specified, incidental findings do not require dedicated imaging follow-up. COMPARISON: 11/13/2022 FINDINGS: The lack of intravenous contrast limits the sensitivity of this exam for evaluation of solid visceral organs, vascular structures, and retroperitoneum. LOWER CHEST: The visualized lung bases are clear. LIVER: Normal in size and contour. No focal lesion. BILIARY SYSTEM: Suboptimal distention of the urinary bladder which limits evaluation. SPLEEN: Normal size. No focal lesion. PANCREAS: No mass, ductal dilation, or abisai-pancreatic fluid. ADRENALS: Normal; no mass. KIDNEYS AND URETERS: Normal size and contour. No hydronephrosis. URINARY BLADDER: Normal contour. GASTROINTESTINAL TRACT: No evidence of bowel obstruction, significant free fluid, free air or abscess . Mild distal colonic diverticulosis. APPENDIX: Normal appendix. LYMPH NODES: No lymphadenopathy. MUSCULOSKELETAL: No acute or suspicious osseous abnormality. ADDITIONAL FINDINGS: Small umbilical hernia containing fat. IMPRESSION: No acute or concerning abnormalities in the abdomen or pelvis, with evaluation limited by lack of IV contrast.
[2024-06-17 20:46] VITALS: BMI 29.0
[2024-06-17] MEDS: Ringers Lactate 1,000 ML IV SCH (21:28)
[2024-06-17] MEDS: INSULIN GLARGINE 100 UNIT/ML SQ SCH (21:30)
[2024-06-17] MEDS: VANCOMYCIN 1 GM in NA CHLORIDE 0.9% 250 ML IVPB ONE (21:30)
[2024-06-17] MEDS: HYDROCODONE/APAP 7.5/325 MG TAB PO PRN (21:31)
[2024-06-18 06:22] LABS: Absolute Basophils 0.1 K/uL (0-0.5); Absolute Eosinophils 0.1 K/uL (0-0.5); Absolute Lymphocytes (CBC) 2.5 K/uL (0.7-4.9); Absolute Monocytes 0.7 K/uL (0.1-1.3); Absolute Neutrophil 3.4 K/uL (1.8-8.0); Basophils % 0.8 % (0-1.3); Eosinophils % 2.1 % (0-4.4); Hematocrit 34.7 % (39.6-49.0); Hemoglobin 11.1 g/dL (13.6-17.9); MCH 27.3 pg (27.0-35.0); MCHC 32.1 g/dL (32.0-36.0); MCV 85.2 fL (80-100); MPV 9.2 fL (7.6-11.3); Monocytes % 10.9 % (3.3-12.3); Neutrophils % 49.2 % (41.7-73.7); Platelets 194 thou/uL (152-406); RBC Red Blood Cell Count 4.07 M/uL (4.33-5.43); Red Cell Distribution Width 15.3 % (12.1-15.2)
[2024-06-18 06:23] LABS: PT Prothrombin Time 13.5 SECONDS (9.4-12.5); PTT, Activated Partial Thromb 35.8 SECONDS (24.3-36.9); Protime INR 1.21
[2024-06-18 06:33] LABS: Albumin 2.6 g/dL (3.4-5.0); Albumin/Globulin Ratio 0.5 (1.1-1.8); Anion Gap 11.3 mEq/L (5.0-15.0); Bilirubin Total 0.8 mg/dL (0.2-1.0); Globulin 5.4 g/dL (2.3-3.5); Magnesium 2.1 mg/dL (1.6-2.4); Phosphorus 3.7 mg/dL (2.5-4.9); Potassium 4.3 mEq/L (3.5-5.1)
[2024-06-18] MEDS: PNEUMOCOCCAL VACCINE 0.5 ML IMVAC ONE (08:00)
--- NOTE | 2024-06-18 08:33 | RAD REPORT ---
Procedure: Chest Single View HISTORY: Preop COMPARISON: 2021 FINDINGS: The lungs appear clear of acute infiltrate. No significant pleural effusion noted. The heart is normal size. IMPRESSION: No acute abnormality is displayed.
[2024-06-18] MEDS: ENOXAPARIN 40 MG/0.4 ML SQ SCH (09:30)
[2024-06-18] MEDS: ISOSORBIDE MONO SR 30 MG TAB PO SCH (09:30)
[2024-06-18] MEDS: TAMSULOSIN 0.4 MG SR CAP PO SCH (09:30)
[2024-06-18] MEDS: ROSUVASTATIN 5 MG TAB PO SCH (09:30)
[2024-06-18] MEDS: METOPROLOL XL 50 MG TAB PO SCH (09:31)
--- NOTE | 2024-06-18 13:36 | P.CNS ---
Date of Consult: 06/18/24 Reason for Consult: CKD Stage III Requesting Physician: Timur Bustamante Chief Complaint: Gangrene of the right foot History of Present Illness: Patient is a 64-year-old pleasant male who is well known to me from clinic and who has had long standing chronic Type II DM with micro/macrovascular complications including CAD, PAD, CKD with nephropathy/albuminuria who presents to the emergency room with gangrene of the right foot, a worsening of the wound site after prior 4th toe amputation at this facility in the recent weeks. Pt reports recent OP peripheral angiogram, pt denies any intervention was performed and reports was no told that he had no laarge vessel occlusion. Pt denies pain of the foot or leg. He denies fevers or chills. He has been on OP Abx therapy with Keflex, no N/V/D Allergies No Known Allergies Allergy (Verified 04/08/23 06:05) Home Medications: Insulin Detemir [Levemir] See Protocol SQ BID 04/15/22 Metoprolol Succinate [Toprol Xl*] 100 mg PO DAILY 04/15/22 Montelukast [Singulair*] 10 mg PO DAILY 04/15/22 Tamsulosin [Flomax*] 0.4 mg PO DAILY 04/15/22 Losartan/Hydrochlorothiazide [Losartan-Hctz 50-12.5 mg Tab] 1 tab PO DAILY #30 t ab 04/16/22 Aspirin Chewable [Aspirin Chewable*] 81 mg PO DAILY 04/06/23 Clopidogrel Bisulfate [Plavix*] 75 mg PO DAILY 04/06/23 Empagliflozin [Jardiance] 25 mg PO DAILY 04/06/23 Rosuvastatin Calcium 5 mg PO DAILY 04/06/23 Insulin Glargine,Hum.rec.anlog [Lantus] 40 unit SQ 05/30/24 Isosorbide Mononitrate [Isosorbide Mononitrate ER] 30 mg PO DAILY 05/30/24 Cephalexin [Keflex] 500 mg PO BID 7 Days #14 cap 06/03/24 traMADol HCL [Ultram*] 50 mg PO Q6H PRN 10 Days #20 tab 06/03/24 Hydralazine HCl [Apresoline] 1 tab PO DAILY 06/17/24 Mesalamine [Apriso] 1.5 gm PO DAILY 06/18/24 - Past Medical/Surgical History Diabetic: Yes -: HTN -: DM II -: CKD IIIb (Dr. Sauceda/ [facility]) -: BPH with LUTS -: Ulcerative colitis -: Left BKA 2013 -: Cardiac stents Psychosocial/ Personal History: Patient is disabled, lives at home with his daughter - Family History Mother Medical History: Heart disease, Diabetes Father Medical History: Heart disease - Social History Smoking Status: Unknown if ever smoked Alcohol use: No CD- Drugs: No Caffeine use: Yes Place of Residence: Home Review of Systems General: Unremarkable Eyes: Unremarkable ENT: Unremarkable Respiratory: Unremarkable Cardiovascular: Unremarkable Gastrointestinal: Unremarkable Genitourinary: Unremarkable Musculoskeletal: As per HPI Integumentary: Unremarkable Neurological: Unremarkable Physical Examination Temp Pulse Resp BP Pulse Ox 97.5 F 92 H 16 161/75 H 94 06/18/24 08:00 06/18/24 09:31 06/18/24 13:13 06/18/24 09:31 06/18/24 13:13 General: Alert, In no apparent distress, Cooperative HEENT: Atraumatic, Normocephalic Neck: Supple Respiratory: Clear to auscultation bilaterally, Normal air movement Cardiovascular: No edema, Regular rate/rhythm Gastrointestinal: Soft and benign, Non-distended, No tenderness Musculoskeletal: No contractures, Other (Lt BKA, Rt foot 4th toe amputation, some gangrene of wound bed, dressing in place so limited exam performed) Integumentary: Other (Xerosis, stasis dermatitis) Neurological: Normal speech, Normal tone, Normal affect Conclusions/Impression: Underlying CKD Stage IIIb, Cr level on admission is within baseline range but has long fluctuated on a regimen off HAROON inhibitors, diuretics/other 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 No signs of hypervolemia DM II with CKD -Strict control of DM needed, weight/A1c had improved sig on GLP-1 RA overall but pt with other complications including PAD/DFU Right 4th toe gangrene with foot cellulitis s/p amputation 10-30-24 Staph bacteremia, leukocytosis then Now with poor healing, gangrene of the wound site -F/u plan per surgery or Podiatry. Cont Abx coverage. Request OP peripheral angiogram report
[2024-06-18] MEDS: VANCOMYCIN 1.5 GM in NA CHLORIDE 0.9% 250 ML IVPB SCH (18:04)
[2024-06-18] MEDS: HYDRALAZINE HCL 25 MG TABLET PO SCH (20:57)
[2024-06-19] MEDS: NA CHLORIDE 0.9% 1,000 ML ONE (11:58)
[2024-06-19] MEDS: BUPIVACAINE 0.75% (PF) 2 ML SP ONE (12:20)
[2024-06-19] MEDS ORDERED: MIDAZOLAM HCL 2 MG/2 ML INJ ONE (12:34)
[2024-06-19] MEDS ORDERED: FENTANYL CITR 100 MCG/2 ML ONE (12:34)
[2024-06-19] MEDS ORDERED: propofoL 200 MG/20 ML VIAL IV ONE (12:35)
[2024-06-19] MEDS ORDERED: ONDANSETRON 4 MG/2 ML VIAL ONE (13:21)
[2024-06-19] MEDS ORDERED: dexAMETHasone 4 MG/ML VIAL ONE (13:21)
[2024-06-19] MEDS ORDERED: EPHEDRINE SULF 50 MG/ML VIAL ONE (13:38)
--- NOTE | 2024-06-19 13:57 | CON ---
Date of Consultation: 06/19/2024 Reason For Service: Gangrene of the right foot. History Of Present Illness: This is a case of a 64-year-old patient with history of peripheral vascu lar disease, in the past had amputation below-knee of the left side, now come with a new onset gangre ne of the right foot. The fourth toe was removed recently due to a wet gangrene that gave him a time to let the rest of the foot delineate and also have vascular procedures done trying to improve the l ess chance of gangrene, but still came to the hospital with right foot gangrenous changes moving prox imal fast and I was consulted for right below-knee amputation. Allergies: NONE. Medications: Reviewed including insulin, Flomax, Singulair, Toprol, Plavix, Lantus, Keflex, Ultram. Past Medical Problems: Hypertension, diabetes, chronic kidney disease, BPH, ulcerative colitis. Past Surgical History: Include cardiac stents and BKA. Family History: Diabetes and heart disease. Social History: He is a former smoker. He does not smoke anymore. He does not drink alcohol. Review of Systems: The right foot with tenderness and gangrenous changes. No shortness of breath. No chest pain. Review of Systems: Ten points otherwise unremarkable. Physical Examination: Vital Signs: Reviewed. General: Patient is awake, alert. No distress. HEENT: Pupils are equal and reactive. Anicteric. Neck: Supple. Chest: Clear. Heart: S1, S2. Abdomen: Soft and depressible. No guarding or rebound. Integumentary and Extremities: Over the right foot, patient has gangrenous changes to the mid foot r egion with gangrene showing a combination of wet and dry gangrene, that includes multiple digits and distal foot. Laboratory Data: Blood work shows WBC count of 6.9, hemoglobin of 11.1, and platelets of 194 with an INR of 1.21 and creatinine is 1.7. Chloride is 105, potassium is 4.3. Assessment: This is a 64-year-old patient with gangrene of the right foot, vascular pulses down ther e are not insistent, even though he has recently a vascular procedure trying to improve his vasculari zation. I do not believe that it is a waste of time. I believe that will improve his chances of hea ling below-knee amputation better, so he can use his prosthetic and ambulate as the goal of this is. He understands the benefits, alternatives, and risks of a below-knee amputation which include, but n ot limited to, infection, bleeding, damage to adjacent structures, anesthesia complication, nonhealin g wound, DE, and even . He also understands the importance of following doctor's recommendation s, rehabilitation, and controlling his diabetes. PEE/MODL Voice ID: [id number] Report ID: [id number]
--- NOTE | 2024-06-19 14:26 | P.BOP ---
Preoperative diagnosis: Right foot gangrene Postoperative diagnosis: same Primary procedure: R BKA Estimated blood loss: <75cc Specimen: foot Findings: as above Anesthesia: Spinal Complications: None Drain(s): FLAVIO drain Transferred to: Recovery Room Condition: Good
--- NOTE | 2024-06-19 17:25 | EKG ---
Test Date: 2024-06-17 Test Time: 12:23:11 Emergency Vehicle Operator: VALERIA MEASUREMENT RESULTS: Intervals: Rate: 86 [place]: 148 QRSD: 72 QT: 364 QTc: 435 [place]: P: 50 [place]: 148 QRS: 86 T: 70 INTERPRETIVE STATEMENTS: Normal sinus rhythm Normal ECG Compared to ECG 05/30/2024 11:27:49 Sinus tachycardia no longer present Right-axis deviation no longer present Electronically Signed On 06-19-24 17:21:45 STOVE TENDER by Alli Lynn
[2024-06-19] MEDS ORDERED: VANCOMYCIN 1.5 GM in NA CHLORIDE 0.9% 500 ML IVPB SCH (18:00)
--- NOTE | 2024-06-19 19:27 | OP ---
Date of Procedure: 06/19/2024 Surgeon: Jesus Parrish MD Preoperative Diagnoses: Right foot gangrene, peripheral vascular disease, diabetes. Postoperative Diagnoses: Right foot gangrene, peripheral vascular disease, diabetes. Procedure: Right below-knee amputation. Estimated Blood Loss: Less than 75 cc. Specimen: Foot. Findings: As above. Anesthesia: Spinal. Complications: None. Drains: FLAVIO #10. Indications: This is a case of a 64-year-old patient who came to us with gangrene on the right foot. The benefits, alternatives, and risks of a below-knee amputation fully explained to the patient whi ch include, but not limited to, infection, bleeding, damage to adjacent structures, anesthesia compli cation, nonhealing of flaps, TN, and even . He also understands this may not relieve any sympto ms. He might need more than one surgical intervention. He understood, signed a consent. Description Of Procedure: The area of concern was marked by me and the patient in the holding room. Patient was brought to the operating room, placed in supine position. Anesthesia was given without complication. The right leg was prepped and draped in the usual sterile fashion. The anterior and p osterior skin incision was outlined with a marking pen. The anterior incision was made about 12 cm b elow the tibial tuberosity and extended medially. This was extended about 15 cm in each side. The s kin and subcutaneous tissue were incised with the help of the knife and then Bovie cauterizer and sap henous veins were ligated. The fascia and the muscle were then divided with the Bovie cauterizer at the same level of the anterior skin incision. The muscles of the anterior and lateral compartments w ere divided exposing the anterior tibial vessels which were ligated. Interosseous membrane was incis ed. The tibial periosteum was incised circumferentially with Bovie cauterizer at the same level of t he muscle division. The periosteum elevator was used and the periosteum was stripped proximally abou t 2 cm. The tibia was transected then with a Gigli saw proximal to the skin incision with an anterio r bevel. The fibula was exposed, dissected circumferentially and transected with a bone cutter about 2 cm proximal to the tibia. The amputation was then completed with the help of a Bovie cauterizer t ransecting the muscle and the gastrocnemius muscle. After irrigation was done, we proceeded to file the bone, put a FLAVIO drain on the side with 3-0 nylon to secure it. The fascia of the anterior and pos terior muscle flaps were approximated with the help of #1 Vicryl and the skin was approximated with t he zeyad. Sponge counts and instrument counts were correct. Sterile dressing was placed over the area. Patient was sent to Recovery in stable condition. PEE/REON Voice ID: [id number] Report ID: [id number]
[2024-06-19] MEDS: FENTANYL CITR 100 MCG/2 ML IV PRN (20:02)
[2024-06-19] MEDS: AMINO ACIDS/PROTEIN HYDROLYS 30 ML LIQUID.PKT PO SCH (20:02)
--- NOTE | 2024-06-19 22:01 | P.PN ---
Date of Service: 06/19/24 Vital Signs Temp Pulse Resp BP Pulse Ox 98.2 F 93 H 18 163/71 H 94 06/19/24 20:00 06/19/24 20:00 06/19/24 20:02 06/19/24 20:00 06/19/24 20:02 Medications Acetaminophen (Acetaminophen 500 Mg Tab) 500 mg PO Q4HP PRN PRN Reason: Pain scale 2-4 (Mild)/Fever Hydrocodone Bitart/Acetaminophen (Hydrocodone/Apap 7.5/325 Mg Tab) 1 tab PO Q4H PRN PRN Reason: Pain scale 5-7 (Moderate) Last Admin: 06/19/24 17:34 Dose: 1 tab Amino Acids (Amino Acids/Protein Hydrolys 30 Ml Liquid.Pkt) 30 ml PO BID [facility] Last Admin: 06/19/24 20:02 Dose: 30 ml Enoxaparin Sodium (Enoxaparin 40 Mg/0.4 Ml) 40 mg SQ DAILY [facility] Last Admin: 06/19/24 07:44 Dose: Not Given Fentanyl Citrate (Fentanyl Citr 100 Mcg/2 Ml) 25 mcg IV Q4H PRN PRN Reason: Pain scale 8-10 (Severe) Last Admin: 06/19/24 20:02 Dose: 25 mcg Hydralazine HCl (Hydralazine Hcl 25 Mg Tablet) 25 mg PO BID [facility] Last Admin: 06/19/24 20:02 Dose: 25 mg Vancomycin HCl 1.5 gm/ Sodium (Chloride) 500 mls @ 250 mls/hr IVPB Q36H [facility]; Protocol Insulin Glargine (Insulin Glargine 100 Unit/Ml) 20 unit SQ 30 MIN BEFORE HS [facility] Last Admin: 06/19/24 20:02 Dose: 20 unit Isosorbide Mononitrate (Isosorbide [place] Sr 30 Mg Tab) 30 mg PO DAILY [facility] Last Admin: 06/19/24 07:42 Dose: 30 mg Metoprolol Succinate (Metoprolol Xl 50 Mg Tab) 50 mg PO DAILY [facility] Last Admin: 06/19/24 07:43 Dose: 50 mg Ondansetron HCl (Ondansetron 4 Mg/2 Ml Vial) 4 mg IV Q6HP PRN PRN Reason: NAUSEA / VOMITING Rosuvastatin Calcium (Rosuvastatin 5 Mg Tab) 5 mg PO DAILY [facility] Last Admin: 06/19/24 07:42 Dose: 5 mg Tamsulosin HCl (Tamsulosin 0.4 Mg Sr Cap) 0.4 mg PO DAILY [facility] Last Admin: 06/19/24 07:42 Dose: 0.4 mg Microbiology Results 06/17/24 12:00 Blood - Blood Aerobic Blood Culture - Preliminary No growth in 24 hours. 06/17/24 12:00 Blood - Blood Anaerobic Blood Culture - Preliminary No growth in 24 hours. 06/17/24 11:45 Blood - Blood Aerobic Blood Culture - Preliminary No growth in 24 hours. 06/17/24 11:45 Blood - Blood Anaerobic Blood Culture - Preliminary No growth in 24 hours. Assessment/ Plan: Nephrology No dyspnea No chest pain No acute events overnight Vitals, medications, blood work and imaging reviewed in the chart General: Alert, In no apparent distress, Cooperative HEENT: Atraumatic, Normocephalic Neck: Supple Respiratory: Clear to auscultation bilaterally, Normal air movement Cardiovascular: No edema, Regular rate/rhythm Gastrointestinal: Soft and benign, Non-distended, No tenderness Musculoskeletal: No contractures, Other (Lt BKA, Rt foot 4th toe amputation, some gangrene of wound bed, dressing in place so limited exam performed) Integumentary: Other (Xerosis, stasis dermatitis) Neurological: Normal speech, Normal tone, Normal affect Conclusions/Impression: CKD IIIb -No NSAIDs HTN with CKD -Continue Hydralazine DM II with CKD, Polyneuropathy and Peripheral Angiopathy -RISS prn PAD Right foot gangrene -Continue Abx -Wound care as ordered -Follow up with surgery Hypoalbuminemia -Recommend protein supplementation BPH with LUTS -Continue tamsulosin Hospitalist note reviewed
[2024-06-20 03:35] LABS: Absolute Monocytes 0.2 K/uL (0.1-1.3); Basophils % 0.4 % (0-1.3); Hematocrit 33.2 % (39.6-49.0); Hemoglobin 10.7 g/dL (13.6-17.9); MCH 27.1 pg (27.0-35.0); MCHC 32.1 g/dL (32.0-36.0); MCV 84.5 fL (80-100); MPV 9.5 fL (7.6-11.3); Neutrophils % 85.6 % (41.7-73.7); Platelets 175 thou/uL (152-406); RBC Red Blood Cell Count 3.93 M/uL (4.33-5.43); Red Cell Distribution Width 14.9 % (12.1-15.2)
[2024-06-20 03:43] LABS: Anion Gap 12.7 mEq/L (5.0-15.0); Potassium 4.7 mEq/L (3.5-5.1)
[2024-06-20 04:32] LABS: Band Neutrophils 5 % (0-1); Differential Total Cells Count 100; Lymphocytes 11 % (15-42); Monocytes 0 % (0-10); Reactive Lymphocytes 2 %; Segmented Neutrophils 82 % (40-80)
[2024-06-20 04:33] LABS: Blood Morphology Comment NOT SEEN (NOT SEEN); Platelet Estimate ADEQ
[2024-06-20] MEDS: VANCOMYCIN 1.5 GM in NA CHLORIDE 0.9% 500 ML IVPB SCH (04:57)
--- NOTE | 2024-06-20 08:12 | ECHO ---
HEIGHT: 5 ft 7 in WEIGHT: 185 lb 0 oz DATE OF STUDY: REFER DR: Timur Bustamante MD 2-DIMENSIONAL: YES M.MODE: YES DOPPLER: YES COLOR FLOW: YES TDS: NO PORTABLE: YES DEFINITY: NO BUBBLE STUDY: NO DIAGNOSIS: CARDIAC CLEARANCE CARDIAC HISTORY: CATHERIZATION: SURGERY: PROSTHETIC VALVE: PACEMAKER: MEASUREMENTS (cm) DIASTOLIC (NORMALS) SYSTOLIC (NORMALS) IVSd 1.2 (0.6-1.2) LA Diam 3.7 (1.9-4.0) LVEF 77% LVIDd 2.7 (3.5-5.7) LVIDs 1.5 (2.0-3.5) %FS 44% LVPWd 1.2 (0.6-1.2) Ao Diam 2.6 (2.0-3.7) 2 DIMENSIONAL ASSESSMENT: RIGHT ATRIUM: NORMAL LEFT ATRIUM: NORMAL RIGHT VENTRICLE: NORMAL LEFT VENTRICLE: NORMAL TRICUSPID VALVE: NORMAL MITRAL VALVE: MILD MITRAL REGURGITATION PULMONIC VALVE: NORMAL AORTIC VALVE: NORMAL PERICARDIAL EFFUSION: NONE AORTIC ROOT: NORMAL LEFT VENTRICULAR WALL MOTION: NORMAL. DOPPLER/COLOR FLOW: SEE BELOW. COMMENTS: 1. NORMAL LEFT VENTRICULAR EJECTION FRACTION 60-65%. 2. NORMAL WALL MOTION. 3. GRADE I DIASTOLIC DYSFUNCTION. 4. MILD MITRAL REGURGITATION. TECHNOLOGIST: BRUNILDA KRUSE
--- NOTE | 2024-06-20 13:12 | P.CNS ---
Date of Consult: 06/20/24 Chief Complaint: Gangrene of the right foot History of Present Illness: Patient with PMH of CAD s/p PCI done by Dr. Holbrook, PAD follows up with Dr. Molina, presented with foot gangrene s/p amputation, denies any complaints. Allergies No Known Allergies Allergy (Verified 04/08/23 06:05) Home medications list reviewed: Yes Home Medications: Insulin Detemir [Levemir] See Protocol SQ BID 04/15/22 Metoprolol Succinate [Toprol Xl*] 100 mg PO DAILY 04/15/22 Montelukast [Singulair*] 10 mg PO DAILY 04/15/22 Tamsulosin [Flomax*] 0.4 mg PO DAILY 04/15/22 Losartan/Hydrochlorothiazide [Losartan-Hctz 50-12.5 mg Tab] 1 tab PO DAILY #30 tab 04/16/22 Aspirin Chewable [Aspirin Chewable*] 81 mg PO DAILY 04/06/23 Clopidogrel Bisulfate [Plavix*] 75 mg PO DAILY 04/06/23 Empagliflozin [Jardiance] 25 mg PO DAILY 04/06/23 Rosuvastatin Calcium 5 mg PO DAILY 04/06/23 Insulin Glargine,Hum.rec.anlog [Lantus] 40 unit SQ 05/30/24 Isosorbide Mononitrate [Isosorbide Mononitrate ER] 30 mg PO DAILY 05/30/24 Cephalexin [Keflex] 500 mg PO BID 7 Days #14 cap 06/03/24 traMADol HCL [Ultram*] 50 mg PO Q6H PRN 10 Days #20 tab 06/03/24 Hydralazine HCl [Apresoline] 1 tab PO DAILY 06/17/24 Mesalamine [Apriso] 1.5 gm PO DAILY 06/18/24 - Past Medical/Surgical History Diabetic: Yes -: HTN -: DM II -: CKD IIIb (Dr. Sauceda/ [place]) -: BPH with LUTS -: Ulcerative colitis -: Left BKA 2013 -: Cardiac stents Psychosocial/ Personal History: Patient is disabled, lives at home with his daughter - Family History Mother Medical History: Heart disease, Diabetes Father Medical History: Heart disease - Social History Smoking Status: Unknown if ever smoked Alcohol use: No CD- Drugs: No Caffeine use: Yes Place of Residence: Home Review of Systems 10-point ROS is otherwise unremarkable Physical Examination Temp Pulse Resp BP Pulse Ox 98 F 81 14 191/82 H 98 06/20/24 08:00 06/20/24 08:54 06/20/24 11:39 06/20/24 08:54 06/20/24 11:39 General: Alert, In no apparent distress HEENT: Atraumatic, PERRLA, Mucous membr. moist/pink, EOMI, Sclerae nonicteric Neck: Supple, 2+ carotid pulse no bruit, No LAD, Without JVD or thyroid abnormality Respiratory: Clear to auscultation bilaterally, Normal air movement Cardiovascular: Regular rate/rhythm, Normal S1 S2 Gastrointestinal: Normal bowel sounds, No tenderness Musculoskeletal: No tenderness Integumentary: No rashes Neurological: Normal gait, Normal speech, Normal tone, Normal affect Lymphatics: No axilla or inguinal lymphadenopathy - Problems (1) CAD (coronary artery disease) Current Visit: Yes Status: Acute Plan: no chest pain, echo is normal continue ASA and Plavix continue statins continue to follow up with outpatient architect.
--- NOTE | 2024-06-20 20:58 | P.PN ---
Date of Service: 06/20/24 Vital Signs Temp Pulse Resp BP Pulse Ox 98.1 F 74 16 158/72 H 98 06/20/24 16:00 06/20/24 16:00 06/20/24 18:51 06/20/24 16:00 06/20/24 18:51 Medications Acetaminophen (Acetaminophen 500 Mg Tab) 500 mg PO Q4HP PRN PRN Reason: Pain scale 2-4 (Mild)/Fever Hydrocodone Bitart/Acetaminophen (Hydrocodone/Apap 7.5/325 Mg Tab) 1 tab PO Q4H PRN PRN Reason: Pain scale 5-7 (Moderate) Last Admin: 06/20/24 15:53 Dose: 1 tab Amino Acids (Amino Acids/Protein Hydrolys 30 Ml Liquid.Pkt) 30 ml PO BID [facility] Last Admin: 06/20/24 09:00 Dose: Not Given Enoxaparin Sodium (Enoxaparin 40 Mg/0.4 Ml) 40 mg SQ DAILY [facility] Last Admin: 06/20/24 08:53 Dose: 40 mg Fentanyl Citrate (Fentanyl Citr 100 Mcg/2 Ml) 25 mcg IV Q4H PRN PRN Reason: Pain scale 8-10 (Severe) Last Admin: 06/20/24 18:51 Dose: 25 mcg Hydralazine HCl (Hydralazine Hcl 25 Mg Tablet) 25 mg PO BID [facility] Last Admin: 06/20/24 08:54 Dose: 25 mg Vancomycin HCl 1.5 gm/ Sodium (Chloride) 500 mls @ 250 mls/hr IVPB Q36H [facility]; Protocol Last Admin: 06/20/24 04:57 Dose: 500 mls Insulin Glargine (Insulin Glargine 100 Unit/Ml) 20 unit SQ 30 MIN BEFORE HS [facility] Last Admin: 06/19/24 20:02 Dose: 20 unit Isosorbide Mononitrate (Isosorbide [place] Sr 30 Mg Tab) 30 mg PO DAILY [facility] Last Admin: 06/20/24 08:53 Dose: 30 mg Melatonin (Melatonin 3 Mg Tablet) 3 mg PO BEDTIME PRN PRN PRN Reason: INSOMNIA Metoprolol Succinate (Metoprolol Xl 50 Mg Tab) 50 mg PO DAILY [facility] Last Admin: 06/20/24 08:54 Dose: 50 mg Ondansetron HCl (Ondansetron 4 Mg/2 Ml Vial) 4 mg IV Q6HP PRN PRN Reason: NAUSEA / VOMITING Rosuvastatin Calcium (Rosuvastatin 5 Mg Tab) 5 mg PO DAILY [facility] Last Admin: 06/20/24 09:08 Dose: 5 mg Tamsulosin HCl (Tamsulosin 0.4 Mg Sr Cap) 0.4 mg PO DAILY [facility] Last Admin: 06/20/24 08:53 Dose: 0.4 mg Microbiology Results 06/17/24 12:00 Blood - Blood Aerobic Blood Culture - Preliminary No growth in 24 hours. 06/17/24 12:00 Blood - Blood Anaerobic Blood Culture - Preliminary No growth in 24 hours. 06/17/24 11:45 Blood - Blood Aerobic Blood Culture - Preliminary No growth in 24 hours. 06/17/24 11:45 Blood - Blood Anaerobic Blood Culture - Preliminary No growth in 24 hours. Assessment/ Plan: Nephrology No dyspnea No chest pain Reports severe RLE pain Difficulty with urination No acute events overnight Vitals, medications, blood work and imaging reviewed in the chart General: Alert, In no apparent distress, Cooperative HEENT: Atraumatic, Normocephalic Neck: Supple Respiratory: Clear to auscultation bilaterally, Normal air movement Cardiovascular: No edema, Regular rate/rhythm Gastrointestinal: Soft and benign, Non-distended, No tenderness Musculoskeletal: No contractures, Other (Lt BKA, Rt foot 4th toe amputation, some gangrene of wound bed, dressing in place so limited exam performed) Integumentary: Other (Xerosis, stasis dermatitis) Neurological: Normal speech, Normal tone, Normal affect Conclusions/Impression: CKD IIIb -No NSAIDs HTN with CKD -Continue Hydralazine DM II with CKD, Polyneuropathy and Peripheral Angiopathy -RISS prn PAD Right foot gangrene -Continue Abx -Wound care as ordered -Follow up with surgery sp Right BKA 06-20-24 Hypoalbuminemia -Recommend protein supplementation BPH with LUTS Urinary Retention -Increase tamsulosin bid Hospitalist note reviewed
[2024-06-20] MEDS: MELATONIN 3 MG TABLET PO PRN (21:11)
[2024-06-20] MEDS: TAMSULOSIN 0.4 MG SR CAP PO SCH (21:21)
--- NOTE | 2024-06-21 06:10 | P.PN ---
Date of Service: 06/18/24 Subjective Patient continues to improve. Patient status post surgery. Clinical symptoms are improving. Physical Examination - Vital Signs reviewed - Physical Exam General: Alert, In no apparent distress, Oriented x3 Respiratory: Clear to auscultation bilaterally Cardiovascular: Regular rate/rhythm, Normal S1 S2 Gastrointestinal: Normal bowel sounds, Soft and benign, Non-distended, No tenderness Musculoskeletal: No clubbing, No swelling, No tenderness; left AKA; right BKA Integumentary: No rashes Neurological: No focal deficits Assessment & Plan - Problems (Diagnosis) (1) Gangrene of right foot s/p right BKA Current Visit: Yes Status: Acute (2) Diabetic neuropathy Current Visit: Yes Status: Acute (3) Diabetes mellitus, type II Current Visit: No Status: Acute (4) HTN (hypertension) Current Visit: Yes Status: Acute (5) CKD (chronic kidney disease) stage 3, GFR 30-59 ml/min Current Visit: Yes Status: Acute (6) BPH (benign prostatic hyperplasia) Current Visit: Yes Status: Acute (7) Ulcerative colitis Current Visit: Yes Status: Acute - Plan Continue with plan of care as mentioned below: 1. Patient with osteomyelitis of the right foot s/p BKA; continue with IV antibiotic therapy. s/p amputation. 2. Type 2 diabetes with diabetic neuropathy; strict blood sugar control and continue with medication for neuropathic pain 3. History of hypertension; continue with strict blood pressure control 4. BPH; continue with Flomax 5. GI DVT prophylaxis Discharge Plan: Home Plan to discharge in: Greater than 2 days - Advance Directives Does patient have a Living Will: No Does patient have a Durable POA for Healthcare: No - Code Status/Comfort Care Code Status Assessed: Yes Code Status: Full Code Critical Care: No Time Spent Managing PTS Care (In Minutes): 45
--- NOTE | 2024-06-21 06:11 | P.PN ---
Date of Service: 06/19/24 Subjective Patient denies any new complaints. Patient's clinical symptoms are stable. Patient denies any new complaints. Physical Examination - Vital Signs reviewed - Physical Exam General: Alert, In no apparent distress, Oriented x3 Respiratory: Clear to auscultation bilaterally Cardiovascular: Regular rate/rhythm, Normal S1 S2 Gastrointestinal: Normal bowel sounds, Soft and benign, Non-distended, No tenderness Musculoskeletal: No clubbing, No swelling, No tenderness; left AKA; right BKA Integumentary: No rashes Neurological: No focal deficits Assessment & Plan - Problems (Diagnosis) (1) Gangrene of right foot s/p right BKA Current Visit: Yes Status: Acute (2) Diabetic neuropathy Current Visit: Yes Status: Acute (3) Diabetes mellitus, type II Current Visit: No Status: Acute (4) HTN (hypertension) Current Visit: Yes Status: Acute (5) CKD (chronic kidney disease) stage 3, GFR 30-59 ml/min Current Visit: Yes Status: Acute (6) BPH (benign prostatic hyperplasia) Current Visit: Yes Status: Acute (7) Ulcerative colitis Current Visit: Yes Status: Acute - Plan Continue with plan of care as mentioned below: 1. Patient with osteomyelitis of the right foot s/p BKA; continue with IV antibiotic therapy. s/p amputation. awaiting PT and hoping for IPR 2. Type 2 diabetes with diabetic neuropathy; strict blood sugar control and continue with medication for neuropathic pain 3. History of hypertension; continue with strict blood pressure control 4. BPH; continue with Flomax 5. GI DVT prophylaxis Discharge Plan: Home Plan to discharge in: Greater than 2 days - Advance Directives Does patient have a Living Will: No Does patient have a Durable POA for Healthcare: No - Code Status/Comfort Care Code Status Assessed: Yes Code Status: Full Code Critical Care: No Time Spent Managing PTS Care (In Minutes): 45
--- NOTE | 2024-06-21 06:12 | P.PN ---
Date of Service: 06/20/24 Subjective Patient has been doing well and patient denies any new complaints. Clinical symptoms are stable. Physical Examination - Vital Signs reviewed - Physical Exam General: Alert, In no apparent distress, Oriented x3 Respiratory: Clear to auscultation bilaterally Cardiovascular: Regular rate/rhythm, Normal S1 S2 Gastrointestinal: Normal bowel sounds, Soft and benign, Non-distended, No tenderness Musculoskeletal: No clubbing, No swelling, No tenderness; left AKA; right BKA Integumentary: No rashes Neurological: No focal deficits Assessment & Plan - Problems (Diagnosis) (1) 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 1. Patient with osteomyelitis of the right foot s/p BKA; continue with IV antibiotic therapy. s/p amputation. awaiting PT and hoping for IPR 2. Type 2 diabetes with diabetic neuropathy; strict blood sugar control and continue with medication for neuropathic pain 3. History of hypertension; continue with strict blood pressure control 4. BPH; continue with Flomax 5. GI DVT prophylaxis Discharge Plan: Home Plan to discharge in: Greater than 2 days - Advance Directives Does patient have a Living Will: No Does patient have a Durable POA for Healthcare: No - Code Status/Comfort Care Code Status Assessed: Yes Code Status: Full Code Critical Care: No Time Spent Managing PTS Care (In Minutes): 45
[2024-06-21] MEDS: HYDROMORPHONE HCL 1 MG/ML INJ IV ONE (08:55)
[2024-06-21] MEDS: DOCUSATE NA 100 MG CAP PO SCH (09:30)
--- NOTE | 2024-06-21 10:06 | P.PN ---
Date of Service: 06/21/24 Subjective Patient has been doing well and patient denies any new complaints. Clinical symptoms are stable. He is having some phantom pain. Will give one dose Dilaudid and reassess Physical Examination - Vital Signs reviewed - Physical Exam General: Alert, In no apparent distress, Oriented x3 Respiratory: Clear to auscultation bilaterally Cardiovascular: Regular rate/rhythm, Normal S1 S2 Gastrointestinal: Normal bowel sounds, Soft and benign, Non-distended, No tenderness Musculoskeletal: No clubbing, No swelling, No tenderness; left AKA; right BKA Integumentary: No rashes Neurological: No focal deficits Assessment & Plan - Problems (Diagnosis) (1) 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 1. Continue with IV antibiotic therapy. s/p amputation. FLAVIO drain with 100ml serous fluid. awaiting PT and hoping for IPR 2. Type 2 diabetes with diabetic neuropathy; strict blood sugar control and continue with medication for neuropathic pain 3. History of hypertension; continue with strict blood pressure control 4. BPH; continue with Flomax - scheduled BID per Dr. Mahmood 5. GI DVT prophylaxis Discharge Plan: Home Plan to discharge in: Greater than 2 days - Advance Directives Does patient have a Living Will: No Does patient have a Durable POA for Healthcare: No - Code Status/Comfort Care Code Status Assessed: Yes Code Status: Full Code Critical Care: No Time Spent Managing PTS Care (In Minutes): 45
[2024-06-21] MEDS: HYDRALAZINE HCL 25 MG TABLET PO SCH (21:21)
--- NOTE | 2024-06-21 21:58 | P.PN ---
Date of Service: 06/21/24 Vital Signs Temp Pulse Resp BP Pulse Ox 97.4 F 71 18 119/58 L 97 06/21/24 20:00 06/21/24 20:00 06/21/24 21:21 06/21/24 20:00 06/21/24 21:21 Medications Acetaminophen (Acetaminophen 500 Mg Tab) 500 mg PO Q4HP PRN PRN Reason: Pain scale 2-4 (Mild)/Fever Hydrocodone Bitart/Acetaminophen (Hydrocodone/Apap 7.5/325 Mg Tab) 1 tab PO Q4H PRN PRN Reason: Pain scale 5-7 (Moderate) Last Admin: 06/21/24 21:21 Dose: 1 tab Amino Acids (Amino Acids/Protein Hydrolys 30 Ml Liquid.Pkt) 30 ml PO BID [facility] Last Admin: 06/21/24 21:00 Dose: 30 ml Docusate Sodium (Docusate Na 100 Mg Cap) 100 mg PO BID [facility] Last Admin: 06/21/24 21:21 Dose: 100 mg Enoxaparin Sodium (Enoxaparin 40 Mg/0.4 Ml) 40 mg SQ DAILY [facility] Last Admin: 06/21/24 08:57 Dose: 40 mg Fentanyl Citrate (Fentanyl Citr 100 Mcg/2 Ml) 25 mcg IV Q4H PRN PRN Reason: Pain scale 8-10 (Severe) Last Admin: 06/21/24 17:18 Dose: 25 mcg Hydralazine HCl (Hydralazine Hcl 25 Mg Tablet) 25 mg PO BID [facility] Last Admin: 06/21/24 21:21 Dose: 25 mg Vancomycin HCl 1.5 gm/ Sodium (Chloride) 500 mls @ 250 mls/hr IVPB Q36H [facility]; Protocol Last Admin: 06/21/24 17:18 Dose: 500 mls Insulin Glargine (Insulin Glargine 100 Unit/Ml) 20 unit SQ 30 MIN BEFORE HS [facility] Last Admin: 06/21/24 21:22 Dose: 20 unit Isosorbide Mononitrate (Isosorbide [place] Sr 30 Mg Tab) 30 mg PO DAILY [facility] Last Admin: 06/21/24 08:56 Dose: 30 mg Melatonin (Melatonin 3 Mg Tablet) 3 mg PO BEDTIME PRN PRN PRN Reason: INSOMNIA Last Admin: 06/21/24 21:21 Dose: 3 mg Metoprolol Succinate (Metoprolol Xl 50 Mg Tab) 50 mg PO DAILY [facility] Last Admin: 06/21/24 08:56 Dose: 50 mg Ondansetron HCl (Ondansetron 4 Mg/2 Ml Vial) 4 mg IV Q6HP PRN PRN Reason: NAUSEA / VOMITING Rosuvastatin Calcium (Rosuvastatin 5 Mg Tab) 5 mg PO DAILY [facility] Last Admin: 06/21/24 08:56 Dose: 5 mg Tamsulosin HCl (Tamsulosin 0.4 Mg Sr Cap) 0.4 mg PO BID [facility] Last Admin: 06/21/24 21:21 Dose: 0.4 mg Microbiology Results 06/17/24 12:00 Blood - Blood Aerobic Blood Culture - Preliminary No growth in 24 hours. 06/17/24 12:00 Blood - Blood Anaerobic Blood Culture - Preliminary No growth in 24 hours. 06/17/24 11:45 Blood - Blood Aerobic Blood Culture - Preliminary No growth in 24 hours. 06/17/24 11:45 Blood - Blood Anaerobic Blood Culture - Preliminary No growth in 24 hours. Assessment/ Plan: Nephrology No dyspnea No chest pain Persistent RLE pain Improved urination No acute events overnight Vitals, medications, blood work and imaging reviewed in the chart General: Alert, In no apparent distress, Cooperative HEENT: Atraumatic, Normocephalic Neck: Supple Respiratory: Clear to auscultation bilaterally, Normal air movement Cardiovascular: No edema, Regular rate/rhythm Gastrointestinal: Soft and benign, Non-distended, No tenderness Musculoskeletal: No contractures, Other (Lt BKA, Rt BKA) Integumentary: Other (Xerosis, stasis dermatitis) Neurological: Normal speech, Normal tone, Normal affect Conclusions/Impression: CKD IIIb -No NSAIDs HTN with CKD -Continue Hydralazine DM II with CKD, Polyneuropathy and Peripheral Angiopathy -RISS prn PAD Right foot gangrene -Continue Abx -Wound care as ordered -Follow up with surgery sp Right BKA 06-20-24 Hypoalbuminemia -Recommend protein supplementation BPH with LUTS Urinary Retention -Continue tamsulosin bid Hospitalist note reviewed
[2024-06-22] MEDS ORDERED: HYDROMORPHONE HCL 1 MG/ML INJ IV PRN (09:21)
--- NOTE | 2024-06-22 20:17 | P.PN ---
Date of Service: 06/22/24 Subjective Patient has been doing well and patient denies any new complaints. Clinical symptoms are stable. He is having some phantom pain. 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 1. Continue with IV antibiotic therapy. s/p amputation. FLAVIO drain with 100ml serous fluid. awaiting PT and hoping for IPR 2. Type 2 diabetes with diabetic neuropathy; strict blood sugar control and continue with medication for neuropathic pain 3. History of hypertension; continue with strict blood pressure control 4. BPH; continue with Flomax - scheduled BID per Dr. Mahmood 5. GI DVT prophylaxis 06/22/24 FLAVIO drain with less dc today, wound covering clean and dry with compression per knee immobilizer Consults for IPR and PT/OT placed FSBS have been good. Pt thought maybe more long acting in am would help but BS is stable and we will continue current regimen continue BID flomax Will begin medications for constipation. Discharge Plan: Home Plan to discharge in: Greater than 2 days - Advance Directives Does patient have a Living Will: No Does patient have a Durable POA for Healthcare: No - Code Status/Comfort Care Code Status Assessed: Yes Code Status: Full Code Critical Care: No Time Spent Managing PTS Care (In Minutes): 45
[2024-06-22] MEDS: MESALAMINE 500 MG CAPSULE.ER PO SCH (20:49)
[2024-06-22] MEDS: JUVEN PACKET PO SCH (20:51)
--- NOTE | 2024-06-22 20:59 | P.PN ---
Date of Service: 06/22/24 Vital Signs Temp Pulse Resp BP Pulse Ox 97.3 F 73 14 126/68 98 06/22/24 20:00 06/22/24 20:00 06/22/24 20:00 06/22/24 20:00 06/22/24 20:00 Medications Acetaminophen (Acetaminophen 500 Mg Tab) 500 mg PO Q4HP PRN PRN Reason: Pain scale 2-4 (Mild)/Fever Hydrocodone Bitart/Acetaminophen (Hydrocodone/Apap 7.5/325 Mg Tab) 1 tab PO Q4H PRN PRN Reason: Pain scale 5-7 (Moderate) Last Admin: 06/22/24 20:50 Dose: 1 tab Amino Acids (Amino Acids/Protein Hydrolys 30 Ml Liquid.Pkt) 30 ml PO BID [facility] Last Admin: 06/22/24 20:49 Dose: 30 ml Docusate Sodium (Docusate Na 100 Mg Cap) 100 mg PO BID [facility] Last Admin: 06/22/24 20:50 Dose: 100 mg Enoxaparin Sodium (Enoxaparin 40 Mg/0.4 Ml) 40 mg SQ DAILY [facility] Hydralazine HCl (Hydralazine Hcl 25 Mg Tablet) 25 mg PO BID [facility] Last Admin: 06/22/24 20:51 Dose: 25 mg Hydromorphone HCl (Hydromorphone Hcl 1 Mg/Ml Inj) 1 mg IV Q6H PRN PRN Reason: Pain scale 8-10 (Severe) Vancomycin HCl 1.5 gm/ Sodium (Chloride) 500 mls @ 250 mls/hr IVPB Q36H [facility]; Protocol Last Admin: 06/21/24 17:18 Dose: 500 mls Insulin Glargine (Insulin Glargine 100 Unit/Ml) 20 unit SQ 30 MIN BEFORE HS [facility] Last Admin: 06/22/24 20:50 Dose: 20 unit Isosorbide Mononitrate (Isosorbide [place] Sr 30 Mg Tab) 30 mg PO DAILY [facility] Last Admin: 06/22/24 09:36 Dose: 30 mg L-Arginine/L-Glutamine/HMB (Warren Packet) 1 pkt PO BID [facility] Last Admin: 06/22/24 20:51 Dose: 1 pkt Lactulose (Lactulose 20 Gm/30 Ml Ucup) 20 gm PO DAILY [facility] Melatonin (Melatonin 3 Mg Tablet) 3 mg PO BEDTIME PRN PRN PRN Reason: INSOMNIA Last Admin: 06/21/24 21:21 Dose: 3 mg Mesalamine (Mesalamine 500 Mg Capsule.Er) 500 mg PO BID [facility] Last Admin: 06/22/24 20:49 Dose: 500 mg Metoprolol Succinate (Metoprolol Xl 50 Mg Tab) 50 mg PO DAILY [facility] Last Admin: 06/22/24 09:36 Dose: 50 mg Ondansetron HCl (Ondansetron 4 Mg/2 Ml Vial) 4 mg IV Q6HP PRN PRN Reason: NAUSEA / VOMITING Pantoprazole S[facility] ([facility]) [facility] Protocol Rosuvastatin Calcium (Rosuvastatin 5 Mg Tab) 5 mg PO DAILY [facility] Last Admin: 06/22/24 09:36 Dose: 5 mg Tamsulosin HCl (Tamsulosin 0.4 Mg Sr Cap) 0.4 mg PO BID [facility] Last Admin: 06/22/24 20:51 Dose: 0.4 mg Microbiology Results 06/17/24 12:00 Blood - Blood Aerobic Blood Culture - Final No growth in 5 days. 06/17/24 12:00 Blood - Blood Anaerobic Blood Culture - Final No growth in 5 days. 06/17/24 11:45 Blood - Blood Aerobic Blood Culture - Final No growth in 5 days. 06/17/24 11:45 Blood - Blood Anaerobic Blood Culture - Final No growth in 5 days. Assessment/ Plan: Nephrology No dyspnea No chest pain Improving RLE pain +BM Improved urination No acute events overnight Vitals, medications, blood work and imaging reviewed in the chart General: Alert, In no apparent distress, Cooperative HEENT: Atraumatic, Normocephalic Neck: Supple Respiratory: Clear to auscultation bilaterally, Normal air movement Cardiovascular: No edema, Regular rate/rhythm Gastrointestinal: Soft and benign, Non-distended, No tenderness Musculoskeletal: No contractures, Other (Lt BKA, Rt BKA) Integumentary: Other (Xerosis, stasis dermatitis) Neurological: Normal speech, Normal tone, Normal affect Conclusions/Impression: CKD IIIb -No NSAIDs HTN with CKD -Continue Hydralazine DM II with CKD, Polyneuropathy and Peripheral Angiopathy -RISS prn PAD Right foot gangrene -Continue Abx -Wound care as ordered -Follow up with surgery sp Right BKA 06-20-24 Hypoalbuminemia -Recommend protein supplementation BPH with LUTS Urinary Retention -Continue tamsulosin bid Hospitalist note reviewed
[2024-06-23 07:59] LABS: Absolute Eosinophils 0.1 K/uL (0-0.5); Absolute Lymphocytes (CBC) 2.3 K/uL (0.7-4.9); Absolute Monocytes 0.9 K/uL (0.1-1.3); Absolute Neutrophil 5.5 K/uL (1.8-8.0); Basophils % 0.5 % (0-1.3); Eosinophils % 0.7 % (0-4.4); Hematocrit 31.4 % (39.6-49.0); Hemoglobin 10.2 g/dL (13.6-17.9); Lymphocytes % 26.5 % (15.3-44.8); MCH 27.3 pg (27.0-35.0); MCHC 32.4 g/dL (32.0-36.0); MCV 84.4 fL (80-100); Monocytes % 9.9 % (3.3-12.3); Neutrophils % 62.4 % (41.7-73.7); Platelets 187 thou/uL (152-406); RBC Red Blood Cell Count 3.72 M/uL (4.33-5.43); Red Cell Distribution Width 15.2 % (12.1-15.2)
[2024-06-23 08:09] LABS: Albumin 2.3 g/dL (3.4-5.0); Albumin/Globulin Ratio 0.5 (1.1-1.8); Anion Gap 9.3 mEq/L (5.0-15.0); Bilirubin Total 0.4 mg/dL (0.2-1.0); Globulin 4.4 g/dL (2.3-3.5); Potassium 4.3 mEq/L (3.5-5.1); Protein, Total 6.7 g/dL (6.4-8.2)
[2024-06-23] MEDS: LACTULOSE 20 GM/30 ML UCUP PO SCH (08:42)
[2024-06-23] MEDS: ENOXAPARIN 40 MG/0.4 ML SQ SCH (08:42)
[2024-06-23] MEDS: PANTOPRAZOLE 40MG TABLET PO SCH (08:43)
[2024-06-23] MEDS ORDERED: GLUCAGON 1 MG/VIAL IM PRN (14:12)
[2024-06-23] MEDS ORDERED: D10W 125 ML IV PRN (14:12)
[2024-06-23] MEDS: INSULIN REGULAR (HUMAN) 100 UNIT/ML SQ SCH (15:39)
[2024-06-23] MEDS: ACETAMINOPHEN 500 MG TAB PO PRN (18:10)
--- NOTE | 2024-06-23 19:07 | PN ---
Date of Progress Note: 06/23/2024 Diagnosis: Status post right below-knee amputation. Subjective: The patient is doing great. Tolerating diet. Good spirits. No shortness of breath. N o chest pain. No fever. Objective: Chest: Clear. Abdomen: Soft and depressible. Extremities: Amputation site dressings were changed, looks beautiful, 100% take and zeyad look carla e and healing well. FLAVIO drain is minimal, was removed today. Plan: Waiting for rehab. Continue dressings just p.[email or web address] GLASGOW/RENO Voice ID: [id number] Report ID: [id number]
--- NOTE | 2024-06-23 20:39 | P.PN ---
Date of Service: 06/23/24 Vital Signs Temp Pulse Resp BP Pulse Ox 98.4 F 76 20 125/59 L 95 06/23/24 16:00 06/23/24 16:00 06/23/24 16:00 06/23/24 16:00 06/23/24 16:00 Medications Acetaminophen (Acetaminophen 500 Mg Tab) 500 mg PO Q4HP PRN PRN Reason: Pain scale 2-4 (Mild)/Fever Last Admin: 06/23/24 18:10 Dose: 500 mg Hydrocodone Bitart/Acetaminophen (Hydrocodone/Apap 7.5/325 Mg Tab) 1 tab PO Q4H PRN PRN Reason: Pain scale 5-7 (Moderate) Last Admin: 06/23/24 15:23 Dose: 1 tab Amino Acids (Amino Acids/Protein Hydrolys 30 Ml Liquid.Pkt) 30 ml PO BID [facility] Last Admin: 06/23/24 08:42 Dose: Not Given Docusate Sodium (Docusate Na 100 Mg Cap) 100 mg PO BID [facility] Last Admin: 06/23/24 08:43 Dose: 100 mg Enoxaparin Sodium (Enoxaparin 40 Mg/0.4 Ml) 40 mg SQ DAILY [facility] Last Admin: 06/23/24 08:42 Dose: 40 mg Glucagon (Glucagon 1 Mg/Vial) 1 mg IM 1X PRN PRN Reason: HYPOGLYCEMIA Hydralazine HCl (Hydralazine Hcl 25 Mg Tablet) 25 mg PO BID [facility] Last Admin: 06/23/24 08:43 Dose: 25 mg Hydromorphone HCl (Hydromorphone Hcl 1 Mg/Ml Inj) 1 mg IV Q6H PRN PRN Reason: Pain scale 8-10 (Severe) Vancomycin HCl 1.5 gm/ Sodium (Chloride) 500 mls @ 250 mls/hr IVPB Q36H [facility]; Protocol Last Admin: 06/23/24 05:42 Dose: 500 mls Dextrose (Dextrose 10% Water Iv Soln.) 125 mls @ 0 mls/hr IV PRN PRN; Protocol PRN Reason: HYPOGLYCEMIA Insulin Glargine (Insulin Glargine 100 Unit/Ml) 20 unit SQ 30 MIN BEFORE HS [facility] Last Admin: 06/22/24 20:50 Dose: 20 unit Insulin Human Regular (Insulin Regular (Human) 100 Unit/Ml) 0 unit SQ ACHS [facility]; Protocol Last Admin: 06/23/24 15:39 Dose: Not Given Isosorbide Mononitrate (Isosorbide Bryan Sr 30 Mg Tab) 30 mg PO DAILY [facility] Last Admin: 06/23/24 08:43 Dose: 30 mg L-Arginine/L-Glutamine/HMB (Warren Packet) 1 pkt PO BID [facility] Last Admin: 06/23/24 08:42 Dose: Not Given Lactulose (Lactulose 20 Gm/30 Ml Ucup) 20 gm PO DAILY [facility] Last Admin: 06/23/24 08:42 Dose: 20 gm Melatonin (Melatonin 3 Mg Tablet) 3 mg PO BEDTIME PRN PRN PRN Reason: INSOMNIA Last Admin: 06/21/24 21:21 Dose: 3 mg Mesalamine (Mesalamine 500 Mg Capsule.Er) 500 mg PO BID [facility] Last Admin: 06/23/24 09:00 Dose: Not Given Metoprolol Succinate (Metoprolol Xl 50 Mg Tab) 50 mg PO DAILY [facility] Last Admin: 06/23/24 08:43 Dose: 50 mg Ondansetron HCl (Ondansetron 4 Mg/2 Ml Vial) 4 mg IV Q6HP PRN PRN Reason: NAUSEA / VOMITING Pantoprazole S[facility]) [facility]; [facility] Last Admin: 06/23/24 15:23 Dose: 40 mg Rosuvastatin Calcium (Rosuvastatin 5 Mg Tab) 5 mg PO DAILY [facility] Last Admin: 06/23/24 08:43 Dose: 5 mg Tamsulosin HCl (Tamsulosin 0.4 Mg Sr Cap) 0.4 mg PO BID [facility] Last Admin: 06/23/24 08:43 Dose: 0.4 mg Microbiology Results 06/17/24 12:00 Blood - Blood Aerobic Blood Culture - Final No growth in 5 days. 06/17/24 12:00 Blood - Blood Anaerobic Blood Culture - Final No growth in 5 days. 06/17/24 11:45 Blood - Blood Aerobic Blood Culture - Final No growth in 5 days. 06/17/24 11:45 Blood - Blood Anaerobic Blood Culture - Final No growth in 5 days. Assessment/ Plan: Nephrology No dyspnea No chest pain Feeling better today Working with PT No acute events overnight Vitals, medications, blood work and imaging reviewed in the chart General: Alert, In no apparent distress, Cooperative HEENT: Atraumatic, Normocephalic Neck: Supple Respiratory: Clear to auscultation bilaterally, Normal air movement Cardiovascular: No edema, Regular rate/rhythm Gastrointestinal: Soft and benign, Non-distended, No tenderness Musculoskeletal: No contractures, Other (Lt BKA, Rt BKA) Integumentary: Other (Xerosis, stasis dermatitis) Neurological: Normal speech, Normal tone, Normal affect Conclusions/Impression: CKD IIIb -No NSAIDs HTN with CKD -Continue Hydralazine DM II with CKD, Polyneuropathy and Peripheral Angiopathy -RISS prn PAD Right foot gangrene -Continue Abx -Wound care as ordered -Follow up with surgery sp Right BKA 06-20-24 Hypoalbuminemia -Recommend protein supplementation BPH with LUTS Urinary Retention -Continue tamsulosin bid Hospitalist note reviewed
[2024-06-24 06:14] LABS: Absolute Eosinophils 0.1 K/uL (0-0.5); Absolute Lymphocytes (CBC) 1.6 K/uL (0.7-4.9); Absolute Monocytes 0.8 K/uL (0.1-1.3); Absolute Neutrophil 6.4 K/uL (1.8-8.0); Basophils % 0.4 % (0-1.3); Eosinophils % 1.6 % (0-4.4); Hematocrit 32.1 % (39.6-49.0); Hemoglobin 10.5 g/dL (13.6-17.9); Lymphocytes % 18.2 % (15.3-44.8); MCH 27.7 pg (27.0-35.0); MCHC 32.8 g/dL (32.0-36.0); MCV 84.5 fL (80-100); MPV 9.9 fL (7.6-11.3); Monocytes % 8.9 % (3.3-12.3); Neutrophils % 70.9 % (41.7-73.7); Nucleated Red Blood Cells % 0.1 % (0-0); Platelets 185 thou/uL (152-406); Red Cell Distribution Width 15.3 % (12.1-15.2)
[2024-06-24 06:31] LABS: Albumin 2.3 g/dL (3.4-5.0); Albumin/Globulin Ratio 0.5 (1.1-1.8); Anion Gap 8.4 mEq/L (5.0-15.0); Bilirubin Total 0.5 mg/dL (0.2-1.0); Globulin 4.5 g/dL (2.3-3.5); Potassium 4.4 mEq/L (3.5-5.1); Protein, Total 6.8 g/dL (6.4-8.2)
--- NOTE | 2024-06-24 08:53 | P.PN ---
Date of Service: 06/24/24 Subjective Patient has been doing well and patient denies any new complaints. Clinical symptoms are stable. +BM yesterday (06/23/24). Awaiting inpt rehab. FLAVIO drain removed yesterday with dressing change to right BKA. 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 1. Continue with IV antibiotic therapy. s/p amputation. FLAVIO drain removed yest erday 2. Type 2 diabetes with diabetic neuropathy; strict blood sugar control and continue with medication for neuropathic pain 3. History of hypertension; continue with strict blood pressure control 4. BPH; continue with Flomax - scheduled BID per Dr. Mahmood 5. GI DVT prophylaxis 06/22/24 FLAVIO drain with less dc today, wound covering clean and dry with compression per knee immobilizer Consults for IPR and PT/OT placed FSBS have been good. Pt thought maybe more long acting in am would help but BS is stable and we will continue current regimen continue BID flomax Will begin medications for constipation. 06/23/24 BM successful Stood and walked with PT 06/24/24 FSBS stable FLAVIO drain removed with dressing change Working with PT awaiting approval for IPR Discharge Plan: IPR Plan to discharge in: Greater than 2 days - Advance Directives Does patient have a Living Will: No Does patient have a Durable POA for Healthcare: No - Code Status/Comfort Care Code Status Assessed: Yes Code Status: Full Code Critical Care: No Time Spent Managing PTS Care (In Minutes): 45
[2024-06-24] MEDS: AMOX/K CLAV 875 MG TAB PO SCH (11:55)
--- NOTE | 2024-06-24 13:03 | PN ---
Date of Progress Note: 06/24/2024 Subjective: Patient was seen and examined at bedside. He is doing well. He is status post postop d ay 5 for right BKA. He denies any acute issues. He was working with a physical therapist. Objective: Vital Signs: Have been reviewed and are stable. General: He appears in no acute distress. Lungs: Clear to auscultation. Abdomen: Soft and nontender. Extremities: Left BKA noted and the right BKA is noted to be in dressing. Laboratory Data: Showing creatinine of 1.48. Other electrolytes are all stable. CBC showing stable hemoglobin, hematocrit, and platelet count. Impression: 1.Chronic renal insufficiency, currently with stable renal function. Creatinine seems to be at base line. 2.Right foot gangrene, status post right below knee amputation. Continue wound care and antibiotics as per Infectious Disease. 3.Hypertension. 4.BPH with lower urinary tract symptoms. Continue tamsulosin. Plan: Overall, patient is doing well. Continue all medications and plan of care and avoid further h ypotension, nephrotoxins, and to follow up closely. VV/MODL Voice ID: [id number] Report ID: [id number]
[2024-06-25 06:33] LABS: Absolute Basophils 0.1 K/uL (0-0.5); Absolute Eosinophils 0.2 K/uL (0-0.5); Absolute Lymphocytes (CBC) 2.1 K/uL (0.7-4.9); Absolute Neutrophil 4.7 K/uL (1.8-8.0); Basophils % 1.1 % (0-1.3); Eosinophils % 2.7 % (0-4.4); Hematocrit 30.9 % (39.6-49.0); Hemoglobin 10.2 g/dL (13.6-17.9); Lymphocytes % 26.1 % (15.3-44.8); MCH 27.7 pg (27.0-35.0); MCHC 32.9 g/dL (32.0-36.0); MCV 84.1 fL (80-100); MPV 9.6 fL (7.6-11.3); Monocytes % 11.9 % (3.3-12.3); Neutrophils % 58.2 % (41.7-73.7); Nucleated Red Blood Cells % 0.1 % (0-0); Platelets 164 thou/uL (152-406); RBC Red Blood Cell Count 3.68 M/uL (4.33-5.43); Red Cell Distribution Width 15.1 % (12.1-15.2)
[2024-06-25 06:51] LABS: ALT/SGPT < 14 U/L (16-61); AST/SGOT 21 U/L (15-37); Albumin 2.2 g/dL (3.4-5.0); Albumin/Globulin Ratio 0.5 (1.1-1.8); Alkaline Phosphatase 84 U/L (45-117); BUN Blood Urea Nitrogen 39 mg/dL (7-18); Bicarbonate 25 mEq/L (21-32); Bilirubin Total 0.4 mg/dL (0.2-1.0); Globulin 4.3 g/dL (2.3-3.5); Glomerular Filtration Rate 51 ml/min (=/>90); Glucose Level 145 mg/dL (74-106); Protein, Total 6.5 g/dL (6.4-8.2); Sodium Level 137 mEq/L (136-145)
--- NOTE | 2024-06-25 09:51 | P.PN ---
Date of Service: 06/25/24 Subjective mild diaphoresis overnight, denies fever/chills Physical Examination - Vital Signs reviewed - Physical Exam General: Alert, In no apparent distress, Oriented x3 Respiratory: Clear to auscultation bilaterally, occasional wheeze Cardiovascular: Regular rate/rhythm, Normal S1 S2 Gastrointestinal: Normal bowel sounds, Soft and benign, Non-distended, No tenderness Musculoskeletal: No clubbing, No swelling, No tenderness; left AKA; right BKA (FLAVIO drain removed) Integumentary: No rashes Neurological: No focal deficits Assessment & Plan - Problems (Diagnosis) (1) 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 1. Continue with po antibiotics - Augmentin 2. Type 2 diabetes with diabetic neuropathy; strict blood sugar control and continue with medication for neuropathic pain 3. History of hypertension; continue with strict blood pressure control 4. BPH; continue with Flomax BID per Dr. Mahmood 5. GI DVT prophylaxis 06/22/24 FLAVIO drain with less dc today, wound covering clean and dry with compression per knee immobilizer Consults for IPR and PT/OT placed FSBS have been good. Pt thought maybe more long acting in am would help but BS is stable and we will continue current regimen continue BID flomax Will begin medications for constipation. 06/23/24 BM successful Stood and walked with PT 06/24/24 FSBS stable FLAVIO drain removed with dressing change Working with PT awaiting approval for IPR 06/25/24 Awaiting IPR continue to monitor for fever, sources of infection, hypoglycemia Begin Nebs and I-S hx of UC, restarted mesalamine and pt is having daily stools with assistance of dulcolax, lactulose Discharge Plan: IPR Plan to discharge in: Greater than 2 days - Advance Directives Does patient have a Living Will: No Does patient have a Durable POA for Healthcare: No - Code Status/Comfort Care Code Status Assessed: Yes Code Status: Full Code Critical Care: No Time Spent Managing PTS Care (In Minutes): 45
[2024-06-25] MEDS: ARFORMOTEROL TARTRATE 15 MCG/2 ML VIAL.NEB NEB SCH (19:00)
[2024-06-26 06:23] LABS: Absolute Eosinophils 0.2 K/uL (0-0.5); Absolute Lymphocytes (CBC) 1.5 K/uL (0.7-4.9); Absolute Monocytes 0.8 K/uL (0.1-1.3); Absolute Neutrophil 4.2 K/uL (1.8-8.0); Basophils % 0.7 % (0-1.3); Eosinophils % 3.5 % (0-4.4); Hematocrit 32.1 % (39.6-49.0); Hemoglobin 10.6 g/dL (13.6-17.9); Lymphocytes % 22.5 % (15.3-44.8); MCH 27.6 pg (27.0-35.0); MCHC 32.9 g/dL (32.0-36.0); MCV 83.7 fL (80-100); MPV 9.9 fL (7.6-11.3); Neutrophils % 62.3 % (41.7-73.7); Platelets 161 thou/uL (152-406); RBC Red Blood Cell Count 3.83 M/uL (4.33-5.43)
[2024-06-26 06:40] LABS: Albumin 2.2 g/dL (3.4-5.0); Albumin/Globulin Ratio 0.5 (1.1-1.8); Anion Gap 10.9 mEq/L (5.0-15.0); Bilirubin Total 0.5 mg/dL (0.2-1.0); Globulin 4.6 g/dL (2.3-3.5); Potassium 3.9 mEq/L (3.5-5.1); Protein, Total 6.8 g/dL (6.4-8.2)
[2024-06-26] MEDS: POTASSIUM CL SA 10 MEQ TAB PO ONE (09:07)
--- NOTE | 2024-06-26 10:58 | P.PN ---
Subjective Date of Service: 06/26/24 Chief Complaint: Gangrene of the right foot, s/p Subjective: Tolerating diet, Ambulating, Improving Review of Systems ENT: Unremarkable Respiratory: Unremarkable Cardiovascular: Unremarkable Gastrointestinal: Unremarkable Musculoskeletal: As per HPI Physical Examination - Vital Signs Temperature: 98.6 F Blood Pressure: 156/70 Pulse: 77 Respirations: 16 Pulse Ox (%): 97 - Physical Exam General: Oriented x2, Cooperative HEENT: PERRLA, EOMI Neck: Supple Musculoskeletal: No erythema, No tenderness, No warmth Integumentary: No rashes, No breakdown, No warmth, No cyanosis Neurological: Normal speech Assessment And Plan - Plan Cont transfer plan to Rehab Dressing changes PRN f/u at office in one week when discharged
[2024-06-26 13:43] VITALS: O2SAT 97
[2024-06-26 16:32] VITALS: BP 131/64; TEMP 98.6
[2024-07-04 16:04] LABS: Urine 5-HIAA 24 Hour 0.3 mg/24 h (< OR = 6.0)
== END 2024-06-26 16:00 | DRG 240 ==
LOC: ER 10:07 → ERHOLD 16:30 → 4TH 18:34
PROVIDERS: ADMIT Hospitalist; ATTEND Hospitalist
PROC: 0Y6H0Z1 Detachment at Right Lower Leg, High, Open Approach (ICD-10-PCS; principal; 2024-06-19 13:02)
DX: E11.52 Type 2 diabetes mellitus with diabetic peripheral angiopathy with gangrene (principal); K51.90 Ulcerative colitis, unspecified, without complications; M86.171 Other acute osteomyelitis, right ankle and foot; L03.115 Cellulitis of right lower limb; E11.69 Type 2 diabetes mellitus with other specified complication; I12.9 Hypertensive chronic kidney disease with stage 1 through stage 4 chronic kidney disease, or unspecified chronic kidney disease; N18.32 Chronic kidney disease, stage 3b; E11.22 Type 2 diabetes mellitus with diabetic chronic kidney disease; E11.42 Type 2 diabetes mellitus with diabetic polyneuropathy; N40.1 Benign prostatic hyperplasia with lower urinary tract symptoms; R33.8 Other retention of urine; E88.09 Other disorders of plasma-protein metabolism, not elsewhere classified; I25.10 Atherosclerotic heart disease of native coronary artery without angina pectoris; B95.8 Unspecified staphylococcus as the cause of diseases classified elsewhere; Z79.4 Long term (current) use of insulin; Z95.5 Presence of coronary angioplasty implant and graft; Z79.82 Long term (current) use of aspirin; Z79.02 Long term (current) use of antithrombotics/antiplatelets; Z79.899 Other long term (current) drug therapy; Z89.512 Acquired absence of left leg below knee; Z87.891 Personal history of nicotine dependence
CPT/HCPCS: 36415; 71045; 74176; 80048; 80053; 80202; 81050; 82947; 83497; 83605; 83735; 84100; 85025; 85610; 85730; 86316; 87040; 88307; 88311; 93005; 93306; 94010; 96365; 96366; 96375; 97110; 97116; 97161; 97530; 97542; 99285; J0692; J1100; J1171; J1650; J2250; J2405; J2704; J3010; J7030; J7040; J7050; J7120

== ENCOUNTER 2024-06-26 15:20 | Inpatient (IN) | payer OTHER ==
[2024-06-26 16:35] VITALS: BMI 27.8
[2024-06-26] MEDS ORDERED: GLUCAGON 1 MG/VIAL IM PRN (17:19)
[2024-06-26] MEDS ORDERED: D10W 125 ML IV PRN (17:19)
[2024-06-26 18:49] LABS: Specific Gravity 1.016 (1.005-1.030); Sqamous Epithelial None Seen /HPF (None Seen); Urine Bacteria None Seen /HPF (<20); Urine Bilirubin NEGATIVE (Negative); Urine Blood Negative (Negative); Urine Clarity Clear (Clear); Urine Color Light-Yellow (Yellow); Urine Crystals Unidentified Few /HPF (None Seen); Urine Culture Reflex Order NOT NEEDED; Urine Glucose TRACE (Negative); Urine Ketones NEGATIVE (Negative); Urine Micro Reflex YN NO BILL MICROSCOPIC; Urine Mucus Slight /HPF (None Seen); Urine Nitrite NEGATIVE (Negative); Urine Protein 1+ (Negative); Urine RBC <5 /HPF (None Seen); Urine Urobilinogen Normal (Normal); Urine WBC <5 /HPF (<5); Urine Yeast (Budding) Trace /HPF (None Seen); Urine pH 5.5 (5.0-7.0)
[2024-06-26] MEDS: ARFORMOTEROL TARTRATE 15 MCG/2 ML VIAL.NEB NEB SCH (19:00)
[2024-06-26] MEDS ORDERED: DOCUSATE NA/SENNA CONC 1 TAB PO PRN (20:00)
[2024-06-26] MEDS: HYDROCODONE/APAP 7.5/325 MG TAB PO PRN (20:10)
[2024-06-26] MEDS: DOCUSATE NA 100 MG CAP PO SCH (20:10)
[2024-06-26] MEDS: MELATONIN 3 MG TABLET PO PRN (20:11)
[2024-06-26] MEDS: HYDRALAZINE HCL 25 MG TABLET PO SCH (20:11)
[2024-06-26] MEDS: AMOX/K CLAV 875 MG TAB PO SCH (20:11)
[2024-06-26] MEDS: APIXABAN 2.5 MG TABLET PO SCH (20:11)
[2024-06-26] MEDS: JUVEN PACKET PO SCH (20:12)
[2024-06-26] MEDS: AMINO ACIDS/PROTEIN HYDROLYS 30 ML LIQUID.PKT PO SCH (20:12)
[2024-06-26] MEDS: INSULIN GLARGINE 100 UNIT/ML SQ SCH (20:13)
[2024-06-26] MEDS: INSULIN REGULAR (HUMAN) 100 UNIT/ML SQ SCH (20:13)
[2024-06-27] MEDS: METOPROLOL XL 100 MG TAB PO SCH (05:04)
[2024-06-27 06:03] LABS: Absolute Basophils 0.1 K/uL (0-0.5); Absolute Eosinophils 0.3 K/uL (0-0.5); Absolute Monocytes 0.9 K/uL (0.1-1.3); Absolute Neutrophil 4.2 K/uL (1.8-8.0); Eosinophils % 3.8 % (0-4.4); Hematocrit 32.2 % (39.6-49.0); Hemoglobin 10.5 g/dL (13.6-17.9); Lymphocytes % 26.6 % (15.3-44.8); MCH 27.3 pg (27.0-35.0); MCHC 32.7 g/dL (32.0-36.0); MCV 83.6 fL (80-100); MPV 10.4 fL (7.6-11.3); Neutrophils % 56.6 % (41.7-73.7); Nucleated Red Blood Cells % 0.1 % (0-0); Platelets 169 thou/uL (152-406); RBC Red Blood Cell Count 3.85 M/uL (4.33-5.43); Red Cell Distribution Width 15.5 % (12.1-15.2)
[2024-06-27 06:22] LABS: Albumin 2.3 g/dL (3.4-5.0); Anion Gap 9.3 mEq/L (5.0-15.0); Magnesium 2.4 mg/dL (1.6-2.4); Potassium 4.3 mEq/L (3.5-5.1); Prealbumin 12.5 mg/dL (20-40)
[2024-06-27] MEDS: PANTOPRAZOLE 40MG TABLET PO SCH (07:09)
[2024-06-27] MEDS: MESALAMINE 400 MG CAPSULE.DR PO SCH (07:50)
[2024-06-27] MEDS: TAMSULOSIN 0.4 MG SR CAP PO SCH (07:51)
[2024-06-27] MEDS: EMPAGLIFLOZIN PO SCH (07:54)
[2024-06-27] MEDS: ROSUVASTATIN 5 MG TAB PO SCH (09:16)
[2024-06-27] MEDS: GABAPENTIN 300 MG CAP PO SCH (20:14)
[2024-06-27] MEDS: TRAZODONE 50 MG TABLET PO SCH (20:14)
[2024-06-27] MEDS: GLUCERNA SHAKE 237 ML CAN PO SCH (20:16)
--- NOTE | 2024-06-27 22:02 | HP ---
Date of Admission: 06/26/2024 Time Of Service: 11 a.m. Chief Complaint: "I just had my right leg cut off and I have a lot of pain at the end of the stump." History Of Present Illness: Mr. Connor is a 64-year-old patient with history of poorly-controlled di abetes, hypertension, chronic kidney disease at stage III, benign prostatic hypertrophy, ulcerative c olitis, who had a prior left below-knee amputation in 2013, now comes in with gangrene of the right l ower extremity that required amputation and now has right tonnm-udr-lurr amputation done on . He did fail conservative management for the cellulitis that led to the amputation. His hospital course completed by the need for continued antibiotics due to the gangrene to help prevent sepsis. Ashleigh parker also has lack of mobility, endurance, poorly controlled diabetes, hypertension, require aggressive management. Prior to his recent hospitalization, he was doing all of his activities of daily living, mobilizing well, although he was developing the infection which began to limit him. Currently, he r equires contact guard assistance with bed mobility, minimum assistance for transfers, ambulation, and is performing well below his baseline level. Inpatient rehabilitation will help him return to his p rior level of functioning and reduce risk of rehospitalization. Rehabilitation at a lower level faci lity may result in him worsening and therefore it is necessary for [facility] to help him to recover as effectively as possible. Past Medical History: As noted above and include placement of cardiac stents. Allergies: NO KNOWN DRUG ALLERGIES. Imaging: A foot x-ray on 06/17/2024 shows stable mild osseous irregularities of the fourth metatarsa l head, stable overlying soft tissue wound. Pelvis CT scan on 06/17/2024, no acute or concerning abn ormalities in the abdomen and pelvis. Chest x-ray on 06/18/2024, no acute abnormalities identified. EKG on 06/17/2024, normal sinus rhythm, normal ECG. Echocardiogram on 06/19/2024, normal wall motio n, grade 1 diastolic dysfunction, mild mitral regurgitation. Medications: [place] 7.5/325 every 4 hours as needed, he has ProSource, no carb liquid that is ___, amino acid replacement 30 mL twice daily, Augmentin 875/125 twice daily from 06/26/2024 to 07/01, 10 doses ordered, Eliquis 2.5 mg twice daily, Brovana 15 mcg nebulizer spray twice daily, Cola ce 100 mg twice daily, Apresoline 25 mg twice daily, Semglee insulin 20 units at bedtime, Warren 1 pac ket twice daily, melatonin 3 mg at bedtime, although the patient says that is not very helpful and wi ll switch to trazodone, Toprol 100 mg daily, Protonix 40 mg twice daily, Crestor 5 mg daily, Senokot- S 2 at bedtime, Flomax 0.4 mg daily, and tramadol 50 mg as needed for moderate pain. Family History: Noncontributory. Social History: No recent alcohol, tobacco, or drug use. Review of Systems: Again, significant phantom limb pain in the right lower extremity, mild spasms in the proximal remain ing stump. Also some difficulty with bowel movements, which are now getting back on line, was 1 ever y other day, and reports some difficulty with his sleeping and melatonin was not very effective. We will try trazodone. Otherwise, no fevers or chills. No nausea, vomiting, and no rash and the stump has good hemostasis. He has a brace to keep the knee extended. Current Level Of Functioning: Currently, supervision for eating, oral hygiene. He has toileting wit h contact guard assistance, has showering moderate assistance, upper body dressing supervision, lower body dressing moderate assistance, donning and doffing footwear moderate assistance, rolling left-to -right and rhh-kh-ecbaa supervision contact guard, moving from a lying to sitting position on side of bed supervision contact guard assistance, for kkk-nq-aissg moderate assist required, transfer from b ed to chair and back to bed moderate assistance, toilet transfer moderate assistance. Ambulation, 20 feet with rolling walker, requires moderate assistance. Physical Examination: Vital Signs: Blood pressure 120/63, pulse 78, respiratory rate 18, temperature 97.2, oxygen saturati on 99%. Weight 175 pounds, height 5 feet 7 inches, BMI 27. General: Mr. Connor is sitting in a chair. Physical therapist just at bedside. HEENT: He is normocephalic, atraumatic. Sclerae anicteric. Oropharynx pink and moist. Neck: Supple. Chest: Clear. Neuro: His left lower extremity has zojgu-juf-ouje amputation. Right lower extremity has just been amputated and is in a brace. He does have his prostheses on the left lower extremity. He will be am bulated with the physical therapist. Rehab And Medical Assessment And Plan: Mr. Connor is admitted to the inpatient rehabilitation unit w ith impairment category 10, amputation of lower extremity. Impairment group code 05.1, unilateral lo wer limb below-knee amputation on the right. Etiologic diagnosis, right foot gangrene. Additional c omorbidities; benign prostate hypertrophy, chronic kidney disease, decreased mobility, decreased phys ical functioning, diabetes mellitus type 2, hypertension. Plan: He will have physical, occupational, and speech therapy for 3.5 hours, 5 of 7 days. We will c ontinue tramadol for pain, add gabapentin 300 mg twice daily for his neuropathic pain, continue Augme ntin for his lower extremity continued infection, continue Colace for stool softening, for blood suga r control, for diabetes, it is Semglee insulin 20 units at bedtime, pack of Warren for protein supplem entation. We will have trazodone for sleep 25 mg, switched from melatonin, Flomax 0.4 mg daily for h is urinary retention, Crestor for dyslipidemia, Protonix for GE reflux, metoprolol for heart rate con trol, and the amino acid supplementation 30 cc twice daily. Note, he will have physical, occupationa l, and speech therapy if need be up to 3-1/2 hours, 5 of 7 days. DVT prophylaxis will be with the El iquis 2.5 mg twice daily and all other medications continued as indicated. Comorbidities That Are Impacting Rehabilitation: His infection in the lower extremity stump is manag ed by oral antibiotics. However, it is a possibility he may require IV antibiotics if white count be comes elevated, if he develops a fever. Currently, laboratory studies do show normal white count of 7.5 with stable hemoglobin of 10.5, platelets are unremarkable, creatinine 1.48, indicating some dehy dration. The patient will be hydrated and prealbumin low at 12.5 along with albumin low at 2.3, randal cates requiring the protein supplementation. Blood glucose 197, again that is being managed. Sodium , potassium, chloride all unremarkable and urinalysis did show trace budding yeast, 1+ total protein, and glucose will be evaluated to see if changes are required in his medication regimen. Rehab Specific Plan: Mr. Connor will have physical, occupational, and speech therapy if need be for 3.5 hours, 5 of 7 days, to work on his ability to be able to transfer from his bed to a chair to a wh eelchair. Also to be able to mobilize by a rolling walker as much as possible using his arms. Does have prosthesis on the left leg. The right below-knee amputation will not yet of course have prosthe sis. We will work on his ability to perform household activities including activities of daily livin g and to make safe decisions about his mobilization transfers to take medications appropriately. He will have 3.5 hours, 5 of 7 days as noted with therapy. Mr. Connor has a good understanding of the process of admission to the inpatient rehabilitation [facility] and how he will benefit from physical, occupational, and if need be speech therapy. He will have 24 hours a day, 7 days a week skilled rehabilitation and nursing, daily physician evaluation and man agement, and will have social service evaluation and management, discharge planning, home equipment, and for physician followup along with continued therapy. If need be, the General Surgery Service and Hospitalist Service will be consulted. Barriers To Discharge: He is currently on oral antibiotics, but if need be, he may have to be switch ed to IV antibiotics which may prolong his stay. He may have to go to longer care facility depending on how well he is doing. At this point, these are not quite likely as he is doing very well. He of course has now bilateral kufgv-lds-xqww amputations, chronic on the left and now recent on the right , so he is aware of the process and we will work on securing connection to the prosthesis [employer] to begin the process as he is discharged with the shrink wrap of the right leg stump prior to preparatio n for his prosthesis. Length Of Stay: About 12 days. Disposition: Home with family and continue therapy via Home Health. Prognosis: Good. Code Status: Full code. Rehab Specific Goals: 1.To become independent with upper and lower body dressing, donning and doffing his left lower extre mity prosthesis, and the brace on the right lower extremity. 2.To be able to mobilize a wheelchair 250 feet. 3.Transfer independently to bed, chair, toilet. 4.Independently perform activities of daily living including showering and upper and lower body dres sing. 5.Independently perform all cognitive functioning and to be aware of his pitfalls and risks of injur y as he of course has now no lower extremity legs except for the prosthesis and the right BKA. The above goals were reviewed with Mr. Connor and he is in agreement. By signing this document, I acknowledge I personally performed a full physical examination on Mr. Miguel ivan no later than 24 hours after his admission to the inpatient rehabilitation facility and determine d that he is able to tolerate the above course of treatment at an intensive level for a reasonable pe riod of time. A detailed individualized plan of care for him will be completed by hospital day 4 bas ed on the preadmission screen, history and physical, and therapy evaluations. JUNIOR Voice ID: [id number]
--- NOTE | 2024-06-28 20:35 | PN ---
Date of Progress Note: 06/28/2024 Time Of Service: 1:25 p.m. Subjective: Mr. Connor is resting in his room. He is much happier with his phantom limb pain in the right lower extremity where he has a right below-knee amputation. He has chronic left below-knee am putation. He is started on gabapentin, which is very helpful for reducing the phantom limb pain. He is able to sleep much better at night and does have sleep aid as well. Objective: No fevers, chills, nausea, or vomiting. Some mild again stump pain, but no spasms or fire fighter crash fire and rescue mping noted in his right below-knee amputation stump and chronic left below-knee amputation, no spasm s. Physical Examination: Vital Signs: Blood pressure is 135/63, pulse 67, respiratory rate 16, temperature 97.2. Oxygen satu ration 99%. General: Mr. Connor is sitting in a chair. HEENT: He is normocephalic, atraumatic. Sclerae anicteric. Oropharynx pink and moist. Neck: Supple. Chest: Clear. Heart: Regular. Extremities: He has prosthesis on the left lower extremity and right lower extremity, he is in the b race for extension to prevent hyperflexion of the knee that is amputated and there is good hemostasis at the stump surgical site. Laboratory Studies: White blood cell count 7.5, hemoglobin 10.5, platelets are 169. Sodium 137, pot assium 4.3, chloride 107, carbon dioxide 25, BUN 51, creatinine 1.48, prealbumin 12.5, albumin 2.3, m agnesium 2.4, calcium 8.9, glucose ranged from 125 to 172. His urinalysis did show trace glucose, tr brandon budding yeast, 1+ total protein. X-ray/imaging: No new x-rays or imaging. Medications: He is on [place] 7.5/325 every 4 hours as needed for severe pain. He twice da shannon. He is on Augmentin 875/125 twice daily from 06/26/2024 to 07/01/2024. Eliquis 2.5 mg twice elizabeth ly for DVT risk reduction. Colace 100 mg twice daily for stool softening. Glucerna 2 tablets twice daily. Gabapentin 300 mg twice daily. Apresoline 25 mg twice daily. Semglee insulin 20 units at be dtime plus mild insulin sliding scale. Melatonin 3 mg at bedtime. Mesalamine 1200 mg daily. Metopr olol 100 mg daily. Protonix 40 mg twice daily. Crestor 5 mg daily. Senokot 2 tablets at bedtime. Flomax 0.4 mg daily. Tramadol 50 mg every 6 hours as needed, and Desyrel 50 mg at bedtime scheduled. Progress Made With Physical And Occupational Therapy: Today, with Physical Therapy, he was able to a mbulate 50 feet, 75 feet, and 20 feet twice with contact guard assistance using a rolling walker. Hickman d multiple episodes of the prosthetic foot catching on the floor and the knee almost buckling. He mo bilized the wheelchair 500 feet with modified independence. Lua-lb-onxgv transfer done with contact guard assistance. With occupational therapy, did engage in dynamic standing balance activity, reachi ng across midline with contact guard assistance to improve his dynamic standing balance. Had difficulty with depth perception when turning corners. Assessment And Plan: Mr. Connor is a 64-year-old patient in the rehabilitation unit with a right bel ow-knee amputation due to gangrene. He has also decreased mobility, decreased physical functioning, diabetes mellitus, hypertension, dyslipidemia. He does have coarse phantom limb pain, GE reflux. He is on Crestor for dyslipidemia. He has Senokot for constipation. Flomax for urinary retention. Ap resoline for his hypertension. Gabapentin for neuropathic pain, and malnutrition, which he is on Glu mandie and protein supplementation. Plan: We will continue with physical and occupational therapy 3 hours a day, 5 of 7 days. We will c ontinue with his comorbid condition medications which have been listed and we will be following close ly the risk of additional infection with white blood cell count, which is currently normal. He is on antibiotics as noted, we will continue for full course and blood work viraj l be followed regularly. LB/MODL Voice ID: [id number] Report ID: [id number]
[2024-06-29 05:18] LABS: Absolute Basophils 0.1 K/uL (0-0.5); Absolute Eosinophils 0.3 K/uL (0-0.5); Absolute Lymphocytes (CBC) 2.2 K/uL (0.7-4.9); Absolute Monocytes 0.8 K/uL (0.1-1.3); Absolute Neutrophil 3.7 K/uL (1.8-8.0); Eosinophils % 4.7 % (0-4.4); Hematocrit 31.1 % (39.6-49.0); Hemoglobin 10.3 g/dL (13.6-17.9); Lymphocytes % 31.1 % (15.3-44.8); MCH 27.9 pg (27.0-35.0); MCV 84.4 fL (80-100); MPV 10.8 fL (7.6-11.3); Monocytes % 11.2 % (3.3-12.3); Nucleated Red Blood Cells % 0.2 % (0-0); Platelets 160 thou/uL (152-406); RBC Red Blood Cell Count 3.68 M/uL (4.33-5.43); Red Cell Distribution Width 15.3 % (12.1-15.2)
[2024-06-29 05:41] LABS: Albumin 2.3 g/dL (3.4-5.0); Anion Gap 8.5 mEq/L (5.0-15.0); Magnesium 2.7 mg/dL (1.6-2.4); Potassium 4.5 mEq/L (3.5-5.1); Prealbumin 13.8 mg/dL (20-40)
[2024-06-29] MEDS: TRAMADOL HCL 50 MG TAB PO PRN (07:21)
[2024-06-29] MEDS: EMPAGLIFLOZIN PO SCH (08:15)
--- NOTE | 2024-06-29 15:10 | PN ---
Date of Progress Note: 06/29/2024 Time Of Service: 1:30 p.m. Subjective: Mr. Connor is sitting in his room. He is doing well. The phantom limb pain is much bet ter controlled with gabapentin. There was some question about the renal function. He has been follo wed by Dr. Mahmood on the Renal Service for a couple of years and he will be asked to see the patient again as his creatinine appears to be around baseline. Objective: No fevers, chills, nausea, vomiting, myalgias, arthralgias. Much improved phantom limb p ain. Physical Examination: Vital Signs: Blood pressure is 105/55, pulse 80, respiratory rate 16, temperature 97, oxygen saturat ion 98%. Weight 177 pounds, height 5 feet 7 inches, BMI 27. General: Mr. Connor is resting in his chair. His right leg is in the brace extended after below-kne e amputation, has a left leg prosthesis on. Neurological: Has no focal neurological deficits. Laboratory Studies: White blood cell count 7.1, hemoglobin 10.3, platelets 160. Sodium 140, potassi um 4.5, chloride 111, carbon dioxide 25, BUN is 70, creatinine 2.09, glucose 150 to 197. Calcium 8.7 , magnesium 2.7. Albumin 2.3, prealbumin 13.8. X-ray/imaging: No new x-rays or imaging. Medications: Medications have been reviewed and are unchanged. He will again be encouraged to hydra te and Dr. Mahmood will be seeing him. Progress Made With Physical, Occupational, And Speech Therapy: With physical therapy today, he was a ble to use a rolling walker, covered 35 feet 3 times, 50 feet once and 20 feet twice with minimal to contact guard assistance, multiple bfm-dk-mradx transfers done with minimum to contact guard assistan ce, zyfvq-le-jfhur transfers done again with minimum to contact guard assistance. With his occupatio nal therapy, propelled wheelchair from the gym to the room and back, contact guard assistance, sit-to -stand done, also stand pivot transfer, contact guard assistance needed. Assessment: Mr. Connor is a 64-year-old patient with gangrene of the right foot and status post righ t below-knee amputation. He has comorbid, decreased mobility, decreased physical functioning. He goncalves s already a left below-knee amputation with prosthesis in place. In addition, comorbidities of urina ry retention, stage 3-4 renal failure, dyslipidemia, GE reflux, diabetes mellitus, neuropathic pain, phantom limb pain and DVT optimum risk. On Augmentin for his gangrene. Plan: Will continue with physical and occupational therapy 3 hours a day, 5 of 7 days. He will also continue his comorbid condition medications. Will continue with Renal Service evaluation and manage ment. Dr. Mahmood will be assisting the patient at his convenience. [place]RA[place] Voice ID: [id number] Report ID: [id number]
--- NOTE | 2024-06-29 20:44 | RAD REPORT ---
EXAMINATION: US RETROPERITONEUM CLINICAL INDICATION: creatinine trending up TECHNIQUE: Real-time ultrasonography of the abdomen was performed. COMPARISON: CT 06/17/2024 FINDINGS: RIGHT KIDNEY: Right renal length measurement: 11.1 cm. Normal in echogenicity and size. No calculus, solid mass or hydronephrosis. LEFT KIDNEY: Left renal length measurement: 11.3 cm. Normal in echogenicity and size. No calculus, so lid mass or hydronephrosis. ADDITIONAL FINDINGS: None. IMPRESSION: No acute or significant abnormalities.
[2024-06-30 03:19] LABS: Specific Gravity 1.005 (1.005-1.030); Urine Bilirubin NEGATIVE (Negative); Urine Blood Negative (Negative); Urine Clarity Clear (Clear); Urine Color Colorless (Yellow); Urine Glucose 4+ (Over) (Negative); Urine Ketones NEGATIVE (Negative); Urine Microscopic Reflex YN NO UMIC; Urine Nitrite NEGATIVE (Negative); Urine Protein NEGATIVE (Negative); Urine Urobilinogen Normal (Normal)
--- NOTE | 2024-06-30 11:56 | P.CNS ---
Date of Consult: 06/30/24 Chief Complaint: CKD History of Present Illness: 64-year-old patient with history of poorly-controlled diabetes, hypertension, chronic kidney disease at stage III, benign prostatic hypertrophy, ulcerative colitis, who had a prior left below-knee amputation in 2013, now comes in with gangrene of the right lower extremity that required amputation and now has right nnirj-gpa-ljkl amputation done on 06/19/2024. currently pt is admitted to in rehab for physical therapy .. Nephr ology was consulted for CKD.. upon my evaluation , pt was feeling well , no new symptoms , NO CP or SOB , no edema , no N/V , no urinary symptoms.. Allergies No Known Allergies Allergy (Verified 06/26/24 18:34) Home Medications: Metoprolol Succinate [Toprol Xl*] 100 mg PO DAILY 04/15/22 Tamsulosin [Flomax*] 0.4 mg PO DAILY 04/15/22 Empagliflozin [Jardiance] 25 mg PO DAILY 04/06/23 Rosuvastatin Calcium 5 mg PO DAILY 04/06/23 traMADol HCL [Ultram*] 50 mg PO Q6H PRN 10 Days #20 tab 06/03/24 Mesalamine [Apriso] 1.5 gm PO DAILY 06/18/24 Amino Acids/Protein Hydrolys [Prosource No Carb Liquid Pkt] 30 ml PO BID packet 06/26/24 Amox/Clavulanate [Augmentin 875-125 Tab*] 875 mg PO BIDWM #10 tab 06/26/24 Apixaban [Eliquis] 2.5 mg PO BID 06/26/24 Arformoterol Tartrate [Brovana] 15 mcg NEB BIDRESP vial.neb 06/26/24 Docusate [Colace Cap*] 100 mg PO BID cap 06/26/24 Docusate/Senna [Senokot-S] 2 tab PO BEDTIME PRN 06/26/24 Hydralazine [Apresoline*] 25 mg PO BID tab 06/26/24 Hydrocodone 7.5/APAP 325 [[place] 7.5/325 mg*] 1 tab PO Q4H PRN tab 06/26/24 Insulin Glargine,Hum.rec.anlog [Semglee] 20 unit SQ 30 MIN BEFORE HS ml Warren [Warren*] 1 pkt PO BID 06/26/24 Melatonin [Melatonin*] 3 mg PO BEDTIME PRN PRN 06/26/24 Pantoprazole [Protonix Tab*] 40 mg PO BIDAC #0 tab 06/26/24 - Past Medical/Surgical History Diabetic: Yes -: HTN -: DM II -: CKD IIIb (Dr. Sauceda/ [place]) -: BPH with LUTS -: Ulcerative colitis -: Left BKA 2013 -: Cardiac stents Psychosocial/ Personal History: Patient is disabled, lives at home with his daughter - Family History Mother Medical History: Heart disease, Diabetes Father Medical History: Heart disease - Social History Smoking Status: Unknown if ever smoked Alcohol use: No CD- Drugs: No Caffeine use: No Place of Residence: Home Review of Systems 10-point ROS is otherwise unremarkable Physical Examination Temp Pulse Resp BP Pulse Ox 97.4 F 69 15 122/63 99 06/30/24 08:00 06/30/24 08:00 06/30/24 11:11 06/30/24 08:00 06/30/24 11:11 General: Alert, In no apparent distress, Other (on room air ) HEENT: Atraumatic Neck: Supple Respiratory: Clear to auscultation bilaterally, Normal air movement Cardiovascular: No edema, Normal pulses Gastrointestinal: Normal bowel sounds, Soft and benign, Non-distended Musculoskeletal: No clubbing, No swelling, Other (bilateral BKA ) Neurological: Normal speech, Cranial nerves 3-12 intact Conclusions/Impression: CKD stage 3-4 , HX of uncontrolled DM , current CR not far away from the baseline for the last 2 years .. UA with glucose only and no active sediment , US: wnl would check PVR given the hX of BPH avoid nephrotoxic meds , will trend the lab. already on SGLT2I HTN; has been stable grossly on BB and hydaralzine bilateral BKA , RT side was done 06/19/2024 , left side 2013 BPH: on flomax
--- NOTE | 2024-06-30 14:16 | P.RH.PN ---
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 Goal: Mobility, Transfers, Self Care Vital Signs: Last Vital Signs Temp 97.4 F 06/30/24 08:00 Pulse 69 06/30/24 08:00 Resp 15 06/30/24 11:11 BP 122/63 06/30/24 08:00 Pulse Ox 99 06/30/24 11:11 Laboratory: Laboratory Last Values WBC 7.10 thou/uL (4.3-10.9) 06/29/24 04:46 RBC 3.68 M/uL (4.33-5.43) L 06/29/24 04:46 Hgb 10.3 g/dL (13.6-17.9) L 06/29/24 04:46 Hct 31.1 % (39.6-49.0) L 06/29/24 04:46 MCV 84.4 fL (80-100) 06/29/24 04:46 MCH 27.9 pg (27.0-35.0) 06/29/24 04:46 MCHC 33.0 g/dL (32.0-36.0) 06/29/24 04:46 RDW 15.3 % (12.1-15.2) H 06/29/24 04:46 Plt Count 160 thou/uL (152-406) 06/29/24 04:46 MPV 10.8 fL (7.6-11.3) 06/29/24 04:46 Neutrophils % 52.0 % (41.7-73.7) 06/29/24 04:46 Lymphocytes % 31.1 % (15.3-44.8) 06/29/24 04:46 Monocytes % 11.2 % (3.3-12.3) 06/29/24 04:46 Eosinophils % 4.7 % (0-4.4) H 06/29/24 04:46 Basophils % 1.0 % (0-1.3) 06/29/24 04:46 Absolute Neutrophils 3.7 K/uL (1.8-8.0) 06/29/24 04:46 Absolute Lymphocytes 2.2 K/uL (0.7-4.9) 06/29/24 04:46 Absolute Monocytes 0.8 K/uL (0.1-1.3) 06/29/24 04:46 Absolute Eosinophils 0.3 K/uL (0-0.5) 06/29/24 04:46 Absolute Basophils 0.1 K/uL (0-0.5) 06/29/24 04:46 Sodium 140 mEq/L (136-145) 06/29/24 04:46 Potassium 4.5 mEq/L (3.5-5.1) 06/29/24 04:46 Chloride 111 mEq/L (98-107) H 06/29/24 04:46 Carbon Dioxide 25 mEq/L (21-32) 06/29/24 04:46 Anion Gap 8.5 mEq/L (5.0-15.0) 06/29/24 04:46 BUN 70 mg/dL (7-18) H 06/29/24 04:46 Creatinine 2.09 mg/dL (0.70-1.30) H 06/29/24 04:46 Est GFR (CKD-EPI) 35 ml/min (=/>90) L 06/29/24 04:46 Glucose 197 mg/dL (74-106) H 06/29/24 04:46 POC Glucose 167 mg/dL (65-120) H 06/30/24 10:43 Calcium 8.7 mg/dL (8.5-10.1) 06/29/24 04:46 Magnesium 2.7 mg/dL (1.6-2.4) H 06/29/24 04:46 Albumin 2.3 g/dL (3.4-5.0) L 06/29/24 04:46 Prealbumin 13.8 mg/dL (20-40) L 06/29/24 04:46 Urine Color Colorless (Yellow) 06/30/24 02:40 Urine Clarity Clear (Clear) 06/30/24 02:40 Urine pH 5.0 (5.0-7.0) 06/30/24 02:40 Ur Specific [place] 1.005 (1.005-1.030) 06/30/24 02:40 Glucose (UA)(Auto) 4+ (over) (Negative) H 06/30/24 02:40 Urine Ketones Negative (Negative) 06/30/24 02:40 Urine Blood Negative (Negative) 06/30/24 02:40 Urine Nitrite Negative (Negative) 06/30/24 02:40 Urine Bilirubin Negative (Negative) 06/30/24 02:40 Urine Urobilinogen Normal (Normal) 06/30/24 02:40 Ur Leukocyte Esterase Negative Emerita/uL (Negative) 06/30/24 02:40 Urine RBC <5 /HPF (None Seen) 06/26/24 18:30 Urine WBC <5 /HPF (<5) 06/26/24 18:30 Ur Squamous Epith Cells None seen /HPF (None Seen) 06/26/24 18:30 Unidentified Crystals Few /HPF (None Seen) 06/26/24 18:30 Urine Bacteria None seen /HPF (<20) 06/26/24 18:30 Hyaline Casts 0-5 /LPF (None Seen) 06/26/24 18:30 Urine Mucus Slight /HPF (None Seen) 06/26/24 18:30 Urine Yeast (Budding) Trace /HPF (None Seen) H 06/26/24 18:30 Urine Culture Reflexed Not needed 06/26/24 18:30 Ur Random Sodium Cancelled 06/30/24 05:00 Ur Random Potassium Cancelled 06/30/24 05:00 Ur Random Chloride Cancelled 06/30/24 05:00 Urine Total Protein Negative (Negative) 06/30/24 02:40 Weight: 177 lb 14.4 oz Wound Present: No Closed Surgical Incision Present: Yes Negative Pressure Wound Therapy Present: No Physician Update: Labs reviewed and has chronic kidney disease. Pain is well controlled with gabapentin. Difficulty getting in and out of a walk in shower. Met all occupational therapy goals. Very motivated. His home is set up for no legs. Kidney imaging studies are normal. Summary: Patient's care plan and alf goals have been reviewed and revised as necessary. Please see the Rehabilitation Signature page for all necessary signatures.
[2024-07-01] MEDS ORDERED: METOPROLOL XL 50 MG TAB PO ONE (04:09)
[2024-07-01 10:03] LABS: Anion Gap 9.7 mEq/L (5.0-15.0); Potassium 4.7 mEq/L (3.5-5.1)
--- NOTE | 2024-07-01 10:58 | P.PN ---
(S) Pt doing well in rehab, seen during session, reports Rt phantom limb pain better on Gabapentin (O) vitals reviewed in the EMR General: Alert, In no apparent distress, Cooperative HEENT: Atraumatic, Normocephalic Neck: Supple Respiratory: Clear to auscultation bilaterally, Normal air movement Cardiovascular: No edema, Regular rate/rhythm Gastrointestinal: Soft and benign, Non-distended, No tenderness Musculoskeletal: No contractures, Other (Lt BKA, Rt foot 4th toe amputation, some gangrene of wound bed, dressing in place so limited exam performed) Integumentary: Other (Xerosis, stasis dermatitis) Neurological: Normal speech, Normal tone, Normal affect Conclusions/Impression: Underlying CKD Stage IIIb, Cr level on admission is within baseline range but has long fluctuated on a regimen off HAROON inhibitors, diuretics/other 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
[2024-07-01] MEDS: HYDRALAZINE HCL 25 MG TABLET PO SCH (12:00)
[2024-07-02] MEDS: EMPAGLIFLOZIN PO SCH (08:00)
[2024-07-03] MEDS: EMPAGLIFLOZIN PO SCH (07:17)
[2024-07-03 21:17] VITALS: TEMP 97.5
--- NOTE | 2024-07-03 22:35 | PN ---
Date of Progress Note: 07/03/2024 Time Of Service: 1:30 p.m. Subjective: Mr. Connor is doing very well in the gym doing therapy. He has no new complaints. His right lower extremity phantom limb pain is well managed. He has prosthesis on left leg, making impro vements in terms of upper body strength with his mobilization transfers and is happy with his sleep a fter trazodone was added. He is happy again with gabapentin. Objective: No fevers, chills, nausea, vomiting. No significant myalgias, arthralgias. Physical Examination: Vital Signs: Blood pressure 138/61, pulse 65, respiratory rate 16, temperature 97.4, oxygen saturati on 99%. General: Mr. Connor is sitting in a chair in the gym. HEENT: He is normocephalic, atraumatic. Sclerae anicteric. Oropharynx pink, moist. Neck: Supple. Extremities: Right lower extremity is in a brace after the right below-knee amputation. Left, he goncalves s his prosthesis on from his chronic left below-knee amputation. Otherwise, no new findings. Laboratory Studies: Blood sugar ranged from 136 to 171. X-ray/imaging: No new x-rays or imaging. 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 Progress Made With Physical And Occupational Therapy: Today with physical therapy, he was able to am bulate 60 feet independently with a rolling walker and ascend and descend 13 steps, but required maxi mum assistance using bilateral handrails. In addition, did do wheelchair mobilization 300 feet and 2 00 feet with modified independence. Psx-yy-kztqn transfers done independently, multiple ydwfu-oe-smh ot transfers done independently. With occupational therapy, completed showering independently, clean ed and washed the buttocks, independent with upper body dressing, standby assistance for lower body d ressing. Assessment: Mr. Connor is a 64-year-old patient in the rehabilitation unit with right foot gangrene, status post amputation by Dr. Parrish and he is following up with Dr. Parrish. He does have comor bidities of diabetes mellitus, dyslipidemia, constipation, prostate hypertrophy, insomnia, neuropathi c pain, mild malnutrition, and constipation. Plan: He will continue with physical and occupational therapy until the patient is discharged which will be in the morning. We will have his comorbid condition medications continued. He will follow u p with Dr. Parrish for the right lower extremity staple removal and other appropriate changes as req uired. Follow up with primary care physician for continuing his medications. He is given a prescrip tion for trazodone, gabapentin, those are new. He is doing very well with that. Again, all other me dications continued and ready for discharge in the morning. He will have therapy continued via Home Health. [place] Voice ID: [id number] Report ID: [id number]
[2024-07-04 06:19] LABS: Anion Gap 7.9 mEq/L (5.0-15.0); Magnesium 2.7 mg/dL (1.6-2.4); Potassium 4.9 mEq/L (3.5-5.1)
[2024-07-04 06:58] VITALS: BP 123/60
--- NOTE | 2024-07-04 12:11 | P.PN ---
(S) Pt doing well in rehab, reports Rt phantom limb pain better on Gabapentin, labs stable, plan for discharge noted (O) vitals reviewed in the EMR General: Alert, In no apparent distress, Cooperative HEENT: Atraumatic, Normocephalic Neck: Supple Respiratory: Clear to auscultation bilaterally, Normal air movement Cardiovascular: No edema, Regular rate/rhythm Gastrointestinal: Soft and benign, Non-distended, No tenderness Musculoskeletal: No contractures, Other (Lt BKA, Rt foot 4th toe amputation, some gangrene of wound bed, dressing in place so limited exam performed) Integumentary: Other (Xerosis, stasis dermatitis) Neurological: Normal speech, Normal tone, Normal affect Conclusions/Impression: Underlying CKD Stage IIIb, Cr level on admission is within baseline range but has long fluctuated on a regimen off HAROON inhibitors, diuretics/other 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 Stage 1 MANPREET last week prob due to some pre-renal element -Lowered Jardiance dose to 1/2 tab as pt was on the larger 25 mg dose, renal function tests back to baseline, cont to trend as OP HTN with CKD -Currently holding ACEi/ARB and BP controlled, will look to resume as OP, given hx of proteinuria although also has a hx of recurrent hyperkalemia DM II with CKD -Strict control of DM needed, weight/A1c had improved sig on GLP-1 RA overall but pt with other complications including PAD/DFU Right 4th toe gangrene with foot cellulitis s/p amputation 05-31-24 Staph bacteremia, leukocytosis then Then with poor healing, gangrene of the wound site -S/p BKA, management per surgery/wound care post discharge
--- NOTE | 2024-07-04 23:30 | DS ---
Date of Discharge: 07/04/2024 Discharge Condition: Good. Allergies: NO KNOWN DRUG ALLERGIES. Discharge Diagnoses: Right foot gangrene, status post right iiull-yep-diqe amputation, on antibiotic s, completed, chronic left ckhfc-iil-czsv amputation, diabetes mellitus, hypertension, neuropathic pa in, phantom limb pain, malnutrition, anemia, dyslipidemia, prostate hypertrophy with urinary retentio n, constipation. Medications: Trazodone 50 mg at bedtime, Ultram 50 mg every 6 hours as needed, Flomax 0.4 mg daily, Senokot-S 2 at bedtime, Crestor 5 mg daily, Protonix 40 mg daily, Toprol-XL 100 mg daily, melatonin 3 mg at bedtime, Semglee insulin 20 units at bedtime, Apresoline 25 mg twice daily, gabapentin 300 mg twice daily, Glucerna shake 237 mL twice daily, Colace 100 mg twice daily, Eliquis was at 2.5 mg twic e daily, amino acid, ProSource NoCarb Liquid packet 30 mL twice daily, Marina 7.5/325 every 4 hours as needed. Equipment recommended for discharge; a wheelchair, a tub transfer bench, sliding board for transfer, and pool table mechanic equipment for lower body dressing, donning and doffing of prosthesis. Laboratory Studies: White blood cell count 7.1, hemoglobin 10.3, hematocrit 31.1, platelets 160. So dium 139, potassium 4.9, chloride 111, carbon dioxide 25, BUN 42, creatinine 1.64, glucose range 119 to 190, calcium 8.6, magnesium 2.7. Followup: With Dr. Parrish, general surgeon, and primary care physician and Renal Service to follow the patient while in the hospital. Synopsis Of Events That Led To Admission: Mr. Connor is a 64-year-old patient with poorly controlled diabetes mellitus, hypertension, chronic kidney disease stage III, benign prostatic hypertrophy, ulc erative colitis, who had a prior left below-knee amputation in 2013 due to gangrene and had worsening nonhealing wounds in the right lower extremity that led to gangrene and ultimately left below-knee a mputation on June 19, 2024. He subsequently was evaluated by the Therapy Service and found to re quire moderate to maximum assistance for basic activities of daily living, transferring, mobilizing, and required ongoing antibiotics to control the worsening infection which was significantly mitigated by the amputation. He was therefore found to be an excellent candidate for inpatient rehabilitation and then was admitted for physical, occupational, and if need be speech therapy. Hospital Course: Throughout hospitalization, he was maintained on antibiotics which were managed rolando kidd by Dr. Parrish. He was also followed by the Renal Service that addressed his renal insuffici ency at stage III. His dyslipidemia addressed with Crestor, hypertension addressed, diabetes mellitu s addressed, and blood sugars did range by discharge from 119 to 190. Magnesium was slightly elevate d. His creatinine remained around 1.6 by discharge and malnutrition was addressed with protein suppl ementation to help promote healing. His imaging studies include renal ultrasound by the Renal Servic e, showed no abnormalities in terms of renal size, but of course, renal dysfunction is present. Progress Made With Physical And Occupational Therapy: By his time of discharge, Mr. Connor is able t o ascend and descend 4 steps with contact guard assistance using bilateral handrails. He did a car t ransfer stimulated with independence using a rolling walker, toilet transfers done independently, and he was able to go up and down the stairs with cues and was pretty steady as he did so. Regarding hi s distances, he was able to propel a wheelchair 200 feet with modified independence and he completed puq-sk-spmvv transfers independently, multiple qizlx-nw-eaymg transfers done independently. Furtherm ore, he did gait, ambulated 60 feet independently with a rolling walker and multiple vzwwl-ym-lwxqv t ransfers were done independently. With his occupational therapy, he was showering independently, adj usting over temperature without issues. He was independent with upper body dressing, standby assista nce required for lower body dressing. He was able to don and doff his left prosthesis independently, which he had been doing for many years. Please note, durable medical equipment recommendations to include the tub transfer bench as the patie nt does have a high risk of falling given his right vargc-hdg-sonm amputation is acute, has chronic l eft nxjhs-hqm-egew amputation, for which he has prosthesis that gives little sensory input. He does have diabetic neuropathies involving upper extremities. Currently, this is mitigated and he is able to do very well using a tub transfer bench while in hospital, also sliding board, did very well with that. Transfers, kmciq-gq-zztut, doing very well with that, but again needs a tub transfer bench to help reduce risk of his falling while he is getting in and out of the tub shower. The patient will b e again followed up by his primary care physician and Dr. Parrish. [place] Voice ID: [id number] Report ID: [id number]
== END 2024-07-04 13:05 | disposition home health service (06) | DRG 560 ==
LOC: 5TH 16:05
PROVIDERS: ADMIT Psychiatry & Neurology Neurology with Special Qualifications in Child Neurology; ATTEND Psychiatry & Neurology Neurology with Special Qualifications in Child Neurology
DX: Z47.81 Encounter for orthopedic aftercare following surgical amputation (principal); E11.52 Type 2 diabetes mellitus with diabetic peripheral angiopathy with gangrene; K51.90 Ulcerative colitis, unspecified, without complications; E46 Unspecified protein-calorie malnutrition; I96 Gangrene, not elsewhere classified; N17.9 Acute kidney failure, unspecified; Z89.511 Acquired absence of right leg below knee; N40.0 Benign prostatic hyperplasia without lower urinary tract symptoms; E11.22 Type 2 diabetes mellitus with diabetic chronic kidney disease; I12.9 Hypertensive chronic kidney disease with stage 1 through stage 4 chronic kidney disease, or unspecified chronic kidney disease; E78.5 Hyperlipidemia, unspecified; K59.00 Constipation, unspecified; N40.1 Benign prostatic hyperplasia with lower urinary tract symptoms; R33.8 Other retention of urine; G54.6 Phantom limb syndrome with pain; N18.32 Chronic kidney disease, stage 3b; G47.00 Insomnia, unspecified; Z68.30 Body mass index [BMI] 30.0-30.9, adult
CPT/HCPCS: 36415; 76770; 80048; 81001; 81003; 82040; 82435; 82947; 83735; 84132; 84134; 84300; 85025; 87086; 87088; 94010; 97110; 97116; 97163; 97165; 97530; 97542

== ENCOUNTER 2024-12-20 19:26 | Observation (INO) | payer OTHER ==
[2024-12-20 21:18] LABS: Absolute Basophils 0.1 K/uL (0-0.5); Absolute Eosinophils 0.4 K/uL (0-0.5); Absolute Lymphocytes (CBC) 2.9 K/uL (0.7-4.9); Absolute Monocytes 0.7 K/uL (0.1-1.3); Absolute Neutrophil 4.1 K/uL (1.8-8.0); Eosinophils % 5.2 % (0-4.4); Hematocrit 37.3 % (39.6-49.0); Hemoglobin 12.3 g/dL (13.6-17.9); Lymphocytes % 34.9 % (15.3-44.8); MCH 27.3 pg (27.0-35.0); MCHC 33.1 g/dL (32.0-36.0); MCV 82.5 fL (80-100); MPV 10.7 fL (7.6-11.3); Monocytes % 8.8 % (3.3-12.3); Neutrophils % 50.1 % (41.7-73.7); Platelets 86 thou/uL (152-406); RBC Red Blood Cell Count 4.52 M/uL (4.33-5.43); Red Cell Distribution Width 21.2 % (12.1-15.2)
[2024-12-20 21:37] LABS: Albumin 3.4 g/dL (3.4-5.0); Albumin/Globulin Ratio 0.9 (1.1-1.8); Anion Gap 9.7 mEq/L (5.0-15.0); Bilirubin Total 0.6 mg/dL (0.2-1.0); Potassium 5.7 mEq/L (3.5-5.1); Protein, Total 7.4 g/dL (6.4-8.2)
[2024-12-20 22:00] LABS: Platelet Estimate DECR; White Blood Cell Scan OK (OK)
[2024-12-20 22:01] LABS: Anisocytosis 1+; Blood Morphology Comment NOTED (NOT SEEN); Macrocytosis 1+; Ovalocytes SLIGHT
[2024-12-20] MEDS ORDERED: INSULIN REGULAR (HUMAN) 100 UNIT/ML ONE (22:22)
[2024-12-20] MEDS ORDERED: SOD POLYSTYREN SUL 15 GM/60 ML UCUP ONE (22:22)
[2024-12-20] MEDS ORDERED: D50W 25 GM/50 ML SYRINGE IV ONE (22:23)
--- NOTE | 2024-12-20 22:28 | ER ---
Nurse's Notes [facility] Name: Ranjit Connor Age: 64 yrs Sex: Male : 1960 Arrival Date: 12/20/2024 Time: 19:26 Bed 3 Private MD: Diagnosis: Hyperkalemia;Chronic kidney disease, unspecified Presentation: 12/20 19:43 Chief complaint: Patient states: had blood work done today and potassium was 6.3, dr bob garcia recommended he come to the ER for treatment. Coronavirus screen: At this time, the client does not indicate any symptoms associated with coronavirus-19. Ebola Screen: No symptoms or risks identified at this time. Initial Sepsis Screen: Does the patient meet any 2 criteria? No. Patient's initial sepsis screen is negative. Does the patient have a suspected source of infection? No. Patient's initial sepsis screen is negative. Risk Assessment: Do you want to hurt yourself or someone else? Patient reports no desire to harm self or others. Onset of symptoms was December 20, 2024. 19:43 Method Of Arrival: Wheelchair al5 19:43 Acuity: ALEXANDER 3 al5 Triage Assessment: 19:48 General: Appears in no apparent distress. comfortable, Behavior is calm, cooperative. al5 Pain: Denies pain. EENT: No signs and/or symptoms were reported regarding the EENT system. Neuro: Level of Consciousness is awake, alert, obeys commands, Oriented to person, place, time, situation. Cardiovascular: Capillary refill < 3 seconds Patient's skin is warm and dry. Respiratory: Airway is patent Respiratory effort is even, unlabored, Respiratory pattern is regular, symmetrical. GI: No signs and/or symptoms were reported involving the gastrointestinal system. : No signs and/or symptoms were reported regarding the genitourinary system. Derm: Skin is intact, is healthy with good turgor, Skin is pink, warm \T\ dry. normal. Musculoskeletal: Amputation of Other: bilateral BKA. Historical: - PSHx: 19:46 Stented artery; BKA bilateral; al5 - Immunization history:: Adult Immunizations up to date. - Infectious Disease History:: Denies. - Social history:: Smoking status: Patient denies any tobacco usage or history of. Screenin:47 [facility] ED Fall Risk Assessment (Adult) History of falling in the last 3 months, al5 including since admission No falls in past 3 months (0 pts) Confusion or Disorientation No (0 pts) Intoxicated or Sedated No (0 pts) Impaired Gait Yes (1 pt) Mobility Assist Device Used Yes (1 pt) Altered Elimination No (0 pt) Score/Fall Risk Level 0 - 2 = Low Risk Oriented to surroundings, Maintained a safe environment, Hourly rounding (assess needs \T\ fall precautionary measures) done. Abuse screen: Denies threats or abuse. Denies injuries from another. Nutritional screening: No deficits noted. Tuberculosis screening: No symptoms or risk factors identified. Assessment: 19:46 Reassessment: see triage assessment. al5 22:40 Reassessment: Patient appears in no apparent distress at this time. Patient and/or bm8 family updated on plan of care and expected duration. Pain level reassessed. Patient is alert, oriented x 3, equal unlabored respirations, skin warm/dry/pink. Patient denies pain at this time. Patient states feeling better. 12/21 00:24 Reassessment: Patient appears in no apparent distress at this time. Patient and/or bm8 family updated on plan of care and expected duration. Pain level reassessed. Patient is alert, oriented x 3, equal unlabored respirations, skin warm/dry/pink. Patient denies pain at this time. Patient states feeling better. Vital Signs: 12/20 19:43 BP 157 / 63; Pulse 67; Resp 16; Temp 98.3; Pulse Ox 100% on R/A; Weight 84.82 kg; al5 Height 5 ft. 6 in. ; 21:16 BP 141 / 58; Pulse 65; Resp 18; Temp 98.3; Pulse Ox 99% ; Pain 5/10; bm8 22:40 BP 169 / 71; Pulse 70; Resp 18; Temp 98.3; Pulse Ox 98% ; Pain 0/10; bm8 12/21 00:24 BP 145 / 62; Pulse 61; Resp 18; Temp 98.3; Pulse Ox 99% ; Pain 0/10; bm8 12/20 19:43 Body Mass Index 30.18 (84.82 kg, 167.64 cm) al5 21:16 Pain Scale: Adult bm8 22:40 Pain Scale: Adult bm8 12/21 00:24 Pain Scale: Adult bm8 [place] Coma Score: 12/20 21:16 Eye Response: spontaneous(4). Motor Response: obeys commands(6). Verbal Response: bm8 oriented(5). Total: 15. 22:40 Eye Response: spontaneous(4). Motor Response: obeys commands(6). Verbal Response: bm8 oriented(5). Total: 15. ED Course: 19:31 Patient arrived in ED. im 19:34 [facility]C [facility] kb 19:34 Donald Gutierres MD is Attending Physician. kb 19:46 Triage completed. al5 19:47 Patient has correct armband on for positive identification. Provided Education on: plan al5 of care. 19:47 No provider procedures requiring assistance completed. al5 19:49 Arm band placed on right wrist. Patient placed in the treatment room, in view of staff al5 members, on pulse oximetry. 20:59 Lulu Navarrete, PERRY is Primary Nurse. kd3 20:59 Inserted saline lock: 20 gauge in left antecubital area, using aseptic technique. Blood kmf collected. Flushed with 10 mL NS. 22:27 Prince Bergman MD is Hospitalizing Provider. kb 12/21 00:26 Patient admitted, IV remains in place. bm8 Administered Medications: 12/20 22:39 Drug: D50W IVP 50 ml IVP once; (1 amp) Route: IVP; Site: left antecubital; bm8 12/21 00:27 Follow up: Response: No adverse reaction bm8 12/20 22:39 Drug: Kayexalate PO 30 grams PO once Route: PO; bm8 12/21 00:26 Follow up: Response: No adverse reaction bm8 12/20 22:40 Drug: Insulin Regular Human IVP 5 units IVP once {Co-Signature: odette (Lulu Navarrete RN).} Route: IVP; Site: left antecubital; 12/21 00:27 Follow up: Response: No adverse reaction bm8 Medication: 12/20 19:47 VIS not applicable for this client. al5 Outcome: 22:28 Decision to Hospitalize by Provider. kb 12/21 00:26 Admitted to Med/surg accompanied by nurse, via wheelchair, room 210, with chart, bm8 Condition: stable Instructed on the need for admit, Demonstrated understanding of instructions, follow-up care, medications, 01:02 Patient left the ED. kd3 Signatures: Dorita Bunch FNP-C CRITICAL CARE NURSE SPECIALIST-Lulu Clayton, RN RN kd3 Kenyetta Blackmon Kelsey Maroul [facility] Adair Hallman RN RN bm8 Verito Castillo RN RN al5 Lulu Navarrete RN kd3 Corrections: (The following items were deleted from the chart) 12/20 19:48 19:46 Allergies: No Known Allergies; al5 al5 19:48 19:46 Home Meds: Apriso 0.375 gram Oral cp24 4 caps once daily; al5 al5 19:48 19:46 Home Meds: Dexilant 60 mg Oral CpDB 1 cap once daily; al5 al5 19:48 19:46 Home Meds: metoprolol tartrate 100 mg oral tablet; al5 al5 19:48 19:46 Home Meds: tamsulosin 0.4 mg Oral cap 1 cap once daily; al5 al5 19:48 19:46 Home Meds: montelukast 10 mg Oral tab 1 tab once daily; al5 al5 19:48 19:46 PMHx: Diabetes - IDDM; al5 al5 19:48 19:46 PMHx: Glaucoma; al5 al5 19:48 19:46 PMHx: Hypertension; al5 al5 19:48 19:46 PMHx: ulcerative colitis; al5 al5 19:48 19:46 PSHx: BKA - left; al5 al5 20:03 20:02 Reassessment: al5 al5
--- NOTE | 2024-12-20 22:28 | EDPHYS ---
Physician Documentation [facility] Name: Ranjit Connor Age: 64 yrs Sex: Male : 1960 Arrival Date: 12/20/2024 Time: 19:26 Bed 3 Private MD: ED Physician Donald Gutierres HPI: 12/20 22:24 This 64 yrs old Male presents to ER via Wheelchair with complaints of Abnormal kb Lab Results. 22:24 Patient is a 64-year-old male who presents for abnormal lab values. Patient states he kb had labs drawn by [email or web address] this morning, ordered by Dr. Sauceda. Dr. Sauceda called in this evening and said that his potassium was 6.3. Told him to come to the ER for treatment. Patient denies any symptoms and has no complaints.. Historical: - PSHx: 19:46 Stented artery; BKA bilateral; al5 - Immunization history:: Adult Immunizations up to date. - Infectious Disease History:: Denies. - Social history:: Smoking status: Patient denies any tobacco usage or history of. ROS: 22:23 Constitutional: As per HPI kb Exam: 22:20 Constitutional: This is a well developed, well nourished patient who is awake, alert, kb and in no acute distress. Head/Face: Normocephalic, atraumatic. ENT: Moist Mucous membranes Cardiovascular: Regular rate Respiratory: Respirations even and unlabored. No increased work of breathing. Talking in full sentences Abdomen/GI: Soft, non-tender. No distention Skin: Warm, dry with normal turgor. Normal color. MS/ Extremity: Pulses equal, no cyanosis. Neurovascular intact. Full, normal range of motion. Neuro: Awake and alert, GCS 15, oriented to person, place, time, and situation. 22:20 ECG was reviewed by the Attending Physician. Vital Signs: 19:43 BP 157 / 63; Pulse 67; Resp 16; Temp 98.3; Pulse Ox 100% on R/A; Weight 84.82 kg; al5 Height 5 ft. 6 in. ; 21:16 BP 141 / 58; Pulse 65; Resp 18; Temp 98.3; Pulse Ox 99% ; Pain 5/10; bm8 22:40 BP 169 / 71; Pulse 70; Resp 18; Temp 98.3; Pulse Ox 98% ; Pain 0/10; bm8 12/21 00:24 BP 145 / 62; Pulse 61; Resp 18; Temp 98.3; Pulse Ox 99% ; Pain 0/10; bm8 12/20 19:43 Body Mass Index 30.18 (84.82 kg, 167.64 cm) al5 21:16 Pain Scale: Adult bm8 22:40 Pain Scale: Adult bm8 12/21 00:24 Pain Scale: Adult bm8 Adrien Coma Score: 12/20 21:16 Eye Response: spontaneous(4). Motor Response: obeys commands(6). Verbal Response: bm8 oriented(5). Total: 15. 22:40 Eye Response: spontaneous(4). Motor Response: obeys commands(6). Verbal Response: bm8 oriented(5). Total: 15. MDM: 19:34 Medical Screening Exam initiated kb 22:26 Data reviewed: vital signs, nurses notes. kb 22:26 Differential diagnosis: Hyperkalemia, abnormal EKG, acute on chronic kidney failure. kb Consideration of Admission/Observation Patient was admitted/placed on observation. Escalation of care including admission/observation considered. Management of patient was discussed with the following: Hospitalist: Dr. Bergman accepts patient for admission. Care significantly affected by the following chronic conditions: Chronic Kidney Disease. Counseling: I had a detailed discussion with the patient and/or guardian regarding the historical points, exam findings, and any diagnostic results supporting the discharge/admit diagnosis, lab results, the need for further work-up and treatment in the hospital. 12/20 19:47 Order name: CBC with Diff; Complete Time: 22:14 kb 12/20 19:47 Order name: CMP; Complete Time: 21:38 kb 12/20 21:21 Order name: CBC Smear Scan; Complete Time: 22:14 EDMS 12/20 23:39 Order name: Basic Metabolic Panel EDMS 12/20 23:39 Order name: Basic Metabolic Panel EDMS 12/20 23:39 Order name: CBC with Automated Diff EDMS 12/20 23:39 Order name: CBC with Automated Diff EDMS 12/20 23:39 Order name: Troponin High Sensitivity EDMS 12/20 23:39 Order name: Troponin High Sensitivity EDMS 12/20 23:39 Order name: Troponin High Sensitivity EDMS 12/20 23:39 Order name: Troponin High Sensitivity EDMS 12/20 23:39 Order name: Troponin High Sensitivity EDMS 12/20 23:39 Order name: Echo with Doppler EDMS 12/20 19:47 Order name: EKG; Complete Time: 19:48 kb 12/20 19:47 Order name: IV Start; Complete Time: 21:16 kb 12/20 19:47 Order name: EKG - Nurse/Tech; Complete Time: 21:16 kb EC:20 Rate is 67 beats/min. Rhythm is regular. QRS Bonita is Normal. WV interval is normal at kb 158 msec. QRS interval is normal at 80 msec. QT interval is normal at 414 msec. Administered Medications: 22:39 Drug: D50W IVP 50 ml IVP once; (1 amp) Route: IVP; Site: left antecubital; [facility] 12/21 00:27 Follow up: Response: No adverse reaction [facility] 12/20 22:39 Drug: Kayexalate PO 30 grams PO once Route: PO; [facility] 12/21 00:26 Follow up: Response: No adverse reaction [facility] 12/20 22:40 Drug: Insulin Regular Human IVP 5 units IVP once {Co-Signature: [email or web address] (Lulu Navarrete RN).} Route: IVP; Site: left antecubital; 12/21 00:27 Follow up: Response: No adverse reaction 8 Disposition Summary: 12/20/24 22:28 Hospitalization Ordered Notes: Hospitalization Status: Observation Provider: Prince larry Bergman Location: Telemetry/MedSurg (observation) kb Condition: Stable kb Problem: new kb Symptoms: are unchanged kb Bed/Room Type: Standard Room Assignment: 210(12/21/24 00:10) rv1 Diagnosis - Hyperkalemia kb - Chronic kidney disease, unspecified kb Forms: - Medication Reconciliation Form kb - SBAR form kb - Leadership Thank You Letter Critical care time excluding procedures: 00:03 Critical care time: Bedside Care: 15 minutes, Consultation: 15 minutes. Total time: 30 kb minutes Addendum: 12/22/2024 02:21 Co-signature as Attending Physician, Donald Gutierres MD I reviewed the patient's care r t provided by the Advanced Practice Provider and agree with the diagnosis and treatment plan. Signatures: Dispatcher [employer] EDDorita Paulson, GROCERY TEAM MEMBER-C GROCERY TEAM MEMBER-Ckb Donald Gtuierres MD MD rt Brenda Hung rv1 Adair Hallman, RN RN bm8 Verito Castillo RN RN al5 Lulu Navarrete RN kd3 Corrections: (The following items were deleted from the chart) 12/20 19:48 19:46 Allergies: No Known Allergies; al5 al5 19:48 19:46 Home Meds: Apriso 0.375 gram Oral cp24 4 caps once daily; al5 al5 19:48 19:46 Home Meds: Dexilant 60 mg Oral CpDB 1 cap once daily; al5 al5 19:48 19:46 Home Meds: metoprolol tartrate 100 mg oral tablet; al5 al5 19:48 19:46 Home Meds: tamsulosin 0.4 mg Oral cap 1 cap once daily; al5 al5 19:48 19:46 Home Meds: montelukast 10 mg Oral tab 1 tab once daily; al5 al5 19:48 19:46 PMHx: Diabetes - IDDM; al5 al5 19:48 19:46 PMHx: Glaucoma; al5 al5 19:48 19:46 PMHx: Hypertension; al5 al5 19:48 19:46 PMHx: ulcerative colitis; al5 al5 19:48 19:46 PSHx: BKA - left; al5 al5 12/21 00:10 12/20 22:28 kb rv1
[2024-12-20] MEDS ORDERED: NITROGLYCERIN 0.4 MG/TAB SL PRN (23:35)
[2024-12-20] MEDS: INSULIN REGULAR (HUMAN) 100 UNIT/ML IV ONE (23:37)
[2024-12-20] MEDS: SODIUM ZIRCONIUM CYCLOSILICATE 10 GM/PKT PO ONE (23:37)
[2024-12-20] MEDS: D50W 25 GM/50 ML SYRINGE IV ONE (23:38)
--- NOTE | 2024-12-20 23:44 | P.HP ---
Certification for Inpatient Patient admitted to: Observation With expected LOS: <2 Midnights Practitioner: I am a practitioner with admitting privileges, knowledge of patient current condition, hospital course, and medical plan of care. Services: Services provided to patient in accordance with Admission requirements found in Title 42 Section 412.3 of the Code of Federal Regulations Patient History Date of Service: 12/20/24 Reason for admission: Hyperkalemia and chest History of Present Illness: Patient is a 64-year-old male with a known past medical history of morb id obesity and CKD stage III. Presented to the ER upon recommendation by his collar pointer after outpatient blood work revealed hyperkalemia. Patient is taking losartan. He reportedly had a potassium of 6.3. Patient states that a home health nurse came by his house to draw blood and was later called by his nephrology with the above values. He was instructed to take 10 mg of Lokelma present to the ER. His potassium upon presentation was 5.7. Patient's EKG findings not concerning for hyperkalemia. Received Lokelma in the ER. Will also go ahead and give IV insulin/D50. During my evaluation, patient complained of chest pain and palpitations. 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 Obtaining troponin now. Will admit under observation. Allergies No Known Allergies Allergy (Verified 06/26/24 18:34) Home Medications: Metoprolol Succinate [Toprol Xl*] 100 mg PO DAILY 04/15/22 Tamsulosin [Flomax*] 0.4 mg PO DAILY 04/15/22 Empagliflozin [Jardiance] 25 mg PO DAILY 04/06/23 Rosuvastatin Calcium 5 mg PO DAILY 04/06/23 traMADol HCL [Ultram*] 50 mg PO Q6H PRN 10 Days #20 tab 06/03/24 Mesalamine [Apriso] 1.5 gm PO DAILY 06/18/24 Arformoterol Tartrate [Brovana] 15 mcg NEB BIDRESP vial.neb 06/26/24 Docusate [Colace Cap*] 100 mg PO BID cap 06/26/24 Docusate/Senna [Senokot-S*] 2 tab PO BEDTIME PRN 06/26/24 Hydralazine [Apresoline*] 25 mg PO BID tab 06/26/24 Hydrocodone 7.5/APAP 325 [[place] 7.5/325 mg*] 1 tab PO Q4H PRN tab 06/26/24 Insulin Glargine,Hum.rec.anlog [Semglee] 20 unit SQ 30 MIN BEFORE HS ml 06/26/24 Melatonin [Melatonin*] 3 mg PO BEDTIME PRN PRN 06/26/24 Pantoprazole [Protonix Tab*] 40 mg PO BIDAC #0 tab 06/26/24 Glucerna Shake [Glucerna*] 237 ml PO BID can 07/03/24 Trazodone [Desyrel*] 50 mg PO BEDTIME #30 07/03/24 - Past Medical/Surgical History Diabetic: Yes -: HTN -: DM II -: CKD IIIb (Dr. Sauceda/ [place]) -: BPH with LUTS -: Ulcerative colitis -: Left BKA 2013 -: Cardiac stents Psychosocial/ Personal History: Patient is disabled, lives at home with his daughter - Family History Mother -: Heart disease, Diabetes Father -: Heart disease - Social History Alcohol use: No CD- Drugs: No Caffeine use: No Physical Examination - Physical Exam General: Acute distress, Obese HEENT: Atraumatic, Normocephalic Respiratory: Clear to auscultation bilaterally, Normal air movement Cardiovascular: No edema, Normal pulses, Regular rate/rhythm, Normal S1 S2 Neurological: Normal speech - Studies Laboratory Data (last 24 hrs) 12/20/24 12/20/24 21:05 21:05 WBC 8.20 Hgb 12.3 L Hct 37.3 L Plt Count 86 L Sodium 138 Potassium 5.7 H BUN 60 H Creatinine 2.67 H Glucose 95 Total Bilirubin 0.6 AST 40 H ALT 55 Alkaline Phosphatase 92 Assessment and Plan - Problems (Diagnosis) (1) Hyperkalemia Current Visit: Yes Status: Acute (2) Chest pain Current Visit: Yes Status: Acute (3) BPH (benign prostatic hyperplasia) Current Visit: No Status: Acute (4) CAD (coronary artery disease) Current Visit: No Status: Acute (5) CKD (chronic kidney disease) stage 3, GFR 30-59 ml/min Current Visit: No Status: Acute (6) Diabetes mellitus, type II Current Visit: No Status: Acute (7) Diabetic neuropathy Current Visit: No Status: Acute (8) HTN (hypertension) Current Visit: No Status: Acute - Plan Assessment This is 64-year-old male with known history of CKD stage III, hypertension type 2 diabetes mellitus. Was found to have a potassium of 6.3 after blood work early today by home health nurse. Patient took 10 mg of Lokelma after being instructed by his collar pointer and was referred to the ER for further management. He has a potassium of 5.7 upon arrival. He is complaining of chest pain and palpitations. Additional workup also revealed worsening renal function Hyperkalemia Acute on chronic CKD stage III Type 2 diabetes mellitus Hypertension Obesity Plan: Will admit under observation with telemetry Obtain troponin and trend troponin 2D echo ordered. Last echo last year revealed diastolic dysfunction Will consult cardiology if troponin is elevated Hyperkalemia most likely from losartan and worsening kidney dysfunction IV fluid infusion ordered Will give a dose of Lokelma, IV insulin/D50 Repeat BMP in the morning Patient can be discharged tomorrow if clinically stable Resume rest of home medication upon reconciliation - Advance Directives Does patient have a Living Will: No Does patient have a Durable POA for Healthcare: No
[2024-12-21] MEDS: HEPARIN 5000 UNIT/ML 1 ML VIAL SQ ONE (01:00)
[2024-12-21 02:20] VITALS: BMI 30.2
[2024-12-21] MEDS: NA CHLORIDE 0.9% 1,000 ML IV SCH (03:31)
[2024-12-21] MEDS: HYDROMORPHONE HCL 1 MG/ML INJ IV ONE (06:08)
[2024-12-21 07:06] LABS: Absolute Basophils 0.1 K/uL (0-0.5); Absolute Eosinophils 0.4 K/uL (0-0.5); Absolute Lymphocytes (CBC) 2.4 K/uL (0.7-4.9); Absolute Monocytes 0.6 K/uL (0.1-1.3); Absolute Neutrophil 4.9 K/uL (1.8-8.0); Eosinophils % 4.8 % (0-4.4); Hematocrit 34.2 % (39.6-49.0); Hemoglobin 11.1 g/dL (13.6-17.9); Lymphocytes % 28.5 % (15.3-44.8); MCH 26.9 pg (27.0-35.0); MCHC 32.5 g/dL (32.0-36.0); MCV 82.9 fL (80-100); MPV 11.2 fL (7.6-11.3); Monocytes % 7.1 % (3.3-12.3); Neutrophils % 58.6 % (41.7-73.7); Platelets 83 thou/uL (152-406); RBC Red Blood Cell Count 4.13 M/uL (4.33-5.43); Red Cell Distribution Width 21.2 % (12.1-15.2)
--- NOTE | 2024-12-21 07:34 | P.PN ---
Date of Service: 12/21/24 Subjective: presented after getting routine labwork with Dr. Sauceda which noted hyperkalemia feeling close to his baseline self Breathing comfortably on room air reported chest pain associated with palpitations prior to arrival states hes been dealing with this discomfort intermittently for years since he had stents placed ~2 years ago Physical Exam: GEN: Alert, oriented, NAD CV: Regular rate and rhythm, no edema Pulm: Nonlabored respirations on room air, clear bilaterally ABD: soft, nontender, nondistended MSK: Bilateral BKA Neuro: Normal speech, normal affect Problem List: MANPREET on CKD3 Hyperkalemia, resolved Chest pain IDDM2 Hypertension Hx PAD s/p right BKA (06/2024) Hx CAD s/p PCI (2022) Hx BPH with LUTS Hx ulcerative colitis / GERD MANPREET on CKD3 Hyperkalemia, resolved on admission, presents per Dr. Sauceda recs after outpatient labs revealed hyperkalemia (6.3 reportedly) Instructed to take 10 mg Lokelma and come to ER for further eval Reports chest pain associated with palpitations on ER arrival Was also told to stop taking his home losaran by Nephro prior to admission Creatinine 2.67, Potassium 5.7 on admission s/p Kayexelate in ED Nephrology consulted continue IV fluids Continue to monitor renal function, electrolytes Creatinine improving, Hyperkalemia resolved Baseline Cr ~1.9-2 per past recs Chest pain Hx CAD s/p PCI (2022) Reports chest pain associated with palpitations on ER arrival states hes been dealing with this discomfort intermittently for years since he had stents placed ~2 years ago Chest pain is not different from his chronic pain he deals with at home Last got [facility] when he had stents placed in 2022 Trend troponins Monitor on telemetry Cardio consult resume home plavix, asa 81 mg Echo ordered to eval EF / stenosis prior echo from Jun 2024 noted normal EF, grade 1 diastolic dysfunction IDDM2 accu-cheks, SSI confirm home insulin regimen Hx PAD s/p right BKA (06/2024) sees Dr. Parrish at the [facility] weekly. Most recently on 12/19 Continue local wound care Hypertension Hx BPH with LUTS Hx ulcerative colitis / GERD confirm home meds, restart as appropriate VTE: Heparin sq Code: Full Dispo: Home pending further workup, Nephro/Cardio recs Time Spent Managing Pts Care (In Minutes): 55
[2024-12-21] MEDS: HEPARIN 5000 UNIT/ML 1 ML VIAL SQ SCH (09:00)
[2024-12-21] MEDS: CLOPIDOGREL 75 MG TABLET PO SCH (09:32)
[2024-12-21] MEDS: ASPIRIN 81 MG CHEWABLE TABLET PO SCH (09:32)
[2024-12-21 10:05] VITALS: TEMP 97.9
[2024-12-21 10:31] VITALS: O2SAT 98
[2024-12-21] MEDS: SODIUM ZIRCONIUM CYCLOSILICATE 10 GM/PKT PO ONE (12:25)
[2024-12-21] MEDS: HYDRALAZINE HCL 25 MG TABLET PO SCH (14:49)
[2024-12-21 17:04] VITALS: BP 166/71
--- NOTE | 2024-12-21 17:15 | P.CNS ---
Date of Consult: 12/21/24 Chief Complaint: Hyperkalemia and chest History of Present Illness: Patient with PMH of CAD, kidney disease, presented to hospital for abnormal lab that shown high K level, patient mention that he has this chronic chest pain, stabbing in nature, has been going on for while, no worsening, no SOB, no GRANDA, no palpitations, no syncope. Allergies No Known Allergies Allergy (Verified 06/26/24 18:34) Home medications list reviewed: Yes Home Medications: Metoprolol Succinate [Toprol Xl*] 100 mg PO DAILY 04/15/22 Tamsulosin [Flomax*] 0.4 mg PO BID 04/15/22 Empagliflozin [Jardiance] 25 mg PO DAILY 04/06/23 Rosuvastatin Calcium 5 mg PO DAILY 04/06/23 traMADol HCL [Ultram*] 50 mg PO Q6H PRN 10 Days #20 tab 06/03/24 Mesalamine [Apriso] 1.5 gm PO DAILY 06/18/24 Docusate [Colace Cap*] 100 mg PO BID cap 06/26/24 Docusate/Senna [Senokot-S*] 2 tab PO BEDTIME PRN 06/26/24 Hydrocodone 7.5/APAP 325 [[place] 7.5/325 mg*] 1 tab PO Q4H PRN tab 06/26/24 Insulin Glargine,Hum.rec.anlog [Semglee] 20 unit SQ 30 MIN BEFORE HS ml 06/26/24 Melatonin [Melatonin*] 3 mg PO BEDTIME PRN PRN 06/26/24 Glucerna Shake [Glucerna*] 237 ml PO BID can 07/03/24 Arformoterol Tartrate [Brovana] 15 mcg NEB BIDRESP PRN 12/21/24 Aspirin 81 mg PO DAILY 12/21/24 Bimatoprost [Lumigan Opthalmic Drops*] 2.5 ml OP DAILY 12/21/24 Clopidogrel Bisulfate [Clopidogrel] 75 mg PO DAILY 12/21/24 Ferrous Sulfate 325 mg PO DAILY 12/21/24 Hydralazine [Apresoline*] 50 mg PO TID 12/21/24 Pantoprazole [Protonix Tab*] 40 mg PO DAILY 12/21/24 Trazodone [Desyrel*] 50 mg PO PRN PRN 12/21/24 diazePAM [Diazepam] 10 mg PO DAILY 12/21/24 - Past Medical/Surgical History Diabetic: Yes -: HTN -: DM II -: CKD IIIb (Dr. Sauceda/ [place]) -: BPH with LUTS -: Ulcerative colitis -: Left BKA 2013 -: Cardiac stents Psychosocial/ Personal History: Patient is disabled, lives at home with his daughter - Family History Mother Medical History: Heart disease, Diabetes Father Medical History: Heart disease - Social History Smoking Status: Unknown if ever smoked Alcohol use: No CD- Drugs: No Caffeine use: No Review of Systems 10-point ROS is otherwise unremarkable Physical Examination Temp Pulse Resp BP Pulse Ox 97.9 F 68 16 166/71 H 98 12/21/24 16:00 12/21/24 16:00 12/21/24 16:00 12/21/24 16:00 12/21/24 16:00 General: Alert, In no apparent distress HEENT: Atraumatic, PERRLA, Mucous membr. moist/pink, EOMI, Sclerae nonicteric Neck: Supple, 2+ carotid pulse no bruit, No LAD, Without JVD or thyroid abnormality Respiratory: Clear to auscultation bilaterally, Normal air movement Cardiovascular: Regular rate/rhythm, Normal S1 S2 Gastrointestinal: Normal bowel sounds, No tenderness Musculoskeletal: No tenderness Integumentary: No rashes Neurological: Normal gait, Normal speech, Normal tone, Normal affect Lymphatics: No axilla or inguinal lymphadenopathy Laboratory Data (last 24 hrs) 12/20/24 12/20/24 21:05 21:05 WBC 8.20 Hgb 12.3 L Hct 37.3 L Plt Count 86 L Sodium 138 Potassium 5.7 H BUN 60 H Creatinine 2.67 H Glucose 95 Total Bilirubin 0.6 AST 40 H ALT 55 Alkaline Phosphatase 92 - Problems (1) Chest pain Current Visit: Yes Status: Acute Plan: atypical with negative EKG and cardiac enzymes advised patient to keep follow up with his inventory worker to discuss outpatient stress test continue ASA 81 mg daily continue Plavix 75 mg daily (2) HTN (hypertension) Current Visit: No Status: Acute Plan: reconcille and resume patient home medications.
--- NOTE | 2024-12-21 20:35 | P.CNS ---
Date of Consult: 12/21/24 Reason for Consult: Hyperkalemia Requesting Physician: Troy Parker Chief Complaint: Hyperkalemia and chest History of Present Illness: Patient is a 64-year-old male with a known past medical history of morbid obesity and CKD stage III. 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 Patient is taking losartan. He reportedly had a potassium of 6.3. Patient states that a home health nurse came by his house to draw blood and was later called by his nephrology with the above values. He was instructed to take 10 mg of Lokelma present to the ER. His potassium upon presentation was 5.7. Patient's EKG findings not concerning for hyperkalemia. Received Lokelma in the ER. Will also go ahead and give IV insulin/D50. During my evaluation, patient complained of chest pain and palpitations. 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 Obtaining troponin now. Will admit under observation. 22:24 This 64 yrs old Male presents to ER via Wheelchair with complaints of Abnormal kb Lab Results. 22:24 Patient is a 64-year-old male who presents for abnormal lab values. Patient states he kb had labs drawn by [facility] this morning, ordered by Dr. Sauceda. Dr. Sauceda called in this evening and said that his potassium was 6.3. Told him to come to the ER for treatment. Patient denies any symptoms and has no complaints. Reports eating potatoes. Allergies No Known Allergies Allergy (Verified 06/26/24 18:34) Home medications list reviewed: Yes Home Medications: Metoprolol Succinate [Toprol Xl*] 100 mg PO DAILY 04/15/22 Tamsulosin [Flomax*] 0.4 mg PO BID 04/15/22 Empagliflozin [Jardiance] 25 mg PO DAILY 04/06/23 Rosuvastatin Calcium 5 mg PO DAILY 04/06/23 traMADol HCL [Ultram*] 50 mg PO Q6H PRN 10 Days #20 tab 06/03/24 Mesalamine [Apriso] 1.5 gm PO DAILY 06/18/24 Docusate [Colace Cap*] 100 mg PO BID cap 06/26/24 Docusate/Senna [Senokot-S*] 2 tab PO BEDTIME PRN 06/26/24 Hydrocodone 7.5/APAP 325 [[place] 7.5/325 mg*] 1 tab PO Q4H PRN tab 06/26/24 Insulin Glargine,Hum.rec.anlog [Semglee] 20 unit SQ 30 MIN BEFORE HS ml 06/26/24 Melatonin [Melatonin*] 3 mg PO BEDTIME PRN PRN 06/26/24 Glucerna Shake [Glucerna*] 237 ml PO BID can 07/03/24 Arformoterol Tartrate [Brovana] 15 mcg NEB BIDRESP PRN 12/21/24 Aspirin 81 mg PO DAILY 12/21/24 Bimatoprost [Lumigan Opthalmic Drops*] 2.5 ml OP DAILY 12/21/24 Clopidogrel Bisulfate [Clopidogrel] 75 mg PO DAILY 12/21/24 Ferrous Sulfate 325 mg PO DAILY 12/21/24 Hydralazine [Apresoline*] 50 mg PO TID 12/21/24 Pantoprazole [Protonix Tab*] 40 mg PO DAILY 12/21/24 Trazodone [Desyrel*] 50 mg PO PRN PRN 12/21/24 diazePAM [Diazepam] 10 mg PO DAILY 12/21/24 - Past Medical/Surgical History Diabetic: Yes -: HTN -: DM II -: CKD IIIb (Dr. Sauceda/ [place]) -: BPH with LUTS -: Ulcerative colitis -: Left BKA 2013 -: Cardiac stents Psychosocial/ Personal History: Patient is disabled, lives at home with his daughter - Family History Mother Medical History: Heart disease, Diabetes Father Medical History: Heart disease - Social History Smoking Status: Unknown if ever smoked Alcohol use: No CD- Drugs: No Caffeine use: No Review of Systems 10-point ROS is otherwise unremarkable Physical Examination Temp Pulse Resp BP Pulse Ox 97.9 F 68 16 166/71 H 98 12/21/24 16:00 12/21/24 16:00 12/21/24 16:00 12/21/24 16:00 12/21/24 16:00 General: In no apparent distress, Oriented x3, Cooperative HEENT: Atraumatic Neck: Supple Respiratory: Normal air movement Cardiovascular: No edema, Regular rate/rhythm Gastrointestinal: Soft and benign, Non-distended Musculoskeletal: No clubbing, No contractures Integumentary: No rashes, No cyanosis Neurological: Normal speech Laboratory Data (last 24 hrs) 12/20/24 12/20/24 21:05 21:05 WBC 8.20 Hgb 12.3 L Hct 37.3 L Plt Count 86 L Sodium 138 Potassium 5.7 H BUN 60 H Creatinine 2.67 H Glucose 95 Total Bilirubin 0.6 AST 40 H ALT 55 Alkaline Phosphatase 92 Imagings Data: LEFT VENTRICULAR WALL MOTION: NORMAL. DOPPLER/COLOR FLOW: SEE BELOW. COMMENTS: 1. NORMAL LEFT VENTRICULAR EJECTION FRACTION 60-65%. 2. NORMAL WALL MOTION. 3. GRADE I DIASTOLIC DYSFUNCTION. 4. MILD MITRAL REGURGITATION. Conclusions/Impression: Stage I MANPREET due to hypovolemia CKD III with Proteinuria -No NSAIDs -Continue IVF Hyperkalemia -Lokelma as ordered HTN with CKD/ CHF -Continue hydralazine Diastolic CHF, chronic -Low sodium diet DM II with CKD -RISS -Restart Jardiance Anemia in chronic illness Thrombocytopenia -Monitor CBC BPH with LUTS -Restart tamsulosin Case reviewed with Dr. Parker Thank you kindly for the consultation
--- NOTE | 2024-12-22 06:38 | P.DS ---
Admission Date: 12/20/24 Discharge Date: 12/21/24 Disposition: ROUTINE DISCHARGE Discharge Condition: GOOD Reason for Admission: Hyperkalemia and chest Consultations: Cardiology - Dr. Mullins Nephrology - Dr. Mahmood Brief History of Present Illness: 64yo M, PMH: morbid obesity and CKD stage III. Patient presented to the ER upon recommendation by his drug abuse counselor after outpatient blood work revealed hyperkalemia. Patient is taking losartan. He reportedly had a potassium of 6.3. Patient states that a home health nurse came by his house to draw blood and was later called by his nephrology with the above values. He was instructed to take 10 mg of Lokelma present to the ER. His potassium upon presentation was 5.7. Patient's EKG findings not concerning for hyperkalemia. Received Lokelma in the ER. Will also go ahead and give IV insulin/D50. During my evaluation, patient complained of chest pain and palpitations. He has a tapper hand he follows with in [place]. Obtaining troponin now. Will admit under observation. Hospital Course: Problem List: MANPREET on CKD3 Hyperkalemia, resolved Chest pain IDDM2 Hypertension Hx PAD s/p right BKA (06/2024) Hx CAD s/p PCI (2022) Hx BPH with LUTS Hx ulcerative colitis / GERD Physician discharge instructions: Patient presented to the ED after having routine outpatient lab work done which noted hyperkalemia (6.3). He otherwise reported feeling fine like his usual self. Patient was advised to take Lokelma and come to the ER for further evaluation. Potassium in the ED was 5.7. Patient was given Kayexelate and started on IV fluids and had improvement. Hyperkalemia resolved within the first 24 hours, and renal function was improving close to patients baseline creatinine on day of discharge. Nephrology was consulted and recommended stopping his home Losartan. He was given an additional dose of lokelma on 12/21, and no further interventions re quired given his quick turnaround. They will help facilitate close follow up appointment with Dr. Sauceda in the office and can further adjust/review medications. Patient was feeling like his normal self, labs improved, and deemed stable for discharge. Patient did report feeling some chest discomfort in the ER prior to admission. On further discussion he reports this chest pain is not new, has been chronic, and intermittent since he had his cardiac stents placed back in ~2022. He saw his [employer] recently, and reports no change in meds, no change in character/severity of pain. Troponins were negative. Cardiology was consulted and recommended following up in the office for further work up. Medications: stop losartan Follow up: PCP 3-5 days Nephrology 1-2 weeks Please call to schedule / confirm appointments Physical Exam: GEN: Alert, oriented, NAD CV: Regular rate and rhythm, no edema Pulm: Nonlabored respirations on room air, clear bilaterally ABD: soft, nontender, nondistended MSK: Bilateral BKA Neuro: Normal speech, normal affect Vital Signs/Physical Exam: Temp Pulse Resp BP Pulse Ox 97.9 F 68 16 166/71 H 98 12/21/24 16:00 12/21/24 16:00 12/21/24 16:00 12/21/24 16:00 12/21/24 16:00 Laboratory Data at Discharge: WBC 8.30 thou/uL (4.3-10.9) 12/21/24 06:43 Hgb 11.1 g/dL (13.6-17.9) L D 12/21/24 06:43 Hct 34.2 % (39.6-49.0) L 12/21/24 06:43 Plt Count 83 thou/uL (152-406) L 12/21/24 06:43 Sodium 142 mEq/L (136-145) 12/21/24 06:43 Potassium 5.0 mEq/L (3.5-5.1) 12/21/24 06:43 BUN 51 mg/dL (7-18) H 12/21/24 06:43 Creatinine 2.20 mg/dL (0.70-1.30) H 12/21/24 06:43 Glucose 75 mg/dL (74-106) 12/21/24 06:43 Total Bilirubin 0.6 mg/dL (0.2-1.0) 12/20/24 21:05 AST 40 U/L (15-37) H 12/20/24 21:05 ALT 55 U/L (16-61) 12/20/24 21:05 Alkaline Phosphatase 92 U/L (45-117) 12/20/24 21:05 Home Medications: Metoprolol Succinate [Toprol Xl*] 100 mg PO DAILY 04/15/22 Tamsulosin [Flomax*] 0.4 mg PO BID 04/15/22 Empagliflozin [Jardiance] 25 mg PO DAILY 04/06/23 Rosuvastatin Calcium 5 mg PO DAILY 04/06/23 traMADol HCL [Ultram*] 50 mg PO Q6H PRN 10 Days #20 tab 06/03/24 Mesalamine [Apriso] 1.5 gm PO DAILY 06/18/24 Docusate [Colace Cap*] 100 mg PO BID cap 06/26/24 Docusate/Senna [Senokot-S*] 2 tab PO BEDTIME PRN 06/26/24 Hydrocodone 7.5/APAP 325 [[place] 7.5/325 mg*] 1 tab PO Q4H PRN tab 06/26/24 Insulin Glargine,Hum.rec.anlog [Semglee] 20 unit SQ 30 MIN BEFORE HS ml 06/26/24 Melatonin [Melatonin*] 3 mg PO BEDTIME PRN PRN 06/26/24 Glucerna Shake [Glucerna*] 237 ml PO BID can 07/03/24 Arformoterol Tartrate [Brovana] 15 mcg NEB BIDRESP PRN 12/21/24 Aspirin 81 mg PO DAILY 12/21/24 Bimatoprost [[place] Opthalmic Drops*] 2.5 ml OP DAILY 12/21/24 Clopidogrel Bisulfate [Clopidogrel] 75 mg PO DAILY 12/21/24 Ferrous Sulfate 325 mg PO DAILY 12/21/24 Hydralazine [Apresoline*] 50 mg PO TID 12/21/24 Pantoprazole [Protonix Tab*] 40 mg PO DAILY 12/21/24 Trazodone [Desyrel*] 50 mg PO PRN PRN 12/21/24 diazePAM [Diazepam] 10 mg PO DAILY 12/21/24 Physician Discharge Instructions: Physician discharge instructions: Patient presented to the ED after having routine outpatient lab work done which noted hyperkalemia (6.3). He otherwise reported feeling fine like his usual self. Patient was advised to take Lokelma and come to the ER for further evaluation. Potassium in the ED was 5.7. Patient was given Kayexelate and started on IV fluids and had improvement. Hyperkalemia resolved within the first 24 hours, and renal function was improving close to patients baseline creatinine on day of discharge. Nephrology was consulted and recommended stopping his home Losartan. He was given an additional dose of lokelma on 12/21, and no further interventions required given his quick turnaround. They will help facilitate close follow up appointment with Dr. Sauceda in the office and can further adjust/review medications. Patient was feeling like his normal self, labs improved, and deemed stable for discharge. Patient did report feeling some chest discomfort in the ER prior to admission. On further discussion he reports this chest pain is not new, has been chronic, and intermittent since he had his cardiac stents placed back in ~2022. He saw his [employer] Operator recently, and reports no change in meds, no change in character/severity of pain. Troponins were negative. Cardiology was consulted and recommended following up in the office for further work up. Medications: stop losartan Follow up: PCP 3-5 days Nephrology 1-2 weeks Please call to schedule / confirm appointments Followup: Marlon Sauceda [Primary Care Provider] - 1-2 Weeks Time spent managing pt's care (in minutes): 45
--- NOTE | 2024-12-26 12:41 | EKG ---
Test Date: 2024-12-20 Test Time: 21:12:03 Check Viewer: GREG MEASUREMENT RESULTS: Intervals: Rate: 67 AR: 158 QRSD: 80 QT: 392 QTc: 414 [place]: P: 69 AR: 158 QRS: 100 T: 83 INTERPRETIVE STATEMENTS: Normal sinus rhythm Rightward axis Borderline ECG Compared to ECG 06/17/2024 12:23:11 Right-axis deviation now present Electronically Signed On 12-26-24 12:29:24 CDT by Facundo Mullins
== END 2024-12-21 18:03 | disposition home or self-care (01) ==
LOC: ER 19:26 → ERHOLD 23:35 → 2ND 12-21 00:56
PROVIDERS: ADMIT Internal Medicine; ATTEND Hospitalist
DX: E87.5 Hyperkalemia (principal); N17.9 Acute kidney failure, unspecified; R07.9 Chest pain, unspecified; I12.9 Hypertensive chronic kidney disease with stage 1 through stage 4 chronic kidney disease, or unspecified chronic kidney disease; N18.30 Chronic kidney disease, stage 3 unspecified; I50.32 Chronic diastolic (congestive) heart failure; E66.01 Morbid (severe) obesity due to excess calories; N40.1 Benign prostatic hyperplasia with lower urinary tract symptoms; I25.10 Atherosclerotic heart disease of native coronary artery without angina pectoris; E86.1 Hypovolemia; E11.22 Type 2 diabetes mellitus with diabetic chronic kidney disease; E11.40 Type 2 diabetes mellitus with diabetic neuropathy, unspecified; R80.9 Proteinuria, unspecified; D63.8 Anemia in other chronic diseases classified elsewhere; Z68.30 Body mass index [BMI] 30.0-30.9, adult
CPT/HCPCS: 93005; 85025 ×2; 80048; 36415; 82947 ×3; 84484; 80053; 96375; 96374; 99285; J1644; J1815; J7030; G0378 ×2; J1171